=== PATIENT | male | born 1950 | race Hispanic/Latino ===

== ENCOUNTER 2017-08-10 07:49 | Emergency (ER) | payer MEDICARE, MEDICAID ==
[2017-08-10 08:31] LABS: #Eosinphils 0.1 thou/uL (0.0-0.7); #Lymphocytes 1.3 thou/uL (1.20-3.40); #Monocytes 0.6 thou/uL (0.11-0.59); #Neutrophils 7.2 thou/uL (1.40-6.50); %Basophils 0.2 % (0.0-1.0); %Eosinophils 0.6 % (0.0-10.0); %Monocytes 6.1 % (0.0-10.0); Hemoglobin 14.1 g/dL (14.0-18.0); Mean Corpuscular HGB CONC 33.3 g/dL (32.0-36.0); Mean Corpuscular Hemoglobin 30.1 pg (27.0-31.0); Mean Corpuscular Volume 90.3 fl (80.0-94.0); Mean Platelet Volume 7.3 fL (7.4-10.4); Platelet Count 221 thou/uL (130-400); RBC Distribution Width 12.9 % (11.5-14.5); Red Blood Cell (RBC) Count 4.69 mill/uL (4.70-6.10); White Blood Cell (WBC) Count 9.1 thou/uL (4.8-10.8)
[2017-08-10 08:51] LABS: ALT (SGPT) 18 U/L (8-55); AST (SGOT) 19 U/L (5-34); Albumin 4.2 g/dL (3.4-4.8); Alkaline Phosphatase 73 U/L (40-150); Anion Gap 10 mmol/L (10-20); BUN (Urea Nitrogen) 20 mg/dL (8.4-25.7); Bilirubin, Total 0.5 mg/dL (0.2-1.2); Calc. Creatinine Clearance 0 mL/min (70-130); Carbon Dioxide 27 mmol/L (23-31); Chloride 104 mmol/L (98-107); Estimated GFR-MDRD 60; Globulin 3.2 g/dL (2.4-3.5); Glucose 111 mg/dL (80-115); Potassium 4.5 mmol/L (3.5-5.1); Protein, Total 7.4 g/dL (5.8-8.1); Sodium 136 mmol/L (136-145)
[2017-08-10 09:00] LABS: Troponin I Less than 0.010 ng/mL (< 0.028)
--- NOTE | 2017-08-10 09:09 | RAD ---
PORTABLE CHEST: Date: 08/10/17 HISTORY: Cough. FINDINGS: Lung horne are clear. No infiltrate or vascular congestion. Heart and mediastinum unremarkable. IMPRESSION: No acute findings. POS: [facility]
[2017-08-10] MEDS ORDERED: methylPREDNISolone Sod Succ/PF 125 MG/2 ML VIAL ONE (09:36)
[2017-08-10] MEDS ORDERED: Sodium Chloride 0.9% 0 ML ONE ×2 (09:43→09:45)
[2017-08-10] MEDS ORDERED: cefTRIAXone\\ROCEPHIN 1 GM, Syringe 0.4 ML in Sterile Water 9.6 ML SLOW IVP SCH (10:15)
== END 2017-08-10 10:46 | disposition home or self-care (01) ==
LOC: ERS 07:49
DX: J44.9 Chronic obstructive pulmonary disease, unspecified (principal); I50.9 Heart failure, unspecified; E66.01 Morbid (severe) obesity due to excess calories; E78.5 Hyperlipidemia, unspecified; R00.1 Bradycardia, unspecified; Z87.891 Personal history of nicotine dependence; Z79.82 Long term (current) use of aspirin; Z79.899 Other long term (current) drug therapy
CPT/HCPCS: 71045; 80053; 82553; 83880; 84484; 85025; 93005; 94640; 94760; 96374; 96375; A4216; J0696; J2930; J7050; J7620

== ENCOUNTER 2018-06-02 12:21 | Day surgery (SDC) | payer MEDICARE, MEDICAID ==
[2018-05-30 14:57] VITALS: BMI 50.8
[2018-06-02 13:02] LABS: #Lymphocytes 1.2 thou/uL (1.20-3.40); #Monocytes 0.5 thou/uL (0.11-0.59); #Neutrophils 6.4 thou/uL (1.40-6.50); %Basophils 0.3 % (0.0-1.0); %Eosinophils 0.5 % (0.0-10.0); %Lymphocytes 14.9 % (21.0-51.0); %Neutrophils 78.2 % (42.0-75.0); Hemoglobin 13.1 g/dL (14.0-18.0); Mean Corpuscular HGB CONC 32.3 g/dL (32.0-36.0); Mean Corpuscular Hemoglobin 29.6 pg (27.0-31.0); Mean Corpuscular Volume 91.7 fL (78.0-98.0); Mean Platelet Volume 7.4 fL (7.4-10.4); Platelet Count 229 thou/uL (130-400); RBC Distribution Width 13.6 % (11.5-14.5); Red Blood Cell (RBC) Count 4.44 mill/uL (4.70-6.10); White Blood Cell (WBC) Count 8.2 thou/uL (4.8-10.8)
[2018-06-02 13:11] LABS: INR-International Normal Ratio 1.3; PTT 49.9 SEC (22.9-36.1); Prothrombin Time 15.8 SEC (12.0-14.7)
[2018-06-02 13:21] LABS: Anion Gap 12 mmol/L (10-20); BUN (Urea Nitrogen) 23 mg/dL (8.4-25.7); Calc. Creatinine Clearance 118 mL/min (70-130); Calcium 8.8 mg/dL (7.8-10.44); Carbon Dioxide 28 mmol/L (23-31); Chloride 105 mmol/L (98-107); Estimated GFR-MDRD 55; Glucose 101 mg/dL (80-115); Potassium 4.7 mmol/L (3.5-5.1); Sodium 140 mmol/L (136-145)
--- NOTE | 2018-06-02 15:56 | PRG ---
DATE OF SERVICE: 06/02/2018 SUBJECTIVE: I am seeing Mr. Quijano here at our [facility] PACU for a planned cardioversion. He was seen in our office on May 21, at which point, the flecainide was increased to 150 mg twice a day. He tolerated this well and is feeling better, but had some dizziness since. On today's EKG, he is back in sinus rhythm with radiation monitor reveals heart rate between 45-55 beats per minute. He does not pass out, though. No stroke-like symptoms. He continues on blood thinning medication regimen. No fever, chills, or cough. REVIEW OF SYSTEMS: Rest of 12-point system is otherwise unremarkable. OBJECTIVE DATA: VITAL SIGNS: Blood pressure is 120/80, but systolic blood pressure of 88 was seen on sitting up, heart rate 48, and respirations 20. The patient is afebrile. GENERAL: Alert and oriented, morbidly obese man, in no apparent distress. NECK: Supple. Jugular veins not distended. CHEST: Coarse. No crackles. HEART: Sounds are bradycardic, but regular. No murmur or gallop. ABDOMEN: Benign. Bowel sounds positive. EXTREMITIES: Lower extremities without edema, clubbing, or cyanosis. ASSESSMENT AND PLAN: Mr. Quijano is a pleasant 67-year-old Syriac-speaking gentleman with history of morbid obesity, hypertension, hypercholesteremia, and negative left heart catheterization in 2008 with preserved left ventricular ejection fraction. He does have history of severe pulmonary hypertension. It is likely due to obesity, possible respiratory issues. He has been managed with flecainide in the past with reasonable control of his atrial fibrillation, now had recurrent events on flecainide. We have increased the flecainide to 150 mg twice a day. Unfortunately, he is relatively a poor candidate for pulmonary venous isolation procedure due to the morbid obesity and history of pulmonary hypertension. We discussed the importance of weight loss. He is considering this and trying to eat less. Also due to his comorbidities, antiarrhythmic choices are limited, at this point, we agreed on 150 mg twice a day flecainide which seems to be controlling his rhythm better. For now, continue this. I would like to obtain a monitor hence he has lengthy bradycardia to assess any extreme. Also, we will reduce the metoprolol to 12.5 mg twice a day. Follow up as planned in about 6 weeks from now. Job ID: [id number]
== END 2018-06-02 14:47 | disposition home or self-care (01) ==
LOC: SDC 12:21
PROVIDERS: ATTEND Internal Medicine Cardiovascular Disease
DX: I48.91 Unspecified atrial fibrillation (principal); Z53.8 Procedure and treatment not carried out for other reasons
CPT/HCPCS: 36415; 80048; 85025; 85610; 85730; 93005; 93010

== ENCOUNTER 2018-06-06 19:11 | Observation (INO) | payer MEDICAID, MEDICARE ==
[2018-06-06] MEDS ORDERED: Atropine Sulfate 0.4 mg/1 ml Vial IVP PRN (21:55)
[2018-06-06 22:50] VITALS: BMI 50.2
[2018-06-07] MEDS ORDERED: Acetaminophen 650 MG Suppository PR PRN (02:01)
[2018-06-07] MEDS ORDERED: Acetaminophen 325 MG TAB PO PRN (02:01)
[2018-06-07 06:06] LABS: #Eosinphils 0.1 thou/uL (0.0-0.7); #Lymphocytes 1.6 thou/uL (1.20-3.40); #Monocytes 0.7 thou/uL (0.11-0.59); #Neutrophils 6.5 thou/uL (1.40-6.50); %Basophils 0.3 % (0.0-1.0); %Eosinophils 0.7 % (0.0-10.0); %Lymphocytes 17.6 % (21.0-51.0); %Monocytes 7.6 % (0.0-10.0); %Neutrophils 73.7 % (42.0-75.0); Hemoglobin 13.7 g/dL (14.0-18.0); Mean Corpuscular HGB CONC 31.3 g/dL (32.0-36.0); Mean Corpuscular Hemoglobin 29.4 pg (27.0-31.0); Mean Corpuscular Volume 93.8 fL (78.0-98.0); Mean Platelet Volume 7.6 fL (7.4-10.4); Platelet Count 241 thou/uL (130-400); RBC Distribution Width 13.6 % (11.5-14.5); Red Blood Cell (RBC) Count 4.67 mill/uL (4.70-6.10); White Blood Cell (WBC) Count 8.8 thou/uL (4.8-10.8)
[2018-06-07 06:26] LABS: Anion Gap 15 mmol/L (10-20); BUN (Urea Nitrogen) 21 mg/dL (8.4-25.7); Calc. Creatinine Clearance 112 mL/min (70-130); Calcium 9.2 mg/dL (7.8-10.44); Carbon Dioxide 28 mmol/L (23-31); Chloride 101 mmol/L (98-107); Estimated GFR-MDRD 53; Glucose 86 mg/dL (80-115); Potassium 4.6 mmol/L (3.5-5.1); Sodium 139 mmol/L (136-145)
[2018-06-07] MEDS: Apixaban 5 MG TAB PO SCH ×2 (10:22→21:33)
[2018-06-07] MEDS: Furosemide 40 MG TAB PO SCH (10:22)
[2018-06-07] MEDS ORDERED: Famotidine 20 MG TAB PO SCH (21:00)
[2018-06-07] MEDS ORDERED: Atorvastatin Calcium 20 MG TAB PO SCH (21:00)
[2018-06-08 06:47] LABS: Calcium 8.7 mg/dL (7.8-10.44); Chloride 105 mmol/L (98-107); Potassium 5.6 mmol/L (3.5-5.1); Sodium 135 mmol/L (136-145)
[2018-06-08 06:48] LABS: Glucose 85 mg/dL (80-115)
[2018-06-08 06:49] LABS: Carbon Dioxide 17 mmol/L (23-31)
[2018-06-08 06:51] LABS: Calc. Creatinine Clearance 123 mL/min (70-130); Estimated GFR-MDRD 59
[2018-06-08 06:52] LABS: BUN (Urea Nitrogen) 22 mg/dL (8.4-25.7)
[2018-06-08 06:53] LABS: Anion Gap 19 mmol/L (10-20)
[2018-06-08] MEDS: Furosemide 40 MG TAB PO SCH (08:34)
[2018-06-08] MEDS: Apixaban 5 MG TAB PO SCH (08:34)
[2018-06-08 11:49] VITALS: TEMP 98.1
[2018-06-08 12:50] LABS: Potassium 4.5 mmol/L (3.5-5.1)
[2018-06-08 17:12] VITALS: BP 133/87
--- NOTE | 2018-06-09 02:05 | DIS ---
DATE OF ADMISSION: 06/06/2018 DATE OF DISCHARGE: 06/08/2018 ALLERGIES: NO KNOWN DRUG ALLERGIES. CHIEF COMPLAINT: Bradycardia, unintentional flecainide overdose. FINAL DIAGNOSES: 1. Symptomatic bradycardia, secondary to unintentional increase in flecainide dose, resolved. 2. Paroxysmal atrial fibrillation. 3. Morbid obesity. 4. Hypertension. 5. Chronic venous insufficiency and chronic venous stasis dermatitis. 6. Obstructive sleep apnea. PROCEDURES PERFORMED: None. LABORATORY RESULTS: Hemoglobin 13.7, hematocrit 43.8. Sodium 135, potassium 4.5, chloride 105, anion gap 19, BUN 22, creatinine 1.23, estimated GFR 59, glucose 85, and calcium 8.7. CONSULTATIONS: None. HOSPITAL COURSE: The patient is a Syriac-speaking 67-year-old male with past medical history significant for morbid obesity and paroxysmal atrial fibrillation, who presented to the ER at the behest of his primary care physician after being seen in the office on 06/06. During that visit, PCP realized that the patient was actually taking 300 mg twice daily of flecainide as opposed to 150 mg p.o. b.i.d. She sent him to the ER for further workup and evaluation. The patient was actually seen by his EP distance learning program coordinator, Dr. Gavin, on 06/02/2018. He was actually scheduled for a cardioversion that day, but was back in normal sinus rhythm. EKG on 06/02 did show heart rate between 45 and 55 beats per minute. At that time, the patient was told to continue his flecainide 150 mg b.i.d. as well as to reduce his metoprolol to 12.5 mg twice daily. Apparently, the patient did not understand those directions. Since his hospitalization, the metoprolol and the flecainide have been held. His EKG on arrival did show sinus bradycardia with a ventricular rate of 45 beats per minute. As mentioned, his metoprolol and flecainide have been held, and his heart rate did indeed recovery per telemetry review to 80s to 100s overnight. This morning and throughout the afternoon, the patient's heart rate has been 60s to 70s. He has no symptoms. He denies any chest pain, shortness of breath, palpitations, or dizziness. He has ambulated around the room. His family is at the bedside and care has been discussed with length about appropriate medication doses. Poison Control was called when the patient was initially in the emergency room and their recommendation was admission for observation, but they did not recommend any other treatment. PHYSICAL EXAMINATION: VITAL SIGNS: Blood pressure 129/67, O2 saturation 98% on room air, pulse 72, and afebrile. GENERAL: The patient is awake, alert, and oriented x3. He is in no acute distress. He is breathing comfortably. HEENT: Atraumatic, normocephalic. Eye movement intact. NECK: Supple, no JVD. No carotid bruits. RESPIRATORY: Regular respiratory rate and pattern, clear to auscultation bilaterally. CV: S1, S2, regular rate and rhythm, no appreciable murmurs, rubs, or gallops. GI: Soft, nontender, morbidly obese. PERIPHERAL VASCULAR: Lower extremities positive for dark skin pigment consistent with chronic venous stasis dermatitis, trace edema bilaterally. NEUROLOGIC: Nonfocal. CONDITION AT DISCHARGE: Stable. DISCHARGE MEDICATIONS: 1. Eliquis 5 mg one tablet p.o. b.i.d. 2. Famotidine 20 mg tablet one tablet p.o. at bedtime. 3. Furosemide 40 mg tablet one p.o. daily. 4. Atorvastatin 20 mg one tablet p.o. at bedtime. 5. Enalapril 10 mg one tablet daily. His home medication of metoprolol has been stopped. I have instructed him to restart flecainide 150 mg p.o. b.i.d. in another 24 hours. This has been discussed with the patient at length. DISCHARGE DISPOSITION: Home. PLAN: The patient's heart rate has recovered, he is completely asymptomatic, and will be discharged home today. Considering the 20-hour half-life of flecainide, it is reasonable for him to restart his flecainide day after tomorrow. He has remained in sinus rhythm, and serial EKGs have showed QTc in the 480 millisecond range. He will follow up with Dr. Gavin as an outpatient. We will hold metoprolol indefinitely in light of bradycardia, and this will be deferred to Dr. Gavin to manage as an outpatient. He has been counseled regarding the dangers and risks to help with his morbid obesity. Diet and exercise discussed. He will also follow up with his primary care physician. Job ID: [id number]
--- NOTE | 2018-06-09 07:53 | HP ---
CHIEF COMPLAINT: Flecainide overdose, asymptomatic. HISTORY OF PRESENT ILLNESS: The patient is a 67-year-old male, who speaks very little Greenlandic, who presented to the emergency room in [place]. Yesterday, apparently he was taking flecainide double dose, instead of one tablet he was taking two tablets twice a day. He was bradycardic and was sent to emergency room at [facility] for further management. The patient did not have any complaints to offer. He denied any chest pain. He denied any shortness of breath. He denied any palpitations. PAST MEDICAL HISTORY: Positive for: 1. Congestive heart failure. 2. Atrial fibrillation. 3. Gastroesophageal reflux disease. 4. Hyperlipidemia. 5. Osteoarthritis. 6. Obesity. 7. Chronic obstructive pulmonary disease. 8. Sleep apnea. PAST SURGICAL HISTORY: Umbilical hernia repair. ALLERGIES: NONE. FAMILY HISTORY: Parents in their 70s and 80s of unclear cause. SOCIAL HISTORY: He used to smoke. He quit 10 years ago. He denies any alcohol intake and illicit drug use. MEDICATIONS: 1. Atorvastatin 20 mg at bedtime. 2. Eliquis 5 mg twice a day. 3. Enalapril 10 mg twice a day. 4. Flecainide as stated above double dose, which was 2 tablets twice a day for 2 weeks by accident. 5. Lasix 40 mg once a day. 6. Lopressor 50 mg half a tablet twice a day. REVIEW OF SYSTEMS: Unobtainable at this moment since the patient does not speak much Greenlandic and official court interpreter is not available. PHYSICAL EXAMINATION: VITAL SIGNS: Blood pressure is 124/73, pulse is 48, temperature is 97.9, respirations 20, and O2 saturation is 99% on 2 L by nasal cannula. GENERAL: He is not in any distress during my visit. His is present in the room. HEENT: His head is atraumatic and normocephalic. Eyes, pupils are responding to light properly. Sclerae are nonicteric. Oral mucosa is moist. NECK: Supple. LUNGS: Breath sounds somewhat diminished at both bases. HEART: S1 and S2. Bradycardic. No S3. No S4. ABDOMEN: Soft, obese, distended, but nontender to palpation. No guarding. No masses. EXTREMITIES: 1 to 2+ peripheral edema with black skin discoloration of both lower extremities above both ankles. Pulses are somewhat diminished on both feet on dorsalis pedis and tibialis posterior arteries similar bilaterally. NEUROLOGIC: He follows my commands. He moves his all 4 extremities. There are no any motor or sensory deficits. Cranial nerves are intact. LABORATORY DATA: Labs showed white count of 8.8, hemoglobin 13.7, hematocrit 43.8, platelet count 241,000. Normal electrolytes. Creatinine 1.35, glucose 86, calcium 9.2, and the rest of chemistry within normal limits. IMPRESSION: 1. Overdose on flecainide with bradycardia on the heart monitoring. The patient is asymptomatic. 2. Bradycardia secondary to #1. 3. History of congestive heart failure. 4. History of chronic obstructive pulmonary disease. 5. Hyperlipidemia. 6. History of atrial fibrillation. 7. Noncompliance. 8. Osteoarthritis. 9. Obesity. 10. Sleep apnea. 11. Gastroesophageal reflux disease. PLAN: Plan is admission to observation. Condition is fair. Telemetry bed. Cardiac monitoring. Diet, low salt. Activity, bedrest and bathroom privileges without assistance. He is on apixaban. We are going to continue that. We will do SCDs for DVT prophylaxis. We are holding his flecainide and beta eusebia. We will restart his IRENE inhibitor, most likely tomorrow. His creatinine is slightly elevated at 1.35. This could be related to his diuretic use. We will continue Lasix starting tomorrow after repeating his creatinine in the morning. [facility] from the emergency room and they recommend just monitoring and supportive care, and the patient should be able to go home in the next approximately 48 hours most likely. Job ID: [id number]
== END 2018-06-08 17:32 | disposition home or self-care (01) ==
LOC: ERS 19:11 → 2NO 19:50
PROVIDERS: ADMIT Hospitalist; ATTEND Hospitalist
DX: T46.2X1A Poisoning by other antidysrhythmic drugs, accidental (unintentional), initial encounter (principal); R00.1 Bradycardia, unspecified; I48.0 Paroxysmal atrial fibrillation; E66.01 Morbid (severe) obesity due to excess calories; Z68.43 Body mass index [BMI] 50.0-59.9, adult; I10 Essential (primary) hypertension; I87.2 Venous insufficiency (chronic) (peripheral); G47.33 Obstructive sleep apnea (adult) (pediatric); K21.9 Gastro-esophageal reflux disease without esophagitis; E78.5 Hyperlipidemia, unspecified; M19.90 Unspecified osteoarthritis, unspecified site; J44.9 Chronic obstructive pulmonary disease, unspecified; Z87.891 Personal history of nicotine dependence; Z79.01 Long term (current) use of anticoagulants; Z79.899 Other long term (current) drug therapy; Z98.890 Other specified postprocedural states
CPT/HCPCS: 80048 ×2; 84132; 85025; 93005 ×2; 99285; G0378 ×2; 36415; 93010

== ENCOUNTER 2018-07-04 07:03 | Observation (INO) | payer MEDICARE, MEDICAID ==
[2018-07-04 07:58] LABS: #Lymphocytes 1.4 thou/uL (1.20-3.40); #Monocytes 0.4 thou/uL (0.11-0.59); #Neutrophils 5.8 thou/uL (1.40-6.50); %Basophils 0.1 % (0.0-1.0); %Eosinophils 0.6 % (0.0-10.0); %Lymphocytes 17.9 % (21.0-51.0); %Monocytes 4.8 % (0.0-10.0); %Neutrophils 76.5 % (42.0-75.0); Hemoglobin 13.1 g/dL (14.0-18.0); Mean Corpuscular HGB CONC 32.1 g/dL (32.0-36.0); Mean Corpuscular Hemoglobin 28.6 pg (27.0-31.0); Mean Corpuscular Volume 89.1 fL (78.0-98.0); Platelet Count 222 thou/uL (130-400); RBC Distribution Width 13.1 % (11.5-14.5); Red Blood Cell (RBC) Count 4.57 mill/uL (4.70-6.10); White Blood Cell (WBC) Count 7.6 thou/uL (4.8-10.8)
--- NOTE | 2018-07-04 08:02 | RAD ---
FPortable frontal chest radiograph: 07/04/2018 COMPARISON: 06/06/2018 HISTORY: Chest pain and left arm numbness FINDINGS: Mild pulmonary vascular prominence. Prominent enlargement of the cardiac silhouette, stable . No focal consolidation or alveolar edema. Evaluation of the lung bases limited secondary to enlarge d cardiac silhouette, portable technique, and patient body habitus. IMPRESSION: Prominent cardiac silhouette.
[2018-07-04 08:26] LABS: ALT (SGPT) 15 U/L (8-55); AST (SGOT) 17 U/L (5-34); Albumin 3.9 g/dL (3.4-4.8); Alkaline Phosphatase 69 U/L (40-150); Anion Gap 11 mmol/L (10-20); BUN (Urea Nitrogen) 20 mg/dL (8.4-25.7); Bilirubin, Total 0.5 mg/dL (0.2-1.2); Calc. Creatinine Clearance 0 mL/min (70-130); Calcium 8.9 mg/dL (7.8-10.44); Carbon Dioxide 28 mmol/L (23-31); Chloride 102 mmol/L (98-107); Estimated GFR-MDRD 49; Globulin 2.9 g/dL (2.4-3.5); Glucose 137 mg/dL (80-115); Potassium 4.2 mmol/L (3.5-5.1); Protein, Total 6.8 g/dL (5.8-8.1); Sodium 137 mmol/L (136-145)
[2018-07-04] MEDS ORDERED: Ondansetron PF 4 MG/2 ML Vial IVP PRN (09:00)
[2018-07-04] MEDS ORDERED: Ondansetron ODT 4 MG TAB SL PRN (09:00)
[2018-07-04] MEDS ORDERED: Acetaminophen 325 MG TAB PO PRN (09:00)
[2018-07-04] MEDS ORDERED: Aspirin 300 MG Suppository ONE (09:16)
[2018-07-04] MEDS ORDERED: Aspirin 325 MG TAB ONE (09:17)
[2018-07-04 11:10] LABS: Troponin I Less than 0.010 ng/mL (< 0.028)
[2018-07-04 11:23] VITALS: BMI 49.8
[2018-07-04 13:41] LABS: Troponin I Less than 0.010 ng/mL (< 0.028)
--- NOTE | 2018-07-04 16:07 | HP ---
CHIEF COMPLAINT: Chest pain. HISTORY OF PRESENT ILLNESS: This patient is a 67-year-old male, who presented via the emergency department, complaining of chest pain and shortness of breath history. The patient reported sensation of chest pressure on the left side of the chest starting yesterday. It lasted for about 4 hours and then spontaneously resolved. He had not had prior symptoms like this previously. He states that the pressure was associated with some shortness of breath and lightheadedness as well as some numbness that he felt going down his left arm. He states that the dizziness and shortness of breath resolved with the chest symptoms, however, the numbness has persisted and is only now starting to completely resolve. He does have some generalized exertional dyspnea, but none at rest. He has edema in his lower extremities. It was worse yesterday. Denies any recent medication changes, palpitations, other neurologic symptoms, nausea, or vomiting. REVIEW OF SYSTEMS: Notable for some constipation, which he relates to medications. All other systems reviewed and pertinent positives and negatives noted in the history of present illness. PAST MEDICAL HISTORY: Notable for atrial fibrillation. The patient was recently admitted to the hospital with a flecainide overdose due to some miscommunication, but he continues to follow with Dr. Gavin and remains on the flecainide. He has a history of normal heart cath in June of 2016 showing normal coronaries, but he did have severe pulmonary hypertension at that time, had an echo in June 2016 showing an ejection fraction of 55% to 60% showing mild atrial dilatation, mild MR, and mild TR. He has morbid obesity, has obstructive sleep apnea for which he wears CPAP. Has hyperlipidemia, osteoarthritis, reflux, COPD, obstructive sleep apnea, and as mentioned above, severe pulmonary hypertension. He also has history of lower extremity blood clots. PAST SURGICAL HISTORY: Umbilical hernia repair. FAMILY HISTORY: Reviewed and negative per the patient. SOCIAL HISTORY: Former smoker, quit 10 years ago. Denies alcohol or drugs. He is . He is full code and his is his surrogate decision maker. ALLERGIES: NONE. CURRENT MEDICATIONS: 1. Atorvastatin 20 mg p.o. at bedtime. 2. Eliquis 5 mg p.o. b.i.d. 3. Famotidine 20 mg p.o. at bedtime. 4. Lasix 40 mg p.o. daily. 5. Enalapril 10 mg p.o. daily. 6. Flecainide 150 mg b.i.d. PHYSICAL EXAMINATION: VITAL SIGNS: Blood pressure 141/88, pulse 61, respirations 16, and O2 sat 96% on room air. GENERAL APPEARANCE: Age-appropriate male, in no distress. He is awake and alert. HEENT: PERRL. No OP lesions. Anicteric sclera. NECK: Supple and symmetric with no lymphadenopathy, JVD, or bruits. HEART: Regular with no murmurs, gallops, or rubs. LUNGS: Clear to auscultation bilaterally with no wheezes or rales. Fair air exchange. ABDOMEN: Soft, nontender, and nondistended. Normal bowel sounds. No guarding or organomegaly. EXTREMITIES: No cyanosis or clubbing. He does have 1+ pretibial pitting edema with chronic stasis dermatitis in both calves. Pulses are present, symmetric. SKIN: Warm and dry with no wheezes or rashes other than the hyperpigmentation associated with chronic stasis dermatitis. PSYCH: The patient has normal affect and normal behavior. NEUROLOGIC: Alert and oriented x3. Cranial nerves intact. Very minimal decreased sensation in the left hand. LABORATORY DATA: White count 7.6, hemoglobin 13.1, and platelets 222. Sodium 137, potassium 4.2, chloride 102, CO2 of 28, BUN 20, creatinine is 1.44, and glucose 133. Troponin less than 0.01. LFTs normal. IMAGING DATA: Chest x-ray shows prominent cardiac silhouette, but no acute cardiopulmonary disease. EKG shows first-degree AV block. IMPRESSION AND PLAN: 1. Chest pain that has resolved. The patient has a history of negative heart catheterization 2 years ago making significant coronary occlusive disease unlikely. The patient is admitted to observation. We will continue with telemetry monitoring and serial troponins. 2. History of atrial fibrillation. The patient's symptoms could potentially be related to arrhythmia. We will notify Dr. Gavin of the patient's admission. 3. Left upper extremity paresthesia, again the etiology is unclear. Does not appear to be transient ischemic attack related as it was in conjunction with the chest discomfort and appears to be resolving spontaneously. 4. Hyperlipidemia. Continue with the atorvastatin. 5. History of atrial fibrillation. Continue with the Eliquis and flecainide. 6. Hypertension. Continue enalapril. 7. Chronic kidney disease, stage 3. His creatinine is consistent with his previous readings. No further workup indicated. Job ID: [id number]
[2018-07-04] MEDS ORDERED: Atorvastatin Calcium 20 MG TAB PO SCH (21:45)
[2018-07-04] MEDS ORDERED: Apixaban 5 MG TAB PO SCH (21:45)
[2018-07-04] MEDS ORDERED: Flecainide 50 MG TAB PO SCH (22:00)
[2018-07-05 08:09] VITALS: BP 137/65; TEMP 97.7
[2018-07-05] MEDS ORDERED: Apixaban 5 MG TAB PO SCH (09:00)
[2018-07-05] MEDS ORDERED: Flecainide 50 MG TAB PO SCH (09:00)
[2018-07-05] MEDS ORDERED: Furosemide 40 MG TAB PO SCH (09:00)
--- NOTE | 2018-07-05 10:56 | DIS ---
DATE OF ADMISSION: 07/04/2018 DATE OF DISCHARGE: 07/05/2018 ALLERGIES: NO KNOWN DRUG ALLERGIES. CHIEF COMPLAINT: Chest pain, left arm numbness. FINAL DIAGNOSES: 1. Chest pain with left arm paresthesia, atypical, resolved, acute coronary syndrome ruled out. Suspect musculoskeletal radiculopathy. Normal coronary arteries per left heart catheterization in June 2016. 2. Severe obesity. 3. Obstructive sleep apnea resulting in pulmonary hypertension. 4. Paroxysmal atrial fibrillation, CHADS-VASc 3, anticoagulated with Eliquis, currently in sinus rhythm on flecainide. He will be maintained on flecainide, followed by Dr. Gavin. 5. Chronic venous insufficiency and chronic venous dermatitis. PROCEDURES PERFORMED: None. LABORATORY RESULTS: White blood cell count 7.6, hemoglobin 13.1, hematocrit 40.1, platelets 222. Sodium 137, potassium 4.2, chloride 102, BUN 20, creatinine 1.44. Liver function enzymes within normal limits. Troponin is negative x3. IMAGING RESULTS: Chest x-ray shows a prominent cardiac silhouette and no other acute cardiopulmonary process. CONSULTATIONS: None. VITAL SIGNS: Blood pressure is 137/65, O2 saturation is 93% on room air, respirations are 20. The patient is afebrile. Pulse is 63. HOSPITAL COURSE: The patient is a Irish-speaking only, 67-year-old male with past medical history significant for morbid obesity, pulmonary hypertension, paroxysmal atrial fibrillation, and obstructive sleep apnea, who presented to the hospital with complaints of chest discomfort that had actually completely resolved the day prior to his presentation at the ER. He states that the chest discomfort lasted for about 4 hours, before completely resolving on its own. He did have some numbness up and down his left arm associated with the discomfort along with some shortness of breath. The shortness of breath resolved along with the chest discomfort, but he did have some lingering symptoms of paresthesia down his left arm, so he presented to the hospital for further workup and treatment. He was admitted for chest pain rule out. All of his troponins have been negative. He has ambulated the halls without any issue. All of his presenting symptoms have now completely resolved. He denies any further chest discomfort, shortness of breath, dizziness, or paresthesias. Dr. Alexander did discuss the case with Dr. aGvin, who recommended admission overnight for telemetry monitoring. Per telemetry, the patient has remained in sinus rhythm throughout the night. He has had no pauses or noted arrhythmias. PHYSICAL EXAMINATION: GENERAL: This is a morbidly obese male, resting comfortably in no acute distress. HEENT: Atraumatic and normocephalic. Eye movements intact. Mucous membranes are moist. NECK: Supple, obese. No appreciable JVD. No carotid bruits. RESPIRATORY: Regular respiratory rate and pattern. Clear to auscultation bilaterally. CV: S1 and S2. Regular rate and rhythm. No appreciable murmurs, rubs, or gallops. GI: Abdomen is soft and nontender. Normal bowel sounds. Obese. PERIPHERAL VASCULAR: The patient has trace pitting edema bilaterally along with skin changes consistent with chronic venous stasis dermatitis. MUSCULOSKELETAL: No joint effusion or swelling. NEUROLOGIC: Cranial nerves 2 through 12 were intact. The patient has no focal deficits at this time. SKIN: Warm and dry. Chronic venous stasis dermatitis of the lower extremities as mentioned above. CONDITION AT DISCHARGE: Stable. DISCHARGE MEDICATIONS: 1. Eliquis 5 mg tablet one tablet p.o. b.i.d. 2. Enalapril 10 mg tablet one tablet p.o. b.i.d. 3. Flecainide 150 mg tablet p.o. b.i.d. 4. LASIX 40 mg tab daily. 5. Lipitor 20 mg tab at bedtime. DISCHARGE DISPOSITION: Home. PLAN: The patient will continue to monitor his symptoms. I have counseled him extensively on the importance of weight loss and diet. I suspect that some of his symptoms of paresthesia might be musculoskeletal discomfort from his body habitus. In any case, all of his symptoms have resolved and ACS has been ruled out. He will continue his home medications including flecainide and Eliquis. He will follow up in the outpatient setting with his primary care doctor and Dr. Gavin. Care discussed with Dr. Alexander, who agrees with the above. Job ID: [id number]
[2018-07-05] MEDS ORDERED: Atorvastatin Calcium 20 MG TAB PO SCH (21:00)
== END 2018-07-05 10:16 | disposition home or self-care (01) ==
LOC: ERS 07:03 → 2SW 08:49
PROVIDERS: ADMIT Internal Medicine; ATTEND Internal Medicine
DX: R07.89 Other chest pain (principal); G47.33 Obstructive sleep apnea (adult) (pediatric); E78.5 Hyperlipidemia, unspecified; M19.90 Unspecified osteoarthritis, unspecified site; K21.9 Gastro-esophageal reflux disease without esophagitis; J44.9 Chronic obstructive pulmonary disease, unspecified; I27.20 Pulmonary hypertension, unspecified; I12.9 Hypertensive chronic kidney disease with stage 1 through stage 4 chronic kidney disease, or unspecified chronic kidney disease; N18.3 Chronic kidney disease, stage 3 (moderate); I48.0 Paroxysmal atrial fibrillation; I87.2 Venous insufficiency (chronic) (peripheral); E66.01 Morbid (severe) obesity due to excess calories; Z68.42 Body mass index [BMI] 45.0-49.9, adult; Z87.891 Personal history of nicotine dependence; Z79.01 Long term (current) use of anticoagulants; Z79.899 Other long term (current) drug therapy; Z99.89 Dependence on other enabling machines and devices
CPT/HCPCS: 71045; 80053; 84484 ×2; 85025; 93005; 99285; G0378 ×2; 36415

== ENCOUNTER 2018-09-14 18:54 | Observation (INO) | payer MEDICARE, MEDICAID ==
--- NOTE | 2018-09-14 19:25 | RAD ---
RADIOGRAPH CHEST 1 VIEW: DATE: 09/14/2018 HISTORY: 68-year-old male with chest pain FINDINGS: There is cardiomegaly. There is no evidence of airspace density, pulmonary edema, or pneumothorax. Th e lateral costophrenic angles are not effaced. Large bilateral pericardial fat pads partially obscuring lung bases. No interval change overall compared to 10/14/2016. IMPRESSION: 1) No acute pulmonary findings. 2) cardiomegaly without congestive heart failure.
[2018-09-14 19:29] LABS: #Eosinphils 0.1 thou/uL (0.0-0.7); #Lymphocytes 1.5 thou/uL (1.20-3.40); #Monocytes 0.8 thou/uL (0.11-0.59); #Neutrophils 7.5 thou/uL (1.40-6.50); %Basophils 0.2 % (0.0-1.0); %Eosinophils 0.6 % (0.0-10.0); %Lymphocytes 15.2 % (21.0-51.0); %Monocytes 7.7 % (0.0-10.0); %Neutrophils 76.2 % (42.0-75.0); Mean Corpuscular HGB CONC 32.6 g/dL (32.0-36.0); Mean Corpuscular Hemoglobin 29.3 pg (27.0-31.0); Mean Corpuscular Volume 89.6 fL (78.0-98.0); Mean Platelet Volume 7.4 fL (7.4-10.4); Platelet Count 224 thou/uL (130-400); RBC Distribution Width 13.1 % (11.5-14.5); Red Blood Cell (RBC) Count 4.43 mill/uL (4.70-6.10); White Blood Cell (WBC) Count 9.8 thou/uL (4.8-10.8)
[2018-09-14 19:54] LABS: ALT (SGPT) 13 U/L (8-55); AST (SGOT) 16 U/L (5-34); Albumin 4.2 g/dL (3.4-4.8); Alkaline Phosphatase 75 U/L (40-150); Anion Gap 15 mmol/L (10-20); BUN (Urea Nitrogen) 26 mg/dL (8.4-25.7); Bilirubin, Total 0.4 mg/dL (0.2-1.2); CK (CPK) 92 U/L (30-200); Calc. Creatinine Clearance 0 mL/min (70-130); Calcium 8.9 mg/dL (7.8-10.44); Carbon Dioxide 24 mmol/L (23-31); Chloride 104 mmol/L (98-107); Estimated GFR-MDRD 57; Globulin 2.6 g/dL (2.4-3.5); Glucose 114 mg/dL (80-115); Potassium 4.4 mmol/L (3.5-5.1); Protein, Total 6.8 g/dL (5.8-8.1); Sodium 139 mmol/L (136-145)
[2018-09-14] MEDS ORDERED: Albuterol Sulfate 2.5 mg/3 ml Neb ONE (20:11)
[2018-09-14] MEDS ORDERED: HYDROcodone/Acetaminophen 5/325 mg Tablet PO PRN ×2 (22:16)
[2018-09-14] MEDS ORDERED: Acetaminophen 325 MG TAB PO PRN (22:16)
[2018-09-14] MEDS ORDERED: Ondansetron ODT 4 MG TAB SL PRN (22:16)
[2018-09-14] MEDS ORDERED: Ondansetron PF 4 MG/2 ML Vial IVP PRN (22:16)
[2018-09-14] MEDS ORDERED: Aspirin 325 MG TAB PO SCH (22:30)
[2018-09-14 22:42] VITALS: BMI 50.9
[2018-09-14 22:56] LABS: Troponin I Less than 0.010 ng/mL (< 0.028)
--- NOTE | 2018-09-15 02:10 | HP ---
PRIMARY CARE PHYSICIAN: Juanita Jin PA-C CODE STATUS: Full code. TIME OF EVALUATION: 1105 hours. CHIEF COMPLAINT: Chest pain. HISTORY OF PRESENT ILLNESS: A 68-year-old male patient with past medical history of obesity, congestive heart failure, hyperlipidemia, came to the hospital after having chest pain that was ongoing, left-sided, no specific radiation. The chest pain lasted for one hour. It was dull, started suddenly. No clear triggers. No alleviating factors. REVIEW OF SYSTEMS: CONSTITUTIONAL: No fever, chills, or generalized weakness. RESPIRATORY: No cough, sputum production, or shortness of breath. CARDIOVASCULAR: The patient has chest pain as described in HPI. No palpitation. GASTROINTESTINAL: No nausea, vomiting, diarrhea, or abdominal pain. STAFF HOME THERAPY RN: No dizziness, headache, or feeling lightheaded. GENITOURINARY: No burning on urination. EXTREMITIES: No leg swelling. All other systems were reviewed and negative except for the findings mentioned above. PAST MEDICAL HISTORY: As mentioned in the HPI. PAST SURGICAL HISTORY: Hernia repair. PSYCHIATRIC HISTORY: No previous psych history. FAMILY HISTORY:Reviewed and no contributory for current presentation. SOCIAL HISTORY: No alcohol. No drugs. The patient is a former smoker, quit more than 30 years ago. KNOWN ALLERGIES: No known drug allergies. REPORTED MEDICATIONS: 1. Flecainide. 2. Atorvastatin. 3. Lasix. 4. Eliquis. PHYSICAL EXAMINATION: VITAL SIGNS: On presentation, blood pressure 128/66, heart rate 77, respiratory rate was 24, temperature 98.4, saturation 97% on room air. GENERAL APPEARANCE: The patient is alert, oriented, in no acute distress. HEENT: Eyes, normal conjunctivae. Moist oral mucosa. Anicteric. No JVD. RESPIRATORY: Bilateral air entry. No rales. No wheezes. Symmetric expansion. CARDIOVASCULAR: Normal rate, regular rhythm. No murmurs. No gallop. No edema. ABDOMEN: Soft. Normal bowel sounds. MUSCULOSKELETAL: Baseline range of motion and strength. SKIN: Warm and intact. No pallor. No rash. No redness. Capillary refill seems to be intact. NEURO: No evidence of any new focal weakness. Cranial nerves seems to be intact. PSYCH: The patient is in good mood. No anxiety. Optimal judgment. IMAGING STUDIES: EKG was reviewed. The patient has a normal sinus rhythm with a rate of 77. Chest x-ray was negative except for cardiomegaly. LABORATORY DATA: Reviewed. The patient has white count 9.8, hemoglobin 13, MCV 89.6, platelet count 224. Sodium 139, potassium 4.4, chloride 104, carbon dioxide 24, anion gap 15, BUN 26, creatinine 1.26, GFR of , glucose 114, calcium 8.9, total bilirubin 0.4. LFTs were negative. Troponin was negative x2. ASSESSMENT AND PLAN: The patient will be placed in the hospital with the following medical problems: 1. Chest pain, rule out acute coronary syndrome. The patient has chest pain, troponins are negative. EKG nondiagnostic for any acute coronary syndrome. We will monitor overnight. We will repeat troponin. We will trend. If nothing is positive, the patient may need to go for a stress test in the morning. 2. Morbidly obese. The patient has associated hypoxic, hypoventilation syndrome. We will continue oxygen support/cpap as needed especially overnight. 3. History of gastroesophageal reflux disease, reconcile home medications. This is chronic, stable. 4. Hyperlipidemia. Low-cholesterol diet is advised. Reconcile home medications. 5. Deep venous thrombosis prophylaxis. Job ID: [id number] [facility]
[2018-09-15 02:34] LABS: Troponin I Less than 0.010 ng/mL (< 0.028)
[2018-09-15] MEDS ORDERED: Apixaban 5 MG TAB PO SCH (09:00)
[2018-09-15] MEDS ORDERED: Flecainide 50 MG TAB PO SCH (09:00)
--- NOTE | 2018-09-15 11:15 | PDOC.PN ---
- Subjective Encounter Start Date: 09/15/18 Encounter Start Time: 11:13 Subjective: Patient states he is no longer experiencing left sided chest pain. -: Reports pain in right lateral chest, usually worse with coughing and moving -: Denies any trauma/strenuous activity. States its been going on for 7 days. Denies any recent long flights or car rides. No more sedentary than normal. States cough is occasional. Non productive and denies hemoptysis. Unable to characterize either left anterior nor right lateral chest pain. Reports long standing bilateral lower leg swelling with discoloration. No calf tenderness. - Objective Vital Signs & Weight: Vital Signs (12 hours) Temp Pulse Resp BP Pulse Ox 09/15/18 07:16 97.5 F L 66 24 H 115/59 L 94 L 09/15/18 03:39 97.5 F L 77 24 H 133/75 92 L Weight Weight 325 lb 6.4 oz I&O: 09/14/18 09/15/18 09/16/18 06:59 06:59 06:59 Intake Total 325 Balance 325 Result Diagrams: 09/14/18 19:21 09/14/18 19:21 Phys Exam - Physical Examination Constitutional: NAD HEENT: PERRLA Neck: supple, full ROM Respiratory: no wheezing, no rales, no rhonchi, clear to auscultation bilateral Cardiovascular: RRR Gastrointestinal: soft, non-tender, no distention, positive bowel sounds Musculoskeletal: no edema black dicoloration to bilateral lower legs, chronic due to venous stasis Neurological: normal sensation, moves all 4 limbs Psychiatric: normal affect, A&O x 3 Skin: no rash Dx/Plan (1) Chest pain Code(s): R07.9 - CHEST PAIN, UNSPECIFIED Status: Resolved Qualifiers: Chest pain type: unspecified Qualified Code(s): R07.9 - Chest pain, unspecified Plan: Trop neg x 3. No left anterior chest pain at present. For stress test today. With right lower lateral chest pain x 7 days. Pleuritic in nature. Tachypneic. O2 sat 94% on RA. D-Dimer. (2) CHF (congestive heart failure) Code(s): I50.9 - HEART FAILURE, UNSPECIFIED Status: Chronic (3) HTN (hypertension) Code(s): I10 - ESSENTIAL (PRIMARY) HYPERTENSION Status: Chronic Qualifiers: Hypertension type: essential hypertension Qualified Code(s): I10 - Essential (primary) hypertension Comment: improved control this AM (4) Hyperlipidemia Code(s): E78.5 - HYPERLIPIDEMIA, UNSPECIFIED Status: Chronic (5) Morbid obesity due to excess calories Code(s): E66.01 - MORBID (SEVERE) OBESITY DUE TO EXCESS CALORIES Status: Chronic - Plan cont current plan of care, incentive spirometry, out of bed/ambulate * .
[2018-09-15 11:21] LABS: #Eosinphils 0.1 thou/uL (0.0-0.7); #Lymphocytes 1.5 thou/uL (1.20-3.40); #Monocytes 0.6 thou/uL (0.11-0.59); #Neutrophils 6.2 thou/uL (1.40-6.50); %Basophils 0.3 % (0.0-1.0); %Eosinophils 0.8 % (0.0-10.0); %Lymphocytes 17.9 % (21.0-51.0); Hemoglobin 13.5 g/dL (14.0-18.0); Mean Corpuscular HGB CONC 33.1 g/dL (32.0-36.0); Mean Corpuscular Hemoglobin 29.6 pg (27.0-31.0); Mean Corpuscular Volume 89.2 fL (78.0-98.0); Mean Platelet Volume 7.6 fL (7.4-10.4); Platelet Count 211 thou/uL (130-400); RBC Distribution Width 13.3 % (11.5-14.5); Red Blood Cell (RBC) Count 4.55 mill/uL (4.70-6.10); White Blood Cell (WBC) Count 8.3 thou/uL (4.8-10.8)
[2018-09-15 11:41] LABS: Anion Gap 13 mmol/L (10-20); BUN (Urea Nitrogen) 19 mg/dL (8.4-25.7); Calc. Creatinine Clearance 134 mL/min (70-130); Calcium 9.2 mg/dL (7.8-10.44); Carbon Dioxide 27 mmol/L (23-31); Chloride 105 mmol/L (98-107); Estimated GFR-MDRD 65; Glucose 100 mg/dL (80-115); Potassium 4.5 mmol/L (3.5-5.1); Sodium 140 mmol/L (136-145)
--- NOTE | 2018-09-15 13:08 | NM ---
NUCLEAR MEDICINE CARDIAC MYOCARDIAL PERFUSION SPECT EJECTION FRACTION STUDY WALL MOTION CINE: DATE: 09/15/2018 History: 68 year old male with dyslipidemia and history of congestive heart failure presents with acute chest pain. TECHNIQUE: Number of days:1 Rest study: Not performed Pharmacologic stress: Lexiscan dose:0.4 mg Stress study: Technetium 99m-sestamibi (Cardiolite) dose:29.0 mCi FINDINGS: Cardiac (myocardial perfusion) SPECT There are no significant myocardial perfusion defects. Ejection fraction study Left ventricular EF = 63% Wall motion cine Normal IMPRESSION: Negative
[2018-09-15 16:13] VITALS: BP 128/64; TEMP 97.8
[2018-09-15] MEDS ORDERED: Regadenoson 0.4 MG/5 ML SYRINGE ONE (20:09)
[2018-09-15] MEDS ORDERED: Atorvastatin Calcium 20 MG TAB PO SCH (21:00)
--- NOTE | 2018-09-16 10:21 | DIS ---
DATE OF ADMISSION: 09/14/2018 DATE OF DISCHARGE: 09/15/2018 This is JENNIFER Reyes dictating a report for Kyle Hendrix MD. CONSULTING PHYSICIAN: None. DISCHARGE DIAGNOSES: 1. Atypical chest pain. 2. Congestive heart failure. 3. Hypertension. 4. Hyperlipidemia. 5. Morbid obesity. HOSPITAL COURSE: Mr. Quijano is a pleasant 68-year-old man who presented with complaints of left-sided chest pain lasting an hour. The patient's pain resolved and he remained without pain throughout his stay. He was admitted for further workup and investigations. He had serial troponins done which were negative. EKG did not show any ST changes or T-wave abnormalities. He was scheduled for a stress test done on 09/15/2018, and showed left ventricular EF of 63%, otherwise negative. The patient is therefore medically cleared for discharge home. REVIEW OF SYSTEMS: On day of discharge, the patient denies having any chest pain or shortness of breath. Denies having any nausea or vomiting. No abdominal pain or cramping. Has been tolerating regular diet after the stress test without any difficulty. Denies any abdominal pain. Has been mobilizing without any lightheadedness or dizziness. All other review of systems are negative. PHYSICAL EXAMINATION: GENERAL: The patient is obese, well developed, in no acute distress. VITAL SIGNS: Temperature 97.8, pulse 61, respirations 16, O2 saturation 97% on room air, blood pressure 128/64. HEENT: Normocephalic and atraumatic. Pupils are equal, round, and reactive to light. Sclerae without icterus. Oropharynx is clear. NECK: Supple. LUNGS: Clear to auscultation bilaterally. CARDIAC: Regular rate and rhythm. ABDOMEN: Soft, obese, nontender, nondistended. Normoactive bowel sounds present. EXTREMITIES: The patient with very black discoloration to the bilateral lower leg. It is likely associated with chronic venous stasis. No edema. No calf swelling or tenderness, the patient at baseline. NEUROLOGIC: Alert and oriented x3. No neuro deficits. Gait normal. SKIN: Without rash or jaundice. LABORATORY DATA: White blood count 8.3, hemoglobin 13.5, hematocrit 40.6, platelets 211. D-dimer 0.31. Sodium 140, potassium 4.5, chloride 105, BUN 19, creatinine 1.13, GFR 65, glucose 100, calcium 9.2. Troponin negative x3. LFTs unremarkable. Lipase normal. BNP 57.5. IMAGING DATA: Chest x-ray on 09/14/2018, no acute pulmonary findings. Cardiomegaly without congestive heart failure. CONDITION: Stable at discharge. ACTIVITY: As tolerated. DIET: Heart healthy. DISCHARGE MEDICATIONS: The patient is advised to resume his regular home medications. FOLLOWUP: 1. The patient is advised to follow up with Dr. Niño, his product development consultant as an outpatient. 2. He was advised to follow up with his primary care physician within 1 week. DISPOSITION: The patient is medically cleared for discharge home on 09/15/2018. The patient's case was discussed with Dr. Hendrix, who agrees with the plan of care as described above. Job ID: [id number]
== END 2018-09-15 18:02 | disposition home or self-care (01) ==
LOC: ERS 18:54 → 2SW 20:39
PROVIDERS: ADMIT Hospitalist; ATTEND Hospitalist
DX: R07.89 Other chest pain (principal); I11.0 Hypertensive heart disease with heart failure; I50.9 Heart failure, unspecified; E78.5 Hyperlipidemia, unspecified; E66.01 Morbid (severe) obesity due to excess calories; Z68.43 Body mass index [BMI] 50.0-59.9, adult; Z87.891 Personal history of nicotine dependence; Z79.01 Long term (current) use of anticoagulants; Z79.899 Other long term (current) drug therapy
CPT/HCPCS: 71045; 78452; 80048; 80053; 82550; 83690; 83880; 84484 ×3; 85025 ×2; 85379; 93005; 93017; 94640; 94760; 99285; A9500; G0378 ×2; 36415; J2785; J7611

== ENCOUNTER 2019-02-11 17:25 | Emergency (ER) | payer MEDICARE, MEDICAID | END 2019-02-11 20:45 | disposition home or self-care (01) | LOC: ERS 17:25 | DX: B37.2 Candidiasis of skin and nail (principal); K21.9 Gastro-esophageal reflux disease without esophagitis; I10 Essential (primary) hypertension; I48.91 Unspecified atrial fibrillation; M19.90 Unspecified osteoarthritis, unspecified site; J44.9 Chronic obstructive pulmonary disease, unspecified; E66.9 Obesity, unspecified; E78.5 Hyperlipidemia, unspecified; F03.90 Unspecified dementia, unspecified severity, without behavioral disturbance, psychotic disturbance, mood disturbance, and anxiety; Z87.891 Personal history of nicotine dependence; Z79.899 Other long term (current) drug therapy | CPT/HCPCS: 99282 ==

== ENCOUNTER 2020-01-18 08:30 | Observation (INO) | payer MEDICARE, MEDICAID, OTHER ==
--- NOTE | 2020-01-18 09:19 | RAD ---
Chest one view HISTORY: Chest pain. COMPARISON: 01/15/2020. FINDINGS: Cardiac silhouette is magnified and enlarged. Pulmonary vasculature is unremarkable. Mediastinum is midline. Left hemidiaphragm incompletely imaged. Prominent bilateral pericardial fat p ads. Upper lobes are clear. No evidence of pneumothorax. IMPRESSION : Cardiomegaly and other chronic-type findings are stable.
[2020-01-18 09:22] LABS: #Basophils 0.2 thou/uL (0.0-0.2); #Lymphocytes 1.1 thou/uL (1.20-3.40); #Monocytes 0.6 thou/uL (0.11-0.59); #Neutrophils 6.2 thou/uL (1.40-6.50); %Basophils 2.7 % (0.0-1.0); %Eosinophils 0.5 % (0.0-10.0); %Lymphocytes 13.2 % (21.0-51.0); %Monocytes 7.2 % (0.0-10.0); %Neutrophils 76.3 % (42.0-75.0); Hemoglobin 13.4 g/dL (14.0-18.0); Mean Corpuscular HGB CONC 31.6 g/dL (32.0-36.0); Mean Corpuscular Volume 88.8 fL (78.0-98.0); Mean Platelet Volume 7.7 fL (7.4-10.4); Platelet Count 238 thou/uL (130-400); RBC Distribution Width 13.2 % (11.5-14.5); Red Blood Cell (RBC) Count 4.79 mill/uL (4.70-6.10); White Blood Cell (WBC) Count 8.1 thou/uL (4.8-10.8)
[2020-01-18 09:41] LABS: ALT (SGPT) 13 U/L (8-55); AST (SGOT) 17 U/L (5-34); Albumin 4.2 g/dL (3.4-4.8); Alkaline Phosphatase 79 U/L (40-110); Anion Gap 13 mmol/L (10-20); BUN (Urea Nitrogen) 18 mg/dL (8.4-25.7); Bilirubin, Total 0.5 mg/dL (0.2-1.2); Calc. Creatinine Clearance 0 mL/min (70-130); Calcium 8.5 mg/dL (7.8-10.44); Carbon Dioxide 26 mmol/L (23-31); Chloride 102 mmol/L (98-107); Estimated GFR-MDRD 55; Globulin 3.4 g/dL (2.4-3.5); Glucose 111 mg/dL (80-115); Lipase 4 U/L (8-78); Potassium 4.8 mmol/L (3.5-5.1); Protein, Total 7.6 g/dL (5.8-8.1); Sodium 136 mmol/L (136-145)
[2020-01-18] MEDS ORDERED: Nitroglycerin 2% Ointment 1 INCH/1 GM Packet ONE (10:37)
[2020-01-18] MEDS ORDERED: Aspirin Chewable 81 MG TAB ONE (10:37)
--- NOTE | 2020-01-18 11:49 | PDOC.HHP ---
Hospitalist HPI - History of Present Illness chest pain History of Present Illness: Mr. Quijano is a 69 year-old male with a PMHx of HTN, HLD, CHF with recent EF of 63%, COPD, and ?arrhythmia (on Eliquis and Flecanide) who presents for 3 days of intermittent chest pain. Pt reports that his pain is crushing on the left side of his chest and will last for a few minutes then go away. Associated with mild SOB. Denies dizziness, lightheadedness, or palpitations. Denies N/V/D or abdominal pain. No history of prior MIs or family history of heart disease. Pt is a non-smoker. No cough or other respiratory symptoms. No known exposure to COVID. In ED initial vital signs 154/78, 85, 18, 98.2, 95% on RA. EKG showed NSR with old RBBB, no ischemic changes. Initial troponin 0.013, BNP 79.9, Na 136, K 4.8, BUN/Cr 18/1.30. CXR with no acute findings. Pt received 325 mg of ASA and nitro paste in ED. On my exam pt denies chest pain currently. Hospitalist ROS - Review of Systems Constitutional: denies: fever, chills, sweats, weakness, malaise, other Eyes: denies: pain, vision change, conjunctivae inflammation, eyelid i nflammation, redness, other ENT: denies: ear pain, ear discharge, nose pain, nose discharge, nose congestion, mouth pain, mouth swelling, throat pain, throat swelling, other Respiratory: denies: cough, dry, shortness of breath, hemoptysis, SOB with e xcertion, pleuritic pain, sputum, wheezing, other Cardiovascular: reports: chest pain. denies: palpitations, orthopnea, paroxysmal noc. dyspnea, edema, light headedness, other Gastrointestinal: denies: nausea, vomiting, abdominal pain, diarrhea, con stipation, melena, hematochezia, other Genitourinary: denies: dysuria, frequency, incontinence, hematuria, retention, other Musculoskeletal: denies: neck pain, shoulder pain, arm pain, back pain, hand pain, leg pain, foot pain, other Skin: denies: rash Neurological: denies: weakness, numbness - Medication Medications: enalapril maleate TABLET : Strength - 10 mg : ORAL Patient Dose: 10 mg Oral 2 times a day (before meals). flecainide TABLET : Strength - 100 mg : ORAL Patient Dose: 100 mg Oral 2 times a day.pt has been taking 2 pills 2x a day by accident for past 2 weeks. atorvastatin TABLET : Strength - 20 mg : ORAL Patient Dose: 20 mg Oral once a day (at bedtime). Lasix oral TABLET : Strength - 40 mg : ORAL Patient Dose: 40 mg Oral once a day. Eliquis TABLET : Strength - 5 mg : ORAL Patient Dose: 5 mg Oral 2 times a day. NKDA Hospitalist History - Past Medical History Other Medical History: Past Medical History: 1. HTN 2. HLD 3. GERD 4. COPD/Obesity hypoventilation syndrome 5. UABREE 6. Arrythmia 7. CHF - Past Surgical History Other Surgical History: Hernia Repair - Family History Family History: reports: no pertinent history - Social History Smoking Status: Never smoker Alcohol: reports: None Drugs: reports: none Living Situation: With Family Activity level: independent ambulation - Exam General Appearance: NAD, awake alert Eye: PERRL, anicteric sclera ENT: normocephalic atraumatic, no oropharyngeal lesions, moist mucosa Neck: supple, no JVD Heart: RRR, no murmur, no gallops, no rubs, normal peripheral pulses Respiratory: CTAB, no wheezes, no rales, no ronchi, normal chest expansion, no tachypnea, normal percussion Gastrointestinal: soft, non-tender, non-distended, normal bowel sounds, no palpable masses, no hepatomegaly, no splenomegaly, no bruit Extremities - other findings: hemosiderin deposition, 1+ edema Skin: normal turgor, no lesions, no rashes Neurological: cranial nerve grossly intact, normal sensation to touch, no weakness, no focal deficits, no new deficit Musculoskeletal: normal tone, normal strength, no muscle wasting Psychiatric: normal affect, normal behavior, A&O x 3 Hospitalist Results - Labs Result Diagrams: 01/19/20 04:42 01/19/20 04:42 Lab results: WBC 8.1 thou/uL (4.8-10.8) 01/18/20 09:06 Hgb 13.4 g/dL (14.0-18.0) L 01/18/20 09:06 Hct 42.5 % (42.0-52.0) 01/18/20 09:06 MCV 88.8 fL (78.0-98.0) 01/18/20 09:06 Plt Count 238 thou/uL (130-400) 01/18/20 09:06 Neutrophils % 76.3 % (42.0-75.0) H 01/18/20 09:06 Sodium 136 mmol/L (136-145) 01/18/20 09:06 Potassium 4.8 mmol/L (3.5-5.1) 01/18/20 09:06 Chloride 102 mmol/L (98-107) 01/18/20 09:06 Carbon Dioxide 26 mmol/L (23-31) 01/18/20 09:06 BUN 18 mg/dL (8.4-25.7) 01/18/20 09:06 Creatinine 1.30 mg/dL (0.7-1.3) 01/18/20 09:06 Glucose 111 mg/dL (80-115) 01/18/20 09:06 Calcium 8.5 mg/dL (7.8-10.44) 01/18/20 09:06 Total Bilirubin 0.5 mg/dL (0.2-1.2) 01/18/20 09:06 AST 17 U/L (5-34) 01/18/20 09:06 ALT 13 U/L (8-55) 01/18/20 09:06 Alkaline Phosphatase 79 U/L (40-110) 01/18/20 09:06 Troponin I 0.013 ng/mL (< 0.028) 01/18/20 09:06 B-Natriuretic Peptide 79.9 pg/mL (0-100) 01/18/20 09:06 Serum Total Protein 7.6 g/dL (5.8-8.1) 01/18/20 09:06 Albumin 4.2 g/dL (3.4-4.8) 01/18/20 09:06 Lipase 4 U/L (8-78) L 01/18/20 09:06 Hospitalist H&P A/P - Plan Plan: Mr. Quijano is a 69 year-old male with a PMHx of HTN, HLD, CHF with EF of 63%, AUBREE who presented to the ED on 01/18/20 for 3 days of intermittent chest pain. Pt admitted to medical floor for observation. Chest pain: Pt with 3 days of intermittent chest pain described as a crushing sensation on the L side of his chest that radiates to his arm. Pt experiencing chest pain at rest and on exertions. Initial troponin negative. EKG with NSR and old RBBB. BNp 79, CXR with no acute findings. Received ASA and nitro paste in ED. Will trend troponins and consult cardiology for further recommendations. PLAN: -Telemetry -Trend troponins -ASA daily -Nitro paste prn -Consider AM stress test if troponins negative -Cardiology consult Atrial-fibrillation: Hx of heart arrhythmia, presumably atrial-fibrillation although unable to confirm. Follows with Dr. Niño. Pt currently on Eliquis 5 mg BID and Flecanide 150 mg BID. EKG showed NSR. Will continue home medications and continue to monitor. PLAN: -Continue Flecanide 150 mg BID -Continue Eliquis 5 mg BID -Telemetry CHF: Hx of CHF with EF of 63%. On lasix 40 mg daily. BNP on admission 79. CXR with no acute findings. Lungs clear. PLAN: -Continue home lasix 40 mg daily -I/Os -Monitor fluid status HTN: Hx of HTN on home Enalapril 10 mg BID. Will continue. HLD: Continue home atrovastatin 20 mg. Will check lipid panel. Obesity hypoventilation syndrome/AUBREE: Uses CPAP at night. Will continue. No signs of respiratory distress. Saturating well on RA. Will continue to monitor. DVT prophylaxis: on Eliquis FULL CODE Case discussed with attending physician, Dr. De La Paz.
[2020-01-18 13:16] VITALS: BMI 50.1
[2020-01-18 13:21] LABS: Troponin I Less than 0.010 ng/mL (< 0.028)
[2020-01-18 16:06] LABS: Troponin I 0.019 ng/mL (< 0.028)
[2020-01-18 16:11] LABS: Calcium 8.7 mg/dL (7.8-10.44); Magnesium 3.1 mg/dL (1.6-2.6)
[2020-01-18 16:21] LABS: SARS-CoV-2 MS2 Positive; SARS-CoV-2 N Gene Negative; SARS-CoV-2 S Gene Negative; SARS-CoV-2 by NAA Not Detected (NotDetected); SARS-CoV-2 orf1ab Negative
[2020-01-18] MEDS: Flecainide 50 MG TAB PO SCH (20:42)
[2020-01-18] MEDS: Apixaban 5 MG TAB PO SCH (20:42)
[2020-01-19 05:50] LABS: Anion Gap 13 mmol/L (10-20); BUN (Urea Nitrogen) 17 mg/dL (8.4-25.7); Calc. Creatinine Clearance 125 mL/min (70-130); Carbon Dioxide 22 mmol/L (23-31); Chloride 104 mmol/L (98-107); Estimated GFR-MDRD 62; Potassium 5.2 mmol/L (3.5-5.1); Sodium 134 mmol/L (136-145)
[2020-01-19 05:51] LABS: Calcium 8.4 mg/dL (7.8-10.44); Cardiac Risk 2.7 (Less than 4.5); Cholesterol 102 mg/dl (< 200 Desired); Glucose 93 mg/dL (80-115); HDL Cholesterol 38 mg/dL (>60 Neg Risk); LDL Cholesterol, Calculated 50 mg/dL; Triglycerides 72 mg/dL (Less than 150)
[2020-01-19 06:04] LABS: Band 1 % (5-11); Hemoglobin 13.1 g/dL (14.0-18.0); Lymphocytes 12 % (21-51); MDiff Complete? YES; Mean Corpuscular HGB CONC 33.2 g/dL (32.0-36.0); Mean Corpuscular Hemoglobin 29.8 pg (27.0-31.0); Mean Corpuscular Volume 89.6 fL (78.0-98.0); Mean Platelet Volume 8.5 fL (7.4-10.4); Monocytes 9 % (0-10); Neutrophil 78 % (42-75); Platelet Count 205 thou/uL (130-400); RBC Distribution Width 13.2 % (11.5-14.5); Red Blood Cell (RBC) Count 4.41 mill/uL (4.70-6.10); White Blood Cell (WBC) Count 7.5 thou/uL (4.8-10.8)
[2020-01-19] MEDS ORDERED: Aspirin 325 mg Enteric Coated Tablet PO SCH (09:00)
[2020-01-19] MEDS ORDERED: Regadenoson 0.4 MG/5 ML SYRINGE ONE (09:16)
--- NOTE | 2020-01-19 13:31 | NM ---
EXAM: Cardiac SPECT HISTORY: Chest pain, CHF, COPD, atrial fibrillation, DVT, hypertension, dyslipidemia PROTOCOL: Stress only, single isotope TYPE OF STRESS: Pharmacologic stress with Lexiscan was monitored and interpreted by Dr. Mantilla RADIOPHARMACEUTICAL: 30 mCi technetium 99m-sestamibi injected intravenously FINDINGS: Homogeneous tracer distribution is seen in the myocardial segments on the post stress images. Gated SPECT LVEF: 66%% Wall motion exam: Normal IMPRESSION: Normal post stress myocardial perfusion scan.
[2020-01-19] MEDS: Flecainide 50 MG TAB PO SCH (13:43)
[2020-01-19] MEDS: Apixaban 5 MG TAB PO SCH (13:43)
[2020-01-19] MEDS ORDERED: Lisinopril 10 MG TAB PO SCH ×2 (15:30→21:00)
[2020-01-19 15:37] LABS: Magnesium 2.8 mg/dL (1.6-2.6); Potassium 4.8 mmol/L (3.5-5.1)
[2020-01-19 15:55] VITALS: TEMP 98.1
[2020-01-19 16:51] VITALS: BP 135/69
--- NOTE | 2020-01-20 00:53 | DIS ---
DATE OF ADMISSION: 01/18/2020 DATE OF DISCHARGE: 01/19/2020 DISCHARGE DIAGNOSES: 1. Chest pain, possibly secondary to gastroesophageal reflux disease. 2. Hyponatremia. 3. Hyperkalemia. 4. Anemia. CONSULTATIONS: Cardiology with Dr. Nicolas Niño. BRIEF HISTORY OF PRESENT ILLNESS: This is a 69-year-old male with a past medical history of hypertension, CHF, COPD, who presented to the emergency room with chest pain on the left side of his chest. He states that it lasts for few minutes and goes away on its own. He states that it is constant and occurs at rest and on exertion. He denies dizziness, lightheadedness, or palpitations. He described a burning sensation. When he presented to the emergency room, his vitals were normal. EKG showed normal sinus rhythm with old right bundle branch block. Initial troponin was normal. Labs showed a hemoglobin of 13.4. He was admitted for further workup. HOSPITAL COURSE: Chest pain: The patient underwent a nuclear stress test, which was normal. This was recommended by Cardiology. His troponins were trended, which were negative x3. The patient stated that his chest pain had resolved. He was advised to start taking Protonix since this might be GERD. Consider followup with his PCP in a week. Hyperkalemia: The patient's potassium increased to 5.2 on 01/18, which resolved to 4.8 after Kayexalate administration. He did receive lisinopril and his potassium did not go up. Consider repeat BMP in a week. Hypermagnesemia: The patient's magnesium level was 3.1, which improved to 2.8. The patient was advised to avoid magnesium supplementation on discharge. DISCHARGE PHYSICAL EXAMINATION: VITAL SIGNS: Temperature 98.1, heart rate 75, respiratory rate 18, O2 saturation 95% on room air, and blood pressure 135/69. GENERAL: The patient is alert, awake, and oriented x3. CVS: Regular rate and rhythm with no murmurs, rubs, or gallops. LUNGS: Clear to auscultation bilaterally. ABDOMEN: Positive bowel sounds, soft, nontender, nondistended. EXTREMITIES: No edema. LABORATORY DATA: CBC 01/18: White count 7.5, hemoglobin 13.1, hematocrit 39.5, platelet count 205. BMP 01/18: Sodium 134, potassium 4.8, chloride 104, BUN 17, creatinine 1.18. Magnesium level :3.1, which improved to 2.8. Calcium :8.4. Troponin I: 0.013, 0.010, 0.019. Lipid panel: Triglycerides 72, cholesterol 102, LDL 50, HDL 38. Lipase: 4. TSH: 0.9243. BNP: 79.9. COVID PCR 01/17: Negative. IMAGING: Chest x-ray 01/17: Cardiomegaly and other chronic type findings. Nuclear stress test 01/18: Normal post-stress myocardial scan. DISCHARGE CONDITION: Stable. ACTIVITY: As tolerated. DIET: Heart healthy diet. DISCHARGE MEDICATIONS: Protonix 40 mg p.o. daily. All other home medications were resumed. Please refer to discharge work sheet. DISCHARGE INSTRUCTIONS: The patient to follow up with his PCP in a week. He can stop taking Lasix since the EF is normal. Stop taking any multivitamins or magnesium supplementation. Job ID: [id number] [facility]
--- NOTE | 2020-02-13 13:04 | EKG ---
Test Reason : Blood Pressure : / mmHG Vent. Rate : 074 BPM Atrial Rate : 074 BPM P-R Int : 246 ms QRS Dur : 136 ms QT Int : 430 ms P-R-T Axes : 075 104 056 degrees QTc Int : 477 ms Sinus rhythm with 1st degree A-V block Right bundle branch block Abnormal ECG Confirmed by PHILIP JOHNSTON DO ([id number]), advertising editor CAMILA LUCAS ([id number] on 02/13/2020 1:03:31 PM Referred By: Confirmed By:PHILIP JOHNSTON DO
== END 2020-01-19 18:10 | disposition home or self-care (01) ==
LOC: ERS 08:30 → 2SW 10:54
PROVIDERS: ADMIT Student in an Organized Health Care Education/Training Program; ATTEND Student in an Organized Health Care Education/Training Program
DX: R07.9 Chest pain, unspecified (principal); E87.1 Hypo-osmolality and hyponatremia; E87.5 Hyperkalemia; E83.41 Hypermagnesemia; D64.9 Anemia, unspecified; I11.0 Hypertensive heart disease with heart failure; I50.9 Heart failure, unspecified; E78.5 Hyperlipidemia, unspecified; J44.9 Chronic obstructive pulmonary disease, unspecified; K21.9 Gastro-esophageal reflux disease without esophagitis; I48.91 Unspecified atrial fibrillation; E66.2 Morbid (severe) obesity with alveolar hypoventilation; Z68.43 Body mass index [BMI] 50.0-59.9, adult; Z87.891 Personal history of nicotine dependence; Z79.01 Long term (current) use of anticoagulants; Z79.899 Other long term (current) drug therapy; Z20.828 Contact with and (suspected) exposure to other viral communicable diseases
CPT/HCPCS: 71045; 78452; 80048; 80061; 82310; 83690; 83735 ×2; 83880; 84132; 84484 ×2; 85025; 93005; 93017; 94760; 99285; A9500; U0003; 36415; 80053; 84443; 87635; G0378; J2785

== ENCOUNTER 2020-01-21 18:50 | Emergency (ER) | payer MEDICARE, MEDICAID ==
[2020-01-21 19:40] LABS: #Eosinphils 0.1 thou/uL (0.0-0.7); #Lymphocytes 1.4 thou/uL (1.20-3.40); #Monocytes 0.6 thou/uL (0.11-0.59); #Neutrophils 6.9 thou/uL (1.40-6.50); %Eosinophils 0.7 % (0.0-10.0); %Lymphocytes 15.6 % (21.0-51.0); %Monocytes 6.7 % (0.0-10.0); %Neutrophils 76.9 % (42.0-75.0); Hemoglobin 13.6 g/dL (14.0-18.0); Mean Corpuscular HGB CONC 34.6 g/dL (32.0-36.0); Mean Corpuscular Hemoglobin 30.4 pg (27.0-31.0); Mean Corpuscular Volume 87.8 fL (78.0-98.0); Mean Platelet Volume 7.6 fL (7.4-10.4); Platelet Count 221 thou/uL (130-400); RBC Distribution Width 13.1 % (11.5-14.5); Red Blood Cell (RBC) Count 4.47 mill/uL (4.70-6.10)
--- NOTE | 2020-01-21 21:13 | RAD ---
PORTABLE CHEST: 01/21/20 COMPARISON: 01/18/20 exam. HISTORY: Syncope. Heart size is enlarged. Increased density in the basis is of a similar appearance to the previous ex am. Some of the changes on the right appear to be related to a prominent epicardial fat pad. The roberts ges on the left are probably also related to this. IMPRESSION: Stable overall exam. POS: HELIO
[2020-01-21 21:18] LABS: ALT (SGPT) 18 U/L (8-55); AST (SGOT) 17 U/L (5-34); Alkaline Phosphatase 72 U/L (40-110); Anion Gap 13 mmol/L (10-20); BUN (Urea Nitrogen) 17 mg/dL (8.4-25.7); Bilirubin, Total 0.4 mg/dL (0.2-1.2); Calc. Creatinine Clearance 0 mL/min (70-130); Carbon Dioxide 23 mmol/L (23-31); Chloride 102 mmol/L (98-107); Estimated GFR-MDRD 55; Globulin 3.4 g/dL (2.4-3.5); Glucose 113 mg/dL (80-115); Potassium 4.7 mmol/L (3.5-5.1); Protein, Total 7.4 g/dL (5.8-8.1); Sodium 133 mmol/L (136-145)
[2020-01-21 21:54] LABS: Bilirubin Negative (Negative); Blood, Urine Negative (Negative); Clarity Clear (Clear); Glucose, Urine (Dipstick) Normal (Negative); Ketone, Urine Negative (Negative); Leukocyte Negative Leu/uL (Negative); Nitrite Negative (Negative); Protein, Urine (Dipstick) Negative (Neg-Trace); Specific Gravity, Urine 1.013 (1.002-1.036); Urobilinogen Normal mg/dL (Less than 2)
--- NOTE | 2020-01-23 13:28 | EKG ---
Test Reason : Blood Pressure : / mmHG Vent. Rate : 069 BPM Atrial Rate : 069 BPM P-R Int : 240 ms QRS Dur : 128 ms QT Int : 446 ms P-R-T Axes : 089 104 045 degrees QTc Int : 477 ms Sinus rhythm with 1st degree A-V block Right bundle branch block Abnormal ECG Confirmed by ARMEN WISE DO ([id number]), food expeditor CAMILA LUCAS ([id number]) on 01/23/2020 1:28:23 PM Referred By: Confirmed By:ARMEN WISE DO
== END 2020-01-21 22:35 | disposition home or self-care (01) ==
LOC: ERS 18:50
DX: R53.1 Weakness (principal); I48.91 Unspecified atrial fibrillation; K21.9 Gastro-esophageal reflux disease without esophagitis; E78.5 Hyperlipidemia, unspecified; I11.0 Hypertensive heart disease with heart failure; I50.9 Heart failure, unspecified; J44.9 Chronic obstructive pulmonary disease, unspecified; G47.30 Sleep apnea, unspecified; M19.90 Unspecified osteoarthritis, unspecified site; E66.9 Obesity, unspecified; Z87.891 Personal history of nicotine dependence; Z79.01 Long term (current) use of anticoagulants; Z79.899 Other long term (current) drug therapy
CPT/HCPCS: 36415; 71045; 80053; 81003; 85025; 93005

== ENCOUNTER 2020-06-10 09:16 | Outpatient (CLI) | payer MEDICARE, MEDICAID | END 2020-06-10 09:17 | disposition home or self-care (01) | LOC: BICRAD 09:16 | PROVIDERS: ATTEND Internal Medicine Critical Care Medicine | DX: R06.00 Dyspnea, unspecified (principal) | CPT/HCPCS: 71046 ==

== ENCOUNTER 2020-07-03 06:48 | Observation (INO) | payer MEDICARE, MEDICAID ==
[2020-07-03 08:04] LABS: #Eosinphils 0.1 thou/uL (0.0-0.7); #Lymphocytes 1.1 thou/uL (1.20-3.40); #Monocytes 0.4 thou/uL (0.11-0.59); #Neutrophils 5.5 thou/uL (1.40-6.50); %Basophils 0.2 % (0.0-1.0); %Eosinophils 0.7 % (0.0-10.0); %Lymphocytes 15.2 % (21.0-51.0); %Monocytes 6.2 % (0.0-10.0); %Neutrophils 77.8 % (42.0-75.0); Hemoglobin 13.6 g/dL (14.0-18.0); Mean Corpuscular HGB CONC 32.2 g/dL (32.0-36.0); Mean Corpuscular Hemoglobin 28.8 pg (27.0-31.0); Mean Corpuscular Volume 89.4 fL (78.0-98.0); Mean Platelet Volume 7.7 fL (7.4-10.4); Platelet Count 180 thou/uL (130-400); RBC Distribution Width 13.2 % (11.5-14.5); Red Blood Cell (RBC) Count 4.73 mill/uL (4.70-6.10); White Blood Cell (WBC) Count 7.1 thou/uL (4.8-10.8)
[2020-07-03 08:25] LABS: ALT (SGPT) 18 U/L (8-55); AST (SGOT) 17 U/L (5-34); Albumin 4.1 g/dL (3.4-4.8); Alkaline Phosphatase 75 U/L (40-110); Anion Gap 14 mmol/L (10-20); BUN (Urea Nitrogen) 15 mg/dL (8.4-25.7); Bilirubin, Total 0.9 mg/dL (0.2-1.2); Calc. Creatinine Clearance 0 mL/min (70-130); Calcium 8.7 mg/dL (7.8-10.44); Carbon Dioxide 28 mmol/L (23-31); Chloride 102 mmol/L (98-107); Globulin 3.1 g/dL (2.4-3.5); Glucose 106 mg/dL (80-115); Lipase Less than 4 U/L (8-78); Potassium 4.5 mmol/L (3.5-5.1); Protein, Total 7.2 g/dL (5.8-8.1); Sodium 139 mmol/L (136-145)
[2020-07-03] MEDS ORDERED: Aspirin Chewable 81 MG TAB ONE (08:44)
[2020-07-03] MEDS ORDERED: Nitroglycerin 2% Ointment 1 INCH/1 GM Packet ONE (08:44)
[2020-07-03 13:04] LABS: Troponin I 0.013 ng/mL (< 0.028)
[2020-07-03] MEDS ORDERED: Acetaminophen 325 MG TAB PO PRN (13:29)
[2020-07-03] MEDS ORDERED: Senokot S 8.6-50 MG TAB PO PRN (13:29)
[2020-07-03] MEDS ORDERED: Ondansetron ODT 4 MG TAB PO PRN (13:29)
[2020-07-03] MEDS ORDERED: Bisacodyl 5 MG TAB PO PRN (13:29)
[2020-07-03] MEDS ORDERED: HYDROcodone/Acetaminophen 5/325 mg Tablet PO PRN (13:29)
[2020-07-03 15:36] LABS: Troponin I 0.012 ng/mL (< 0.028)
[2020-07-03 17:06] LABS: SARS-CoV-2 PCR by NAA Not Detected (NotDetected)
[2020-07-03 17:56] VITALS: BMI 54.1
[2020-07-03] MEDS: Apixaban 5 MG TAB PO SCH (19:56)
[2020-07-03] MEDS: Atorvastatin Calcium 20 MG TAB PO SCH (19:56)
[2020-07-03] MEDS: Flecainide 50 MG TAB PO SCH (19:57)
[2020-07-03] MEDS: Lisinopril 10 MG TAB PO SCH (19:57)
[2020-07-04 05:05] LABS: #Eosinphils 0.1 thou/uL (0.0-0.7); #Monocytes 0.4 thou/uL (0.11-0.59); #Neutrophils 5.7 thou/uL (1.40-6.50); %Basophils 0.5 % (0.0-1.0); %Eosinophils 0.8 % (0.0-10.0); %Lymphocytes 13.7 % (21.0-51.0); %Monocytes 6.2 % (0.0-10.0); %Neutrophils 78.9 % (42.0-75.0); Hemoglobin 12.3 g/dL (14.0-18.0); Mean Corpuscular HGB CONC 32.2 g/dL (32.0-36.0); Mean Corpuscular Hemoglobin 28.7 pg (27.0-31.0); Mean Corpuscular Volume 89.3 fL (78.0-98.0); Mean Platelet Volume 7.6 fL (7.4-10.4); Platelet Count 173 thou/uL (130-400); RBC Distribution Width 13.1 % (11.5-14.5); White Blood Cell (WBC) Count 7.2 thou/uL (4.8-10.8)
[2020-07-04 05:07] LABS: Hemoglobin A1c 5.8 % (4.0-6.0)
[2020-07-04 05:25] LABS: Anion Gap 10 mmol/L (10-20); BUN (Urea Nitrogen) 12 mg/dL (8.4-25.7); Calc. Creatinine Clearance 159 mL/min (70-130); Calcium 8.2 mg/dL (7.8-10.44); Carbon Dioxide 28 mmol/L (23-31); Chloride 104 mmol/L (98-107); Cholesterol 114 mg/dl (< 200 Desired); Glucose 94 mg/dL (80-115); HDL Cholesterol 38 mg/dL (>60 Neg Risk); LDL Cholesterol, Calculated 62 mg/dL; Potassium 4.5 mmol/L (3.5-5.1); Sodium 137 mmol/L (136-145); Triglycerides 72 mg/dL (Less than 150)
[2020-07-04] MEDS: Lisinopril 10 MG TAB PO SCH ×2 (08:50→20:45)
[2020-07-04] MEDS: Apixaban 5 MG TAB PO SCH (08:50)
[2020-07-04] MEDS: Flecainide 50 MG TAB PO SCH ×2 (08:51→20:45)
[2020-07-04] MEDS ORDERED: Enoxaparin Sodium 40 MG/0.4 ML SYRINGE SC SCH (09:00)
[2020-07-04] MEDS: Sodium Chloride 0.9% 1,000 ML IV SCH (14:36)
[2020-07-04] MEDS: Atorvastatin Calcium 20 MG TAB PO SCH (20:45)
[2020-07-05] MEDS: Sodium Chloride 0.9% 1,000 ML IV SCH (04:58)
[2020-07-05 08:23] VITALS: TEMP 98
[2020-07-05] MEDS: Flecainide 50 MG TAB PO SCH (09:00)
[2020-07-05] MEDS: Lisinopril 10 MG TAB PO SCH (09:00)
[2020-07-05 12:23] VITALS: BP 128/64
== END 2020-07-05 14:29 | disposition home or self-care (01) ==
LOC: ERS 06:48 → ERHOLD 12:15 → 2SW 17:12
PROVIDERS: ADMIT Internal Medicine; ATTEND Internal Medicine
DX: R07.89 Other chest pain (principal); R20.0 Anesthesia of skin; R13.19 Other dysphagia; I48.0 Paroxysmal atrial fibrillation; I11.0 Hypertensive heart disease with heart failure; I50.9 Heart failure, unspecified; K21.9 Gastro-esophageal reflux disease without esophagitis; E78.5 Hyperlipidemia, unspecified; I73.9 Peripheral vascular disease, unspecified; J44.9 Chronic obstructive pulmonary disease, unspecified; M47.22 Other spondylosis with radiculopathy, cervical region; I87.8 Other specified disorders of veins; L97.929 Non-pressure chronic ulcer of unspecified part of left lower leg with unspecified severity; L97.919 Non-pressure chronic ulcer of unspecified part of right lower leg with unspecified severity; I45.10 Unspecified right bundle-branch block; K59.00 Constipation, unspecified; G47.33 Obstructive sleep apnea (adult) (pediatric); E66.01 Morbid (severe) obesity due to excess calories; Z68.42 Body mass index [BMI] 45.0-49.9, adult; Z87.891 Personal history of nicotine dependence; Z79.01 Long term (current) use of anticoagulants; Z79.899 Other long term (current) drug therapy; Z20.822 Contact with and (suspected) exposure to COVID-19
CPT/HCPCS: 71045; 72040; 80048; 80061; 83036; 83690; 83880; 84484 ×2; 85025; 93005; 99285; U0003; U0005; 36415; 80053; 84443; 87635; G0378

== ENCOUNTER 2020-08-09 08:31 | Emergency (ER) | payer MEDICARE, MEDICAID ==
[2020-08-09] MEDS ORDERED: Iopamidol-370 76% 500 ML 1 ML ONE (09:41)
[2020-08-09 11:09] LABS: #Lymphocytes 1.1 thou/uL (1.20-3.40); #Monocytes 0.4 thou/uL (0.11-0.59); #Neutrophils 5.9 thou/uL (1.40-6.50); %Basophils 0.1 % (0.0-1.0); %Eosinophils 0.6 % (0.0-10.0); %Lymphocytes 14.3 % (21.0-51.0); %Monocytes 4.9 % (0.0-10.0); %Neutrophils 80.1 % (42.0-75.0); Hemoglobin 13.7 g/dL (14.0-18.0); Mean Corpuscular HGB CONC 32.1 g/dL (32.0-36.0); Mean Corpuscular Hemoglobin 28.9 pg (27.0-31.0); Mean Corpuscular Volume 90.1 fL (78.0-98.0); Mean Platelet Volume 7.6 fL (7.4-10.4); Platelet Count 213 thou/uL (130-400); RBC Distribution Width 13.5 % (11.5-14.5); Red Blood Cell (RBC) Count 4.74 mill/uL (4.70-6.10); White Blood Cell (WBC) Count 7.4 thou/uL (4.8-10.8)
[2020-08-09 11:27] LABS: ALT (SGPT) 13 U/L (8-55); AST (SGOT) 17 U/L (5-34); Albumin 4.1 g/dL (3.4-4.8); Alkaline Phosphatase 78 U/L (40-110); Anion Gap 12 mmol/L (10-20); BUN (Urea Nitrogen) 11 mg/dL (8.4-25.7); Bilirubin, Total 0.6 mg/dL (0.2-1.2); Calc. Creatinine Clearance 0 mL/min (70-130); Calcium 9.2 mg/dL (7.8-10.44); Carbon Dioxide 28 mmol/L (23-31); Chloride 104 mmol/L (98-107); Globulin 3.1 g/dL (2.4-3.5); Glucose 103 mg/dL (80-115); Lipase 6 U/L (8-78); Potassium 4.5 mmol/L (3.5-5.1); Protein, Total 7.2 g/dL (5.8-8.1); Sodium 139 mmol/L (136-145)
[2020-08-09 11:45] LABS: Bilirubin Negative (Negative); Blood, Urine Negative (Negative); Clarity Clear (Clear); Glucose, Urine (Dipstick) Normal (Negative); Ketone, Urine Negative (Negative); Leukocyte Negative Leu/uL (Negative); Nitrite Negative (Negative); Protein, Urine (Dipstick) Negative (Neg-Trace); Specific Gravity, Urine 1.013 (1.002-1.036); Urobilinogen Normal mg/dL (Less than 2); pH, Urine 7.5 (5.0-9.0)
== END 2020-08-09 13:23 | disposition home or self-care (01) ==
LOC: ERS 08:31
DX: K59.00 Constipation, unspecified (principal); K86.9 Disease of pancreas, unspecified; M54.6 Pain in thoracic spine; I50.9 Heart failure, unspecified; K21.9 Gastro-esophageal reflux disease without esophagitis; E78.5 Hyperlipidemia, unspecified; M19.90 Unspecified osteoarthritis, unspecified site; E66.9 Obesity, unspecified; J44.9 Chronic obstructive pulmonary disease, unspecified; Z87.891 Personal history of nicotine dependence
CPT/HCPCS: 74177; 80053; 81003; 83690; 85025; Q9967

== ENCOUNTER 2020-11-04 07:08 | Emergency (ER) | payer MEDICARE, MEDICAID ==
[2020-11-04 08:20] LABS: #Eosinphils 0.1 thou/uL (0.0-0.7); #Lymphocytes 1.2 thou/uL (1.20-3.40); #Monocytes 0.6 thou/uL (0.11-0.59); #Neutrophils 5.7 thou/uL (1.40-6.50); %Basophils 0.1 % (0.0-1.0); %Eosinophils 0.8 % (0.0-10.0); %Lymphocytes 16.3 % (21.0-51.0); %Monocytes 7.8 % (0.0-10.0); Hemoglobin 13.3 g/dL (14.0-18.0); Mean Corpuscular HGB CONC 33.3 g/dL (32.0-36.0); Mean Corpuscular Hemoglobin 30.5 pg (27.0-31.0); Mean Corpuscular Volume 91.3 fL (78.0-98.0); Mean Platelet Volume 7.8 fL (7.4-10.4); Platelet Count 221 thou/uL (130-400); Red Blood Cell (RBC) Count 4.35 mill/uL (4.70-6.10); White Blood Cell (WBC) Count 7.6 thou/uL (4.8-10.8)
[2020-11-04 08:36] LABS: ALT (SGPT) 14 U/L (8-55); AST (SGOT) 17 U/L (5-34); Albumin 3.9 g/dL (3.4-4.8); Alkaline Phosphatase 74 U/L (40-110); Anion Gap 8 mmol/L (10-20); BUN (Urea Nitrogen) 14 mg/dL (8.4-25.7); Bilirubin, Total 0.5 mg/dL (0.2-1.2); Calc. Creatinine Clearance 0 mL/min (70-130); Calcium 8.9 mg/dL (7.8-10.44); Carbon Dioxide 32 mmol/L (23-31); Chloride 102 mmol/L (98-107); Glucose 105 mg/dL (80-115); Lipase 4 U/L (8-78); Potassium 4.3 mmol/L (3.5-5.1); Protein, Total 6.9 g/dL (5.8-8.1); Sodium 138 mmol/L (136-145)
[2020-11-04 08:59] LABS: Bilirubin Negative (Negative); Blood, Urine Negative (Negative); Clarity Clear (Clear); Glucose, Urine (Dipstick) Normal (Negative); Ketone, Urine Negative (Negative); Leukocyte Negative Leu/uL (Negative); Nitrite Negative (Negative); Protein, Urine (Dipstick) Negative (Neg-Trace); Specific Gravity, Urine 1.016 (1.002-1.036); Urobilinogen Normal mg/dL (Less than 2)
[2020-11-04] MEDS ORDERED: Iopamidol-370 76% 500 ML 1 ML ONE (10:13)
== END 2020-11-04 11:36 | disposition home or self-care (01) ==
LOC: ERS 07:08
DX: K80.20 Calculus of gallbladder without cholecystitis without obstruction (principal); K76.0 Fatty (change of) liver, not elsewhere classified; R10.816 Epigastric abdominal tenderness; R10.33 Periumbilical pain; I11.0 Hypertensive heart disease with heart failure; I50.9 Heart failure, unspecified; I48.91 Unspecified atrial fibrillation; K21.9 Gastro-esophageal reflux disease without esophagitis; E66.9 Obesity, unspecified; J44.9 Chronic obstructive pulmonary disease, unspecified; G47.30 Sleep apnea, unspecified; E78.5 Hyperlipidemia, unspecified; I87.2 Venous insufficiency (chronic) (peripheral); Z87.891 Personal history of nicotine dependence; Z79.01 Long term (current) use of anticoagulants; Z79.899 Other long term (current) drug therapy
CPT/HCPCS: 74177; 76705; 80053; 81003; 83605; 83690; 84484; 85025; 93005; 96372; J0500; Q9967

== ENCOUNTER 2021-04-10 18:43 | Emergency (ER) | payer MEDICARE, MEDICAID ==
[~2021-04-10 18:43] MED LIST: Iopamidol-370 76% 500 ML 1 ML ONE
[2021-04-10 19:17] LABS: #Lymphocytes 0.8 thou/uL (1.20-3.40); #Monocytes 0.5 thou/uL (0.11-0.59); #Neutrophils 10.1 thou/uL (1.40-6.50); %Basophils 0.1 % (0.0-1.0); %Eosinophils 0.4 % (0.0-10.0); %Lymphocytes 7.3 % (21.0-51.0); %Monocytes 4.7 % (0.0-10.0); %Neutrophils 87.6 % (42.0-75.0); Hemoglobin 14.7 g/dL (14.0-18.0); Mean Corpuscular HGB CONC 33.4 g/dL (32.0-36.0); Mean Corpuscular Hemoglobin 30.1 pg (27.0-31.0); Mean Corpuscular Volume 90.2 fL (78.0-98.0); Mean Platelet Volume 7.1 fL (7.4-10.4); Platelet Count 224 thou/uL (130-400); RBC Distribution Width 12.7 % (11.5-14.5); Red Blood Cell (RBC) Count 4.87 mill/uL (4.70-6.10); White Blood Cell (WBC) Count 11.6 thou/uL (4.8-10.8)
[2021-04-10 19:42] LABS: ALT (SGPT) 15 U/L (8-55); AST (SGOT) 22 U/L (5-34); Alkaline Phosphatase 82 U/L (40-110); Anion Gap 14 mmol/L (10-20); BUN (Urea Nitrogen) 14 mg/dL (8.4-25.7); Bilirubin, Total 0.4 mg/dL (0.2-1.2); Calc. Creatinine Clearance 0 mL/min (70-130); Calcium 8.8 mg/dL (7.8-10.44); Carbon Dioxide 26 mmol/L (23-31); Chloride 104 mmol/L (98-107); Globulin 3.4 g/dL (2.4-3.5); Glucose 111 mg/dL (80-115); Lipase Less than 4 U/L (8-78); Protein, Total 7.4 g/dL (5.8-8.1); Sodium 139 mmol/L (136-145)
[2021-04-10] MEDS ORDERED: Acetaminophen 500 MG TAB ONE (23:02)
[2021-04-10 23:14] LABS: Bilirubin Negative (Negative); Blood, Urine Negative (Negative); Clarity Clear (Clear); Glucose, Urine (Dipstick) Normal (Negative); Ketone, Urine Negative (Negative); Leukocyte Negative Leu/uL (Negative); Nitrite Negative (Negative); Protein, Urine (Dipstick) 10 mg/dL (Neg-Trace); Specific Gravity, Urine 1.023 (1.002-1.036); Urobilinogen Normal mg/dL (Less than 2); pH, Urine 6.5 (5.0-9.0)
== END 2021-04-11 01:50 | disposition home or self-care (01) ==
LOC: ERS 18:43
DX: R10.11 Right upper quadrant pain (principal); I11.0 Hypertensive heart disease with heart failure; I50.9 Heart failure, unspecified; I48.91 Unspecified atrial fibrillation; K21.9 Gastro-esophageal reflux disease without esophagitis; E66.9 Obesity, unspecified; J44.9 Chronic obstructive pulmonary disease, unspecified; G47.30 Sleep apnea, unspecified; Z87.891 Personal history of nicotine dependence; Z79.01 Long term (current) use of anticoagulants; Z79.899 Other long term (current) drug therapy
CPT/HCPCS: 36415; 74177; 80053; 81003; 83690; 85025; Q9967

== ENCOUNTER 2021-07-15 18:36 | Observation (INO) | payer MEDICAID, MEDICARE ==
[2021-07-15 19:18] LABS: #Eosinphils 0.1 thou/uL (0.0-0.7); #Lymphocytes 1.5 thou/uL (1.20-3.40); #Monocytes 0.6 thou/uL (0.11-0.59); #Neutrophils 6.8 thou/uL (1.40-6.50); %Basophils 0.1 % (0.0-1.0); %Eosinophils 0.6 % (0.0-10.0); %Lymphocytes 17.1 % (21.0-51.0); %Monocytes 6.3 % (0.0-10.0); %Neutrophils 75.9 % (42.0-75.0); Hemoglobin 13.7 g/dL (14.0-18.0); Mean Corpuscular HGB CONC 31.6 g/dL (32.0-36.0); Mean Corpuscular Hemoglobin 29.5 pg (27.0-31.0); Mean Corpuscular Volume 93.5 fL (78.0-98.0); Mean Platelet Volume 7.1 fL (7.4-10.4); Platelet Count 229 thou/uL (130-400); RBC Distribution Width 12.9 % (11.5-14.5); Red Blood Cell (RBC) Count 4.65 mill/uL (4.70-6.10); White Blood Cell (WBC) Count 8.9 thou/uL (4.8-10.8)
[2021-07-15 19:34] LABS: ALT (SGPT) 16 U/L (8-55); AST (SGOT) 17 U/L (5-34); Albumin 4.1 g/dL (3.4-4.8); Alkaline Phosphatase 77 U/L (40-110); Anion Gap 15 mmol/L (10-20); BUN (Urea Nitrogen) 14 mg/dL (8.4-25.7); Bilirubin, Total 0.4 mg/dL (0.2-1.2); Calc. Creatinine Clearance 0 mL/min (70-130); Calcium 8.5 mg/dL (7.8-10.44); Carbon Dioxide 25 mmol/L (23-31); Chloride 104 mmol/L (98-107); Globulin 2.6 g/dL (2.4-3.5); Glucose 138 mg/dL (80-115); Potassium 4.6 mmol/L (3.5-5.1); Protein, Total 6.7 g/dL (5.8-8.1); Sodium 139 mmol/L (136-145)
[2021-07-15] MEDS ORDERED: Aspirin 325 MG TAB ONE (20:02)
[2021-07-15 21:30] VITALS: BMI 48.8
[2021-07-15 22:34] LABS: Troponin I Less than 0.010 ng/mL (< 0.028)
[2021-07-16 01:13] LABS: Troponin I Less than 0.010 ng/mL (< 0.028)
[2021-07-16] MEDS ORDERED: Nitroglycerin 0.4 MG TAB (25 Tab Bottle) SL PRN (02:54)
[2021-07-16] MEDS ORDERED: Acetaminophen 650 MG Suppository PR PRN (02:54)
[2021-07-16] MEDS ORDERED: Ondansetron ODT 4 MG TAB PO PRN (02:54)
[2021-07-16] MEDS ORDERED: Acetaminophen 325 MG TAB PO PRN (02:54)
[2021-07-16] MEDS ORDERED: Ondansetron PF 4 MG/2 ML Vial IVP PRN (02:54)
[2021-07-16] MEDS ORDERED: Pantoprazole 40 MG VIAL IVP SCH ×2 (03:15→09:00)
[2021-07-16 05:21] LABS: #Eosinphils 0.1 thou/uL (0.0-0.7); #Lymphocytes 1.4 thou/uL (1.20-3.40); #Monocytes 0.5 thou/uL (0.11-0.59); #Neutrophils 5.3 thou/uL (1.40-6.50); %Basophils 0.3 % (0.0-1.0); %Eosinophils 0.8 % (0.0-10.0); %Lymphocytes 18.9 % (21.0-51.0); %Monocytes 6.8 % (0.0-10.0); %Neutrophils 73.1 % (42.0-75.0); Hemoglobin 13.1 g/dL (14.0-18.0); Mean Corpuscular HGB CONC 32.8 g/dL (32.0-36.0); Mean Corpuscular Hemoglobin 30.7 pg (27.0-31.0); Mean Corpuscular Volume 93.8 fL (78.0-98.0); Platelet Count 185 thou/uL (130-400); RBC Distribution Width 12.8 % (11.5-14.5); Red Blood Cell (RBC) Count 4.28 mill/uL (4.70-6.10); White Blood Cell (WBC) Count 7.2 thou/uL (4.8-10.8)
[2021-07-16 05:41] LABS: Anion Gap 11 mmol/L (10-20); BUN (Urea Nitrogen) 12 mg/dL (8.4-25.7); Calc. Creatinine Clearance 137 mL/min (70-130); Calcium 8.1 mg/dL (7.8-10.44); Carbon Dioxide 27 mmol/L (23-31); Chloride 105 mmol/L (98-107); Glucose 103 mg/dL (80-115); Potassium 4.5 mmol/L (3.5-5.1); Sodium 138 mmol/L (136-145)
[2021-07-16 07:57] VITALS: TEMP 98.1
[2021-07-16] MEDS ORDERED: Enoxaparin Sodium 40 MG/0.4 ML SYRINGE SC SCH (09:00)
[2021-07-16] MEDS ORDERED: Aspirin Chewable 81 MG TAB PO SCH (09:00)
[2021-07-16 11:36] VITALS: BP 165/80
[2021-07-16 21:03] LABS: SARS-CoV-2 PCR by NAA Not Detected (NotDetected)
== END 2021-07-16 12:10 | disposition home or self-care (01) ==
LOC: ERS 18:36 → 2SW 19:55
PROVIDERS: ADMIT Student in an Organized Health Care Education/Training Program; ATTEND Internal Medicine
DX: R07.89 Other chest pain (principal); G47.33 Obstructive sleep apnea (adult) (pediatric); I48.0 Paroxysmal atrial fibrillation; I11.0 Hypertensive heart disease with heart failure; I50.30 Unspecified diastolic (congestive) heart failure; E78.5 Hyperlipidemia, unspecified; K21.9 Gastro-esophageal reflux disease without esophagitis; E66.01 Morbid (severe) obesity due to excess calories; Z68.42 Body mass index [BMI] 45.0-49.9, adult; Z87.891 Personal history of nicotine dependence; Z79.01 Long term (current) use of anticoagulants; Z79.899 Other long term (current) drug therapy; Z20.822 Contact with and (suspected) exposure to COVID-19
CPT/HCPCS: 71045; 80048; 80053; 83880; 84484 ×3; 85025 ×2; 93005; 94760; 99285; U0003; U0005; 36415; 96374; C9113; G0378

== ENCOUNTER 2021-08-05 21:17 | Observation (INO) | payer MEDICARE ==
[2021-08-05 22:11] LABS: #Lymphocytes 1.5 thou/uL (1.20-3.40); #Monocytes 0.6 thou/uL (0.11-0.59); #Neutrophils 6.2 thou/uL (1.40-6.50); %Basophils 0.2 % (0.0-1.0); %Eosinophils 0.6 % (0.0-10.0); %Lymphocytes 17.8 % (21.0-51.0); %Neutrophils 74.5 % (42.0-75.0); Hemoglobin 13.4 g/dL (14.0-18.0); Mean Corpuscular HGB CONC 32.8 g/dL (32.0-36.0); Mean Corpuscular Hemoglobin 30.2 pg (27.0-31.0); Mean Corpuscular Volume 92.3 fL (78.0-98.0); Mean Platelet Volume 7.1 fL (7.4-10.4); Platelet Count 208 thou/uL (130-400); RBC Distribution Width 12.6 % (11.5-14.5); Red Blood Cell (RBC) Count 4.42 mill/uL (4.70-6.10); White Blood Cell (WBC) Count 8.4 thou/uL (4.8-10.8)
[2021-08-05 22:38] LABS: ALT (SGPT) 13 U/L (8-55); AST (SGOT) 17 U/L (5-34); Albumin 3.9 g/dL (3.4-4.8); Alkaline Phosphatase 66 U/L (40-110); Anion Gap 13 mmol/L (10-20); BUN (Urea Nitrogen) 21 mg/dL (8.4-25.7); Bilirubin, Total 0.4 mg/dL (0.2-1.2); Calc. Creatinine Clearance 0 mL/min (70-130); Calcium 8.6 mg/dL (7.8-10.44); Carbon Dioxide 25 mmol/L (23-31); Chloride 103 mmol/L (98-107); Globulin 2.6 g/dL (2.4-3.5); Glucose 105 mg/dL (80-115); Potassium 4.4 mmol/L (3.5-5.1); Protein, Total 6.5 g/dL (5.8-8.1); Sodium 137 mmol/L (136-145)
[2021-08-06] MEDS ORDERED: Senokot S 8.6-50 MG TAB PO PRN (01:21)
[2021-08-06] MEDS ORDERED: Acetaminophen 325 MG TAB PO PRN (01:21)
[2021-08-06] MEDS ORDERED: Ondansetron PF 4 MG/2 ML Vial IVP PRN (01:21)
[2021-08-06] MEDS ORDERED: Bisacodyl 5 MG TAB PO PRN (01:21)
[2021-08-06] MEDS ORDERED: hydrALAZINE 20 MG/ML VIAL SLOW IVP PRN (01:24)
[2021-08-06] MEDS ORDERED: Melatonin 3 MG TAB PO PRN (01:24)
[2021-08-06 01:26] LABS: Troponin I Less than 0.010 ng/mL (< 0.028)
[2021-08-06] MEDS ORDERED: Sodium Chloride 0.9% 1,000 ML IV SCH (01:30)
[2021-08-06] MEDS ORDERED: Aspirin Chewable 81 MG TAB PO SCH (02:09)
[2021-08-06 02:20] VITALS: BMI 34.7
[2021-08-06] MEDS ORDERED: Pantoprazole 40 MG VIAL IVP SCH (02:20)
[2021-08-06 04:40] LABS: #Eosinphils 0.1 thou/uL (0.0-0.7); #Lymphocytes 1.7 thou/uL (1.20-3.40); #Monocytes 0.5 thou/uL (0.11-0.59); %Basophils 0.5 % (0.0-1.0); %Eosinophils 1.1 % (0.0-10.0); %Monocytes 6.7 % (0.0-10.0); %Neutrophils 68.8 % (42.0-75.0); Hemoglobin 14.1 g/dL (14.0-18.0); Mean Corpuscular HGB CONC 33.6 g/dL (32.0-36.0); Mean Corpuscular Hemoglobin 31.4 pg (27.0-31.0); Mean Corpuscular Volume 93.3 fL (78.0-98.0); Mean Platelet Volume 7.1 fL (7.4-10.4); Platelet Count 184 thou/uL (130-400); RBC Distribution Width 12.7 % (11.5-14.5); White Blood Cell (WBC) Count 7.3 thou/uL (4.8-10.8)
[2021-08-06 05:07] LABS: Hemoglobin A1c 5.8 % (4.0-6.0)
[2021-08-06 05:08] LABS: Troponin I Less than 0.010 ng/mL (< 0.028)
[2021-08-06 05:10] LABS: ALT (SGPT) 13 U/L (8-55); AST (SGOT) 19 U/L (5-34); Albumin 3.8 g/dL (3.4-4.8); Alkaline Phosphatase 65 U/L (40-110); Anion Gap 14 mmol/L (10-20); BUN (Urea Nitrogen) 17 mg/dL (8.4-25.7); Bilirubin, Total 0.6 mg/dL (0.2-1.2); Calc. Creatinine Clearance 126 mL/min (70-130); Calcium 8.5 mg/dL (7.8-10.44); Carbon Dioxide 22 mmol/L (23-31); Chloride 106 mmol/L (98-107); Globulin 2.8 g/dL (2.4-3.5); Glucose 102 mg/dL (80-115); Potassium 4.2 mmol/L (3.5-5.1); Protein, Total 6.6 g/dL (5.8-8.1); Sodium 138 mmol/L (136-145)
[2021-08-06 05:11] LABS: Cardiac Risk 2.7 (Less than 4.5)
[2021-08-06] MEDS: Furosemide 40 MG TAB PO SCH (11:57)
[2021-08-06] MEDS: Aspirin Chewable 81 MG TAB PO SCH (11:57)
[2021-08-06] MEDS: Lisinopril 10 MG TAB PO SCH ×2 (11:57→19:49)
[2021-08-06] MEDS: Flecainide 50 MG TAB PO SCH ×2 (11:57→19:48)
[2021-08-06] MEDS: Pantoprazole 40 MG VIAL IVP SCH (11:58)
[2021-08-06] MEDS ORDERED: Regadenoson 0.4 MG/5 ML SYRINGE ONE (13:57)
[2021-08-06 16:23] LABS: SARS-CoV-2 PCR by NAA Not Detected (NotDetected)
[2021-08-06] MEDS: Apixaban 5 MG TAB PO SCH (19:49)
[2021-08-06] MEDS ORDERED: Atorvastatin Calcium 20 MG TAB PO SCH (21:00)
[2021-08-07] MEDS: Furosemide 40 MG TAB PO SCH (08:28)
[2021-08-07] MEDS: Aspirin Chewable 81 MG TAB PO SCH (08:28)
[2021-08-07] MEDS: Apixaban 5 MG TAB PO SCH (08:28)
[2021-08-07] MEDS: Lisinopril 10 MG TAB PO SCH (08:28)
[2021-08-07] MEDS: Flecainide 50 MG TAB PO SCH (08:29)
[2021-08-07] MEDS: Pantoprazole 40 MG VIAL IVP SCH (08:29)
[2021-08-07] MEDS ORDERED: Nitroglycerin 0.4 MG TAB (25 Tab Bottle) SL PRN (13:41)
[2021-08-07 19:53] VITALS: BP 133/76; TEMP 98.2
[2021-08-07] MEDS ORDERED: Enoxaparin Sodium 120 MG/0.8 ML SYRINGE SC SCH (21:00)
[2021-08-08] MEDS ORDERED: Aspirin 81 mg Enteric Coated Tablet PO SCH (09:00)
== END 2021-08-07 19:50 | disposition home or self-care (01) ==
LOC: ERS 21:17 → 2SW 08-06 00:11
PROVIDERS: ADMIT Internal Medicine; ATTEND Internal Medicine
DX: R07.89 Other chest pain (principal); R55 Syncope and collapse; I11.0 Hypertensive heart disease with heart failure; I50.33 Acute on chronic diastolic (congestive) heart failure; I48.0 Paroxysmal atrial fibrillation; K21.9 Gastro-esophageal reflux disease without esophagitis; E78.2 Mixed hyperlipidemia; J44.9 Chronic obstructive pulmonary disease, unspecified; I87.8 Other specified disorders of veins; I44.0 Atrioventricular block, first degree; I45.10 Unspecified right bundle-branch block; I08.0 Rheumatic disorders of both mitral and aortic valves; R94.39 Abnormal result of other cardiovascular function study; E66.2 Morbid (severe) obesity with alveolar hypoventilation; Z68.34 Body mass index [BMI] 34.0-34.9, adult; Z87.891 Personal history of nicotine dependence; Z79.01 Long term (current) use of anticoagulants; Z79.899 Other long term (current) drug therapy; Z20.822 Contact with and (suspected) exposure to COVID-19
CPT/HCPCS: 70450; 71045; 78452; 80053; 80061; 83036; 83880; 84484 ×3; 85025; 93005; 93017; 93306; 99285; A9500; U0003; U0005; 36415; 84443; 96374; 96376; C9113; G0378; J2785; J7050

== ENCOUNTER 2021-09-03 10:02 | Emergency (ER) | payer MEDICAID, MEDICARE ==
[2021-09-03] MEDS ORDERED: Iopamidol-370 76% 500 ML 1 ML ONE (10:25)
[2021-09-03 10:32] LABS: #Eosinphils 0.1 thou/uL (0.0-0.7); #Lymphocytes 1.2 thou/uL (1.20-3.40); #Monocytes 0.5 thou/uL (0.11-0.59); %Basophils 0.5 % (0.0-1.0); %Eosinophils 0.8 % (0.0-10.0); %Neutrophils 77.6 % (42.0-75.0); Mean Corpuscular HGB CONC 32.2 g/dL (32.0-36.0); Mean Corpuscular Hemoglobin 29.9 pg (27.0-31.0); Mean Corpuscular Volume 92.9 fL (78.0-98.0); Mean Platelet Volume 7.1 fL (7.4-10.4); Platelet Count 181 thou/uL (130-400); RBC Distribution Width 12.7 % (11.5-14.5); Red Blood Cell (RBC) Count 4.68 mill/uL (4.70-6.10); White Blood Cell (WBC) Count 7.7 thou/uL (4.8-10.8)
[2021-09-03 10:56] LABS: ALT (SGPT) 12 U/L (8-55); AST (SGOT) 13 U/L (5-34); Albumin 3.9 g/dL (3.4-4.8); Alkaline Phosphatase 66 U/L (40-110); Anion Gap 9 mmol/L (10-20); BUN (Urea Nitrogen) 21 mg/dL (8.4-25.7); Bilirubin, Total 0.7 mg/dL (0.2-1.2); Calc. Creatinine Clearance 0 mL/min (70-130); Calcium 8.7 mg/dL (7.8-10.44); Carbon Dioxide 29 mmol/L (23-31); Chloride 103 mmol/L (98-107); Globulin 3.1 g/dL (2.4-3.5); Glucose 99 mg/dL (80-115); Lipase 6 U/L (8-78); Potassium 4.8 mmol/L (3.5-5.1); Sodium 136 mmol/L (136-145)
== END 2021-09-03 12:17 | disposition home or self-care (01) ==
LOC: ERS 10:02
DX: K59.00 Constipation, unspecified (principal); K86.89 Other specified diseases of pancreas; I11.0 Hypertensive heart disease with heart failure; I50.9 Heart failure, unspecified; I48.91 Unspecified atrial fibrillation; K21.9 Gastro-esophageal reflux disease without esophagitis; E78.5 Hyperlipidemia, unspecified; E66.9 Obesity, unspecified; J44.9 Chronic obstructive pulmonary disease, unspecified; Z79.01 Long term (current) use of anticoagulants; Z79.899 Other long term (current) drug therapy; Z87.891 Personal history of nicotine dependence
CPT/HCPCS: 71045; 74177; 80053; 83690; 84484; 85025; 93005; Q9967

== ENCOUNTER 2021-12-11 09:14 | Observation (INO) | payer OTHER ==
[2021-12-11 10:35] LABS: #Eosinphils 0.1 thou/uL (0.0-0.7); #Lymphocytes 1.4 thou/uL (1.20-3.40); #Monocytes 0.6 thou/uL (0.11-0.59); #Neutrophils 7.4 thou/uL (1.40-6.50); %Basophils 0.2 % (0.0-1.0); %Eosinophils 0.6 % (0.0-10.0); %Lymphocytes 15.1 % (21.0-51.0); %Monocytes 6.2 % (0.0-10.0); %Neutrophils 77.9 % (42.0-75.0); Hemoglobin 14.2 g/dL (14.0-18.0); Mean Corpuscular HGB CONC 32.6 g/dL (32.0-36.0); Mean Corpuscular Hemoglobin 30.4 pg (27.0-31.0); Mean Platelet Volume 7.7 fL (7.4-10.4); Platelet Count 211 thou/uL (130-400); RBC Distribution Width 12.7 % (11.5-14.5); Red Blood Cell (RBC) Count 4.68 mill/uL (4.70-6.10); White Blood Cell (WBC) Count 9.5 thou/uL (4.8-10.8)
[2021-12-11 10:47] LABS: ALT (SGPT) 16 U/L (8-55); AST (SGOT) 17 U/L (5-34); Albumin 4.2 g/dL (3.4-4.8); Alkaline Phosphatase 76 U/L (40-110); Anion Gap 14 mmol/L (10-20); BUN (Urea Nitrogen) 17 mg/dL (8.4-25.7); Bilirubin, Total 0.6 mg/dL (0.2-1.2); Calc. Creatinine Clearance 0 mL/min (70-130); Calcium 9.3 mg/dL (7.8-10.44); Carbon Dioxide 27 mmol/L (23-31); Chloride 102 mmol/L (98-107); Estimated GFR 77; Globulin 2.6 g/dL (2.4-3.5); Glucose 94 mg/dL (80-115); Lipase 5 U/L (8-78); Potassium 5.2 mmol/L (3.5-5.1); Protein, Total 6.8 g/dL (5.8-8.1); Sodium 138 mmol/L (136-145)
[2021-12-11 11:17] LABS: Bilirubin Negative (Negative); Blood, Urine Negative (Negative); Clarity Clear (Clear); Glucose, Urine (Dipstick) Normal (Negative); Ketone, Urine Negative (Negative); Leukocyte Negative Leu/uL (Negative); Nitrite Negative (Negative); Protein, Urine (Dipstick) Negative (Neg-Trace); Specific Gravity, Urine 1.008 (1.002-1.036); Urobilinogen Normal mg/dL (Less than 2); pH, Urine 6.5 (5.0-9.0)
[2021-12-11] MEDS ORDERED: Senokot S 8.6-50 MG TAB PO PRN (13:27)
[2021-12-11] MEDS ORDERED: Ondansetron PF 4 MG/2 ML Vial IVP PRN (13:27)
[2021-12-11] MEDS ORDERED: Bisacodyl 5 MG TAB PO PRN (13:27)
[2021-12-11] MEDS ORDERED: Acetaminophen 325 MG TAB PO PRN (13:27)
[2021-12-11] MEDS ORDERED: Ondansetron ODT 4 MG TAB PO PRN (13:27)
[2021-12-11 16:11] LABS: Magnesium 2.2 mg/dL (1.6-2.6)
[2021-12-11 16:18] LABS: Troponin I Less than 0.010 ng/mL (< 0.028)
[2021-12-11 18:06] LABS: SARS-CoV-2 NAA Rapid Test Not Detected (NotDetected)
[2021-12-11 18:26] VITALS: BMI 47.9
[2021-12-11 22:14] LABS: Troponin I Less than 0.010 ng/mL (< 0.028)
[2021-12-12 05:19] LABS: #Eosinphils 0.1 thou/uL (0.0-0.7); #Lymphocytes 1.1 thou/uL (1.20-3.40); #Monocytes 0.5 thou/uL (0.11-0.59); #Neutrophils 5.4 thou/uL (1.40-6.50); %Basophils 0.2 % (0.0-1.0); %Eosinophils 1.1 % (0.0-10.0); %Lymphocytes 15.5 % (21.0-51.0); %Monocytes 7.1 % (0.0-10.0); %Neutrophils 76.3 % (42.0-75.0); Hemoglobin 13.8 g/dL (14.0-18.0); Mean Corpuscular HGB CONC 32.6 g/dL (32.0-36.0); Mean Corpuscular Hemoglobin 30.2 pg (27.0-31.0); Mean Corpuscular Volume 92.6 fL (78.0-98.0); Mean Platelet Volume 7.4 fL (7.4-10.4); Platelet Count 179 thou/uL (130-400); RBC Distribution Width 12.7 % (11.5-14.5); Red Blood Cell (RBC) Count 4.56 mill/uL (4.70-6.10)
[2021-12-12 05:37] LABS: Anion Gap 13 mmol/L (10-20); BUN (Urea Nitrogen) 15 mg/dL (8.4-25.7); Calc. Creatinine Clearance 138 mL/min (70-130); Calcium 8.8 mg/dL (7.8-10.44); Carbon Dioxide 27 mmol/L (23-31); Chloride 103 mmol/L (98-107); Estimated GFR 82; Glucose 92 mg/dL (80-115); Potassium 4.4 mmol/L (3.5-5.1); Sodium 139 mmol/L (136-145)
[2021-12-12] MEDS ORDERED: Acetaminophen 325 MG TAB PO PRN (08:23)
[2021-12-12] MEDS: Polyethylene Glycol 3350 17 GM Packet PO SCH ×2 (09:40→09:50)
[2021-12-12] MEDS: Flecainide 50 MG TAB PO SCH ×2 (09:41→20:47)
[2021-12-12] MEDS: Lisinopril 10 MG TAB PO SCH ×2 (09:41→20:47)
[2021-12-12] MEDS: Furosemide 40 MG TAB PO SCH (09:41)
[2021-12-12] MEDS ORDERED: Bisacodyl 5 MG TAB PO SCH (10:45)
[2021-12-12] MEDS ORDERED: Polyethylene Glycol 3350 17 GM Packet PO SCH (18:00)
[2021-12-12] MEDS ORDERED: Atorvastatin Calcium 20 MG TAB PO SCH (21:00)
[2021-12-12] MEDS: Apixaban 5 MG TAB PO SCH (21:28)
[2021-12-13 05:26] LABS: #Eosinphils 0.1 thou/uL (0.0-0.7); #Lymphocytes 1.3 thou/uL (1.20-3.40); #Monocytes 0.7 thou/uL (0.11-0.59); #Neutrophils 6.2 thou/uL (1.40-6.50); %Eosinophils 0.9 % (0.0-10.0); %Lymphocytes 15.5 % (21.0-51.0); %Monocytes 7.9 % (0.0-10.0); %Neutrophils 75.7 % (42.0-75.0); Hemoglobin 14.2 g/dL (14.0-18.0); Mean Corpuscular HGB CONC 32.4 g/dL (32.0-36.0); Mean Corpuscular Volume 92.4 fL (78.0-98.0); Mean Platelet Volume 7.3 fL (7.4-10.4); Platelet Count 189 thou/uL (130-400); RBC Distribution Width 12.7 % (11.5-14.5); Red Blood Cell (RBC) Count 4.73 mill/uL (4.70-6.10); White Blood Cell (WBC) Count 8.2 thou/uL (4.8-10.8)
[2021-12-13 05:52] LABS: Anion Gap 14 mmol/L (10-20); BUN (Urea Nitrogen) 20 mg/dL (8.4-25.7); Calc. Creatinine Clearance 117 mL/min (70-130); Calcium 8.7 mg/dL (7.8-10.44); Carbon Dioxide 27 mmol/L (23-31); Chloride 101 mmol/L (98-107); Estimated GFR 67; Glucose 93 mg/dL (80-115); Potassium 4.2 mmol/L (3.5-5.1); Sodium 138 mmol/L (136-145)
[2021-12-13] MEDS: Flecainide 50 MG TAB PO SCH (08:32)
[2021-12-13] MEDS: Apixaban 5 MG TAB PO SCH (08:32)
[2021-12-13] MEDS: Furosemide 40 MG TAB PO SCH (08:34)
[2021-12-13] MEDS: Lisinopril 10 MG TAB PO SCH (08:34)
[2021-12-13] MEDS: Polyethylene Glycol 3350 17 GM Packet PO SCH (08:36)
[2021-12-13 12:24] VITALS: BP 127/76; TEMP 98.1
== END 2021-12-13 12:58 | disposition home or self-care (01) ==
LOC: ERS 09:14 → ERHOLD 13:27 → NEURO 18:10
PROVIDERS: ADMIT Internal Medicine; ATTEND Internal Medicine
DX: J44.9 Chronic obstructive pulmonary disease, unspecified (principal); J96.11 Chronic respiratory failure with hypoxia; K59.00 Constipation, unspecified; R10.84 Generalized abdominal pain; E87.6 Hypokalemia; G47.33 Obstructive sleep apnea (adult) (pediatric); I48.20 Chronic atrial fibrillation, unspecified; I11.9 Hypertensive heart disease without heart failure; K21.9 Gastro-esophageal reflux disease without esophagitis; E78.5 Hyperlipidemia, unspecified; I73.9 Peripheral vascular disease, unspecified; I87.2 Venous insufficiency (chronic) (peripheral); K80.20 Calculus of gallbladder without cholecystitis without obstruction; K86.2 Cyst of pancreas; E66.01 Morbid (severe) obesity due to excess calories; Z68.42 Body mass index [BMI] 45.0-49.9, adult; Z79.01 Long term (current) use of anticoagulants; Z79.899 Other long term (current) drug therapy; Z99.81 Dependence on supplemental oxygen; Z20.822 Contact with and (suspected) exposure to COVID-19
CPT/HCPCS: 71045; 74177; 80048 ×2; 81003; 83690; 83735; 84484 ×2; 85025 ×2; 93005; U0002; 36415; 80053; 84443; G0378; Q9967

== ENCOUNTER 2022-02-18 10:16 | Observation (INO) | payer OTHER ==
[2022-02-18 11:01] LABS: #Eosinphils 0.1 thou/uL (0.0-0.7); #Lymphocytes 1.2 thou/uL (1.20-3.40); #Monocytes 0.5 thou/uL (0.11-0.59); %Eosinophils 0.8 % (0.0-10.0); %Neutrophils 77.1 % (42.0-75.0); Hemoglobin 13.4 g/dL (14.0-18.0); Mean Corpuscular HGB CONC 32.6 g/dL (32.0-36.0); Mean Corpuscular Hemoglobin 30.1 pg (27.0-31.0); Mean Corpuscular Volume 92.4 fl (78.0-98.0); Mean Platelet Volume 7.6 fL (7.4-10.4); Platelet Count 219 10x3/uL (130-400); RBC Distribution Width 12.4 % (11.5-14.5); Red Blood Cell (RBC) Count 4.46 mill/uL (4.70-6.10); White Blood Cell (WBC) Count 7.7 10x3/uL (4.8-10.8)
[2022-02-18 11:22] LABS: ALT (SGPT) 19 U/L (8-55); AST (SGOT) 17 U/L (5-34); Alkaline Phosphatase 75 U/L (40-110); Anion Gap 12 mmol/L (10-20); BUN (Urea Nitrogen) 16 mg/dL (8.4-25.7); Bilirubin, Total 0.6 mg/dL (0.2-1.2); Calc. Creatinine Clearance 0 mL/min (70-130); Carbon Dioxide 25 mmol/L (23-31); Chloride 103 mmol/L (98-107); Estimated GFR 74; Globulin 3.2 g/dL (2.4-3.5); Glucose 105 mg/dL (80-115); Lipase 4 U/L (8-78); Potassium 4.5 mmol/L (3.5-5.1); Protein, Total 7.2 g/dL (5.8-8.1); Sodium 135 mmol/L (136-145)
[2022-02-18] MEDS ORDERED: Aspirin Chewable 81 MG TAB ONE (12:00)
[2022-02-18 12:03] LABS: SARS-CoV-2 NAA Rapid Test Not Detected (NotDetected)
[2022-02-18] MEDS ORDERED: Ondansetron PF 4 MG/2 ML Vial ONE (12:26)
[2022-02-18] MEDS ORDERED: Morphine 4 MG/ML VIAL ONE (12:26)
[2022-02-18] MEDS ORDERED: Acetaminophen 325 MG TAB PO PRN (13:29)
[2022-02-18 14:27] VITALS: BMI 50.1
[2022-02-18 14:27] LABS: Troponin I Less than 0.010 ng/mL (< 0.028)
[2022-02-18] MEDS: Flecainide 50 MG TAB PO SCH (20:13)
[2022-02-18] MEDS: Apixaban 5 MG TAB PO SCH (20:13)
[2022-02-18] MEDS: Famotidine 20 MG TAB PO SCH (20:13)
[2022-02-18] MEDS ORDERED: Atorvastatin Calcium 20 MG TAB PO SCH (21:00)
[2022-02-19 05:21] LABS: #Eosinphils 0.1 thou/uL (0.0-0.7); #Lymphocytes 1.3 thou/uL (1.20-3.40); #Monocytes 0.6 thou/uL (0.11-0.59); #Neutrophils 5.2 thou/uL (1.40-6.50); %Basophils 0.2 % (0.0-1.0); %Eosinophils 0.9 % (0.0-10.0); %Monocytes 7.8 % (0.0-10.0); Hemoglobin 12.7 g/dL (14.0-18.0); Mean Corpuscular HGB CONC 32.2 g/dL (32.0-36.0); Mean Corpuscular Hemoglobin 30.5 pg (27.0-31.0); Mean Corpuscular Volume 94.8 fl (78.0-98.0); Mean Platelet Volume 7.4 fL (7.4-10.4); Platelet Count 214 10x3/uL (130-400); RBC Distribution Width 12.4 % (11.5-14.5); Red Blood Cell (RBC) Count 4.15 mill/uL (4.70-6.10); White Blood Cell (WBC) Count 7.1 10x3/uL (4.8-10.8)
[2022-02-19 05:42] LABS: Anion Gap 11 mmol/L (10-20); BUN (Urea Nitrogen) 16 mg/dL (8.4-25.7); Calc. Creatinine Clearance 123 mL/min (70-130); Calcium 8.5 mg/dL (7.8-10.44); Carbon Dioxide 26 mmol/L (23-31); Chloride 105 mmol/L (98-107); Estimated GFR 70; Glucose 97 mg/dL (80-115); Potassium 4.5 mmol/L (3.5-5.1); Sodium 137 mmol/L (136-145)
[2022-02-19] MEDS: Flecainide 50 MG TAB PO SCH (08:49)
[2022-02-19] MEDS: Famotidine 20 MG TAB PO SCH (08:49)
[2022-02-19] MEDS ORDERED: Aspirin Chewable 81 MG TAB PO SCH (09:00)
[2022-02-19] MEDS ORDERED: Furosemide 40 MG TAB PO SCH (09:00)
[2022-02-19] MEDS ORDERED: Lisinopril 10 MG TAB PO SCH (09:00)
[2022-02-19 11:56] VITALS: BP 131/66; TEMP 97.5
[2022-02-19] MEDS: Apixaban 5 MG TAB PO SCH (15:07)
== END 2022-02-19 15:33 | disposition home or self-care (01) ==
LOC: ERS 10:16 → 2SW 12:49
PROVIDERS: ADMIT Internal Medicine; ATTEND Internal Medicine
DX: R07.2 Precordial pain (principal); I11.0 Hypertensive heart disease with heart failure; I50.33 Acute on chronic diastolic (congestive) heart failure; K21.9 Gastro-esophageal reflux disease without esophagitis; I44.0 Atrioventricular block, first degree; I48.0 Paroxysmal atrial fibrillation; I87.8 Other specified disorders of veins; J44.9 Chronic obstructive pulmonary disease, unspecified; E78.2 Mixed hyperlipidemia; I87.2 Venous insufficiency (chronic) (peripheral); I08.1 Rheumatic disorders of both mitral and tricuspid valves; E66.2 Morbid (severe) obesity with alveolar hypoventilation; Z68.43 Body mass index [BMI] 50.0-59.9, adult; Z87.891 Personal history of nicotine dependence; Z79.01 Long term (current) use of anticoagulants; Z79.899 Other long term (current) drug therapy; Z20.822 Contact with and (suspected) exposure to COVID-19
CPT/HCPCS: 71045; 80048; 80053; 83690; 83880; 84484 ×2; 85025 ×2; 93005; 93306; 94760; 96374; 96375; 99285; U0002; 36415; G0378; J2270; J2405

== ENCOUNTER 2022-04-24 10:39 | Outpatient (CLI) | payer OTHER | END 2022-04-24 10:40 | disposition home or self-care (01) | LOC: BICRAD 10:39 | PROVIDERS: ATTEND Family Medicine | DX: R06.02 Shortness of breath (principal) | CPT/HCPCS: 71045 ==

== ENCOUNTER 2022-04-27 15:55 | Emergency (ER) | payer OTHER ==
[2022-04-27 16:32] LABS: #Eosinphils 0.1 thou/uL (0.0-0.7); #Lymphocytes 1.5 thou/uL (1.20-3.40); #Monocytes 0.8 thou/uL (0.11-0.59); %Basophils 0.3 % (0.0-1.0); %Eosinophils 0.7 % (0.0-10.0); %Lymphocytes 12.3 % (21.0-51.0); %Monocytes 6.2 % (0.0-10.0); %Neutrophils 80.5 % (42.0-75.0); Hemoglobin 14.3 g/dL (14.0-18.0); Mean Corpuscular HGB CONC 32.8 g/dL (32.0-36.0); Mean Corpuscular Hemoglobin 29.8 pg (27.0-31.0); Mean Corpuscular Volume 90.8 fl (78.0-98.0); Mean Platelet Volume 7.4 fL (7.4-10.4); Platelet Count 197 10x3/uL (130-400); RBC Distribution Width 12.8 % (11.5-14.5); Red Blood Cell (RBC) Count 4.81 mill/uL (4.70-6.10); White Blood Cell (WBC) Count 12.4 10x3/uL (4.8-10.8)
[2022-04-27 16:55] LABS: ALT (SGPT) 18 U/L (8-55); AST (SGOT) 16 U/L (5-34); Albumin 3.6 g/dL (3.4-4.8); Alkaline Phosphatase 71 U/L (40-110); Anion Gap 11 mmol/L (10-20); BUN (Urea Nitrogen) 20 mg/dL (8.4-25.7); Bilirubin, Total 0.5 mg/dL (0.2-1.2); Calc. Creatinine Clearance 0 mL/min (70-130); Calcium 8.7 mg/dL (7.8-10.44); Carbon Dioxide 24 mmol/L (23-31); Chloride 104 mmol/L (98-107); Estimated GFR 81; Globulin 2.5 g/dL (2.4-3.5); Glucose 108 mg/dL (80-115); Lipase 8 U/L (8-78); Protein, Total 6.1 g/dL (5.8-8.1); Sodium 134 mmol/L (136-145)
[2022-04-27 17:27] LABS: SARS-CoV-2 NAA Rapid Test Not Detected (NotDetected)
== END 2022-04-27 19:09 | disposition home or self-care (01) ==
LOC: ERS 15:55
DX: J20.9 Acute bronchitis, unspecified (principal); K85.90 Acute pancreatitis without necrosis or infection, unspecified; E78.5 Hyperlipidemia, unspecified; K21.9 Gastro-esophageal reflux disease without esophagitis; E66.9 Obesity, unspecified; J44.9 Chronic obstructive pulmonary disease, unspecified; I11.0 Hypertensive heart disease with heart failure; I50.9 Heart failure, unspecified; Z20.822 Contact with and (suspected) exposure to COVID-19
CPT/HCPCS: 71045; 0240U; 71275; 74177; 80053; 83690; 83880; 84484; 85025; 93005; 94760; Q9967

== ENCOUNTER 2022-05-20 10:27 | Emergency (ER) | payer OTHER ==
[2022-05-20 11:13] LABS: #Basophils 0.1 thou/uL (0.0-0.2); #Eosinphils 0.2 thou/uL (0.0-0.7); #Lymphocytes 1.1 thou/uL (1.20-3.40); #Monocytes 0.6 thou/uL (0.11-0.59); %Basophils 0.6 % (0.0-1.0); %Eosinophils 2.9 % (0.0-10.0); %Lymphocytes 13.8 % (21.0-51.0); %Monocytes 7.1 % (0.0-10.0); %Neutrophils 75.6 % (42.0-75.0); Hemoglobin 14.3 g/dL (14.0-18.0); Mean Corpuscular HGB CONC 34.1 g/dL (32.0-36.0); Mean Corpuscular Hemoglobin 31.3 pg (27.0-31.0); Mean Corpuscular Volume 91.7 fl (78.0-98.0); Mean Platelet Volume 7.5 fL (7.4-10.4); Platelet Count 134 10x3/uL (130-400); RBC Distribution Width 13.4 % (11.5-14.5); Red Blood Cell (RBC) Count 4.56 mill/uL (4.70-6.10)
[2022-05-20 11:29] LABS: ALT (SGPT) 37 U/L (8-55); AST (SGOT) 22 U/L (5-34); Albumin 3.5 g/dL (3.4-4.8); Alkaline Phosphatase 72 U/L (40-110); Anion Gap 14 mmol/L (10-20); BUN (Urea Nitrogen) 20 mg/dL (8.4-25.7); Bilirubin, Total 0.5 mg/dL (0.2-1.2); Calc. Creatinine Clearance 0 mL/min (70-130); Calcium 8.8 mg/dL (7.8-10.44); Carbon Dioxide 23 mmol/L (23-31); Chloride 103 mmol/L (98-107); Estimated GFR 80; Globulin 2.7 g/dL (2.4-3.5); Glucose 111 mg/dL (80-115); Lipase 6 U/L (8-78); Potassium 4.6 mmol/L (3.5-5.1); Protein, Total 6.2 g/dL (5.8-8.1); Sodium 135 mmol/L (136-145)
== END 2022-05-20 13:07 | disposition home or self-care (01) ==
LOC: ERS 10:27
DX: J18.9 Pneumonia, unspecified organism (principal); I11.0 Hypertensive heart disease with heart failure; I50.9 Heart failure, unspecified; E78.5 Hyperlipidemia, unspecified; K21.9 Gastro-esophageal reflux disease without esophagitis; E66.9 Obesity, unspecified; J44.9 Chronic obstructive pulmonary disease, unspecified; Z79.01 Long term (current) use of anticoagulants; Z79.899 Other long term (current) drug therapy
CPT/HCPCS: 36415; 71045; 80053; 83605; 83690; 83880; 84484; 85025; 87040; 93005

== ENCOUNTER 2022-06-02 13:04 | Inpatient (IN) | payer OTHER ==
[2022-06-02 13:34] LABS: #Eosinphils 0.2 thou/uL (0.0-0.7); #Lymphocytes 1.9 thou/uL (1.20-3.40); #Monocytes 0.6 thou/uL (0.11-0.59); #Neutrophils 3.3 thou/uL (1.40-6.50); %Basophils 0.4 % (0.0-1.0); %Eosinophils 2.9 % (0.0-10.0); %Lymphocytes 31.4 % (21.0-51.0); %Monocytes 10.1 % (0.0-10.0); %Neutrophils 55.1 % (42.0-75.0); Hemoglobin 12.5 g/dL (14.0-18.0); Mean Corpuscular HGB CONC 34.1 g/dL (32.0-36.0); Mean Corpuscular Volume 90.9 fl (78.0-98.0); Platelet Count 204 10x3/uL (130-400); RBC Distribution Width 13.9 % (11.5-14.5); Red Blood Cell (RBC) Count 4.03 mill/uL (4.70-6.10)
[2022-06-02 13:56] LABS: ALT (SGPT) 35 U/L (8-55); AST (SGOT) 28 U/L (5-34); Albumin 3.7 g/dL (3.4-4.8); Alkaline Phosphatase 67 U/L (40-110); Anion Gap 14 mmol/L (10-20); BUN (Urea Nitrogen) 17 mg/dL (8.4-25.7); Bilirubin, Total 0.7 mg/dL (0.2-1.2); Calc. Creatinine Clearance 0 mL/min (70-130); Calcium 8.7 mg/dL (7.8-10.44); Carbon Dioxide 25 mmol/L (23-31); Chloride 105 mmol/L (98-107); Estimated GFR 70; Globulin 2.8 g/dL (2.4-3.5); Glucose 123 mg/dL (80-115); Potassium 4.4 mmol/L (3.5-5.1); Protein, Total 6.5 g/dL (5.8-8.1); Sodium 140 mmol/L (136-145)
[2022-06-02] MEDS ORDERED: Acetaminophen 500 MG TAB ONE (14:19)
[2022-06-02] MEDS ORDERED: Aspirin Chewable 81 MG TAB ONE (14:19)
[2022-06-02] MEDS ORDERED: Furosemide 40 MG/4 ML VIAL ONE (14:19)
[2022-06-02] MEDS ORDERED: Dexamethasone 10 MG/ML VIAL ONE (14:39)
[2022-06-02] MEDS ORDERED: Ipratropium/Albuterol 3 ML NEB ONE ×2 (14:39→14:41)
[2022-06-02] MEDS ORDERED: Magnesium 2 GM/50 ML BAG (IN WATER) ONE (14:39)
[2022-06-02] MEDS ORDERED: Bisacodyl 5 MG TAB PO PRN (18:45)
[2022-06-02] MEDS ORDERED: Bisacodyl 10 MG SUPP PR PRN (18:45)
[2022-06-02] MEDS ORDERED: Acetaminophen 325 MG TAB PO PRN ×2 (18:45→19:00)
[2022-06-02] MEDS ORDERED: Senokot S 8.6-50 MG TAB PO PRN (18:45)
[2022-06-02] MEDS ORDERED: Ondansetron PF 4 MG/2 ML Vial IVP PRN (19:00)
[2022-06-02] MEDS ORDERED: Ondansetron ODT 4 MG TAB SL PRN (19:00)
[2022-06-02 19:27] VITALS: BMI 49.9
[2022-06-02] MEDS ORDERED: Furosemide 20 MG/2 ML VIAL SLOW IVP SCH (20:30)
[2022-06-02] MEDS: Famotidine 20 MG TAB PO SCH (20:38)
[2022-06-02] MEDS: Apixaban 5 MG TAB PO SCH (20:38)
[2022-06-02] MEDS: Flecainide 50 MG TAB PO SCH (20:39)
[2022-06-02] MEDS: Atorvastatin Calcium 20 MG TAB PO SCH (20:39)
[2022-06-02 21:29] LABS: Troponin I Less than 0.010 ng/mL (< 0.028)
[2022-06-03] MEDS: Furosemide 40 MG/4 ML VIAL SLOW IVP SCH ×2 (05:02→15:24)
[2022-06-03 05:44] LABS: #Eosinphils 0.2 thou/uL (0.0-0.7); #Lymphocytes 0.8 thou/uL (1.20-3.40); #Monocytes 0.3 thou/uL (0.11-0.59); %Basophils 0.1 % (0.0-1.0); %Eosinophils 2.8 % (0.0-10.0); %Lymphocytes 12.9 % (21.0-51.0); %Monocytes 4.7 % (0.0-10.0); %Neutrophils 79.6 % (42.0-75.0); Hemoglobin 12.8 g/dL (14.0-18.0); Mean Corpuscular HGB CONC 33.4 g/dL (32.0-36.0); Mean Corpuscular Hemoglobin 30.2 pg (27.0-31.0); Mean Corpuscular Volume 90.5 fl (78.0-98.0); Mean Platelet Volume 7.3 fL (7.4-10.4); Platelet Count 221 10x3/uL (130-400); RBC Distribution Width 14.1 % (11.5-14.5); Red Blood Cell (RBC) Count 4.24 mill/uL (4.70-6.10); White Blood Cell (WBC) Count 6.3 10x3/uL (4.8-10.8)
[2022-06-03 06:04] LABS: Anion Gap 15 mmol/L (10-20); BUN (Urea Nitrogen) 18 mg/dL (8.4-25.7); Calc. Creatinine Clearance 121 mL/min (70-130); Calcium 8.9 mg/dL (7.8-10.44); Carbon Dioxide 21 mmol/L (23-31); Chloride 103 mmol/L (98-107); Estimated GFR 67; Glucose 142 mg/dL (80-115); Potassium 4.4 mmol/L (3.5-5.1); Sodium 135 mmol/L (136-145)
[2022-06-03] MEDS: Famotidine 20 MG TAB PO SCH ×2 (08:00→21:21)
[2022-06-03] MEDS: Lisinopril 10 MG TAB PO SCH (08:00)
[2022-06-03] MEDS: Apixaban 5 MG TAB PO SCH ×2 (08:00→21:21)
[2022-06-03] MEDS: Flecainide 50 MG TAB PO SCH ×2 (08:00→21:21)
[2022-06-03] MEDS: Atorvastatin Calcium 20 MG TAB PO SCH (21:21)
[2022-06-04 05:25] LABS: #Eosinphils 0.2 thou/uL (0.0-0.7); #Neutrophils 6.1 thou/uL (1.40-6.50); %Basophils 0.1 % (0.0-1.0); %Eosinophils 2.4 % (0.0-10.0); %Lymphocytes 21.7 % (21.0-51.0); %Monocytes 10.6 % (0.0-10.0); %Neutrophils 65.2 % (42.0-75.0); Mean Corpuscular Hemoglobin 29.9 pg (27.0-31.0); Mean Corpuscular Volume 90.6 fl (78.0-98.0); Mean Platelet Volume 7.4 fL (7.4-10.4); Platelet Count 256 10x3/uL (130-400); RBC Distribution Width 14.4 % (11.5-14.5); Red Blood Cell (RBC) Count 4.35 mill/uL (4.70-6.10); White Blood Cell (WBC) Count 9.3 10x3/uL (4.8-10.8)
[2022-06-04 05:41] LABS: Anion Gap 14 mmol/L (10-20); BUN (Urea Nitrogen) 29 mg/dL (8.4-25.7); Calc. Creatinine Clearance 100 mL/min (70-130); Calcium 9.2 mg/dL (7.8-10.44); Carbon Dioxide 27 mmol/L (23-31); Chloride 102 mmol/L (98-107); Estimated GFR 53; Glucose 104 mg/dL (80-115); Potassium 4.5 mmol/L (3.5-5.1); Sodium 138 mmol/L (136-145)
[2022-06-04] MEDS: Furosemide 40 MG/4 ML VIAL SLOW IVP SCH (06:11)
[2022-06-04] MEDS: Flecainide 50 MG TAB PO SCH (08:35)
[2022-06-04] MEDS: Lisinopril 10 MG TAB PO SCH (08:36)
[2022-06-04] MEDS: Apixaban 5 MG TAB PO SCH (08:36)
[2022-06-04] MEDS: Famotidine 20 MG TAB PO SCH (08:36)
[2022-06-04 08:46] VITALS: BP 114/59; TEMP 97.7
== END 2022-06-04 11:20 | disposition home or self-care (01) | DRG 315 ==
LOC: ERS 13:04 → 2SW 17:50 → OBSVTOIN 19:00
PROVIDERS: ADMIT Hospitalist; ATTEND Hospitalist
DX: I27.20 Pulmonary hypertension, unspecified (principal); Z68.42 Body mass index [BMI] 45.0-49.9, adult; I11.0 Hypertensive heart disease with heart failure; E66.2 Morbid (severe) obesity with alveolar hypoventilation; I50.811 Acute right heart failure; Z20.822 Contact with and (suspected) exposure to COVID-19; J44.9 Chronic obstructive pulmonary disease, unspecified; I44.0 Atrioventricular block, first degree; I48.0 Paroxysmal atrial fibrillation; I87.8 Other specified disorders of veins; K80.20 Calculus of gallbladder without cholecystitis without obstruction; I08.1 Rheumatic disorders of both mitral and tricuspid valves; Z99.89 Dependence on other enabling machines and devices; Z79.899 Other long term (current) drug therapy; Z79.01 Long term (current) use of anticoagulants; Z79.82 Long term (current) use of aspirin
CPT/HCPCS: 36415; 71045; 71275; 74177; 76705; 80048; 80053; 83880; 84484; 85025; 93005; 96365; 96375; G0378; J1100; J1940; J3475; J7620; U0003; U0005

== ENCOUNTER 2022-06-15 08:30 | Observation (INO) | payer OTHER ==
[2022-06-15 09:55] VITALS: BMI 48.9
[2022-06-15] MEDS ORDERED: Nitroglycerin 0.4 MG TAB (25 Tab Bottle) SL PRN (10:13)
[2022-06-15] MEDS ORDERED: Acetaminophen 325 MG TAB PO PRN (10:16)
[2022-06-15] MEDS ORDERED: Senokot S 8.6-50 MG TAB PO PRN (10:16)
[2022-06-15] MEDS ORDERED: Calcium Carbonate 500 MG ChewTAB PO PRN (10:16)
[2022-06-15] MEDS ORDERED: Electrolyte Replacement Protocol 1 EACH FS SCH (10:30)
[2022-06-15] MEDS ORDERED: Flecainide 50 MG TAB PO SCH (12:00)
[2022-06-15 12:05] LABS: Troponin I Less than 0.010 ng/mL (< 0.028)
[2022-06-15] MEDS ORDERED: Communication Order-Pharmacy FS SCH (12:30)
[2022-06-15] MEDS ORDERED: Adenosine 6 MG/2 ML VIAL ONE (12:40)
[2022-06-15] MEDS ORDERED: Nitroglycerin 100MG/250ML BOT 250 ML ONE (12:40)
[2022-06-15] MEDS ORDERED: Verapamil 5 MG/2 ML VIAL ONE (12:40)
[2022-06-15] MEDS ORDERED: Heparin 10,000 UNITS/ 10 ML VIAL ONE (12:40)
[2022-06-15] MEDS ORDERED: Midazolam HCl 2 mg/2 ml Vial ONE (13:16)
[2022-06-15] MEDS ORDERED: FENTANYL 50 MCG/ML 1 ML VIAL ONE (13:16)
[2022-06-15] MEDS ORDERED: Lidocaine 1% (PF) 30 ML VIAL ONE (13:17)
[2022-06-15] MEDS: Ipratropium Bromide 2.5 ml Neb NEB SCH ×2 (13:20→18:42)
[2022-06-15 15:55] LABS: Troponin I Less than 0.010 ng/mL (< 0.028)
[2022-06-15] MEDS: Atorvastatin Calcium 20 MG TAB PO SCH (20:06)
[2022-06-15] MEDS: Famotidine 20 MG TAB PO SCH (20:06)
[2022-06-15] MEDS: Flecainide 50 MG TAB PO SCH (20:06)
[2022-06-15] MEDS ORDERED: Apixaban 5 MG TAB PO SCH (21:00)
[2022-06-16] MEDS: Ipratropium Bromide 2.5 ml Neb NEB SCH ×4 (00:15→19:01)
[2022-06-16 05:08] LABS: #Eosinphils 0.2 thou/uL (0.0-0.7); #Monocytes 0.6 thou/uL (0.11-0.59); #Neutrophils 6.2 thou/uL (1.40-6.50); %Basophils 0.1 % (0.0-1.0); %Eosinophils 2.6 % (0.0-10.0); %Lymphocytes 21.8 % (21.0-51.0); %Monocytes 6.4 % (0.0-10.0); %Neutrophils 69.1 % (42.0-75.0); Hemoglobin 12.6 g/dL (14.0-18.0); Mean Corpuscular HGB CONC 33.1 g/dL (32.0-36.0); Mean Corpuscular Hemoglobin 30.5 pg (27.0-31.0); Mean Platelet Volume 7.9 fL (7.4-10.4); Platelet Count 168 10x3/uL (130-400); RBC Distribution Width 14.7 % (11.5-14.5); Red Blood Cell (RBC) Count 4.12 mill/uL (4.70-6.10)
[2022-06-16 05:19] LABS: Anion Gap 14 mmol/L (10-20); BUN (Urea Nitrogen) 17 mg/dL (8.4-25.7); Calc. Creatinine Clearance 130 mL/min (70-130); Calcium 8.7 mg/dL (7.8-10.44); Carbon Dioxide 21 mmol/L (23-31); Chloride 105 mmol/L (98-107); Estimated GFR 75; Glucose 96 mg/dL (80-115); Magnesium 2.2 mg/dL (1.6-2.6); Potassium 4.5 mmol/L (3.5-5.1); Sodium 135 mmol/L (136-145)
[2022-06-16] MEDS: Aspirin Chewable 81 MG TAB PO SCH (08:37)
[2022-06-16] MEDS: Famotidine 20 MG TAB PO SCH ×2 (08:37→21:16)
[2022-06-16] MEDS ORDERED: Furosemide 40 MG TAB PO SCH (09:00)
[2022-06-16] MEDS ORDERED: Lisinopril 10 MG TAB PO SCH (09:00)
[2022-06-16] MEDS: Flecainide 50 MG TAB PO SCH ×2 (14:23→21:16)
[2022-06-16] MEDS ORDERED: Sodium Chloride 0.9% 500 ML IV SCH (17:30)
[2022-06-16] MEDS: Atorvastatin Calcium 20 MG TAB PO SCH (21:15)
[2022-06-17] MEDS: Ipratropium Bromide 2.5 ml Neb NEB SCH ×4 (00:20→19:07)
[2022-06-17] MEDS ORDERED: Sodium Chloride 0.9% 1,000 ML IV SCH (07:00)
[2022-06-17] MEDS ORDERED: Lisinopril 5 MG TAB PO SCH (09:00)
[2022-06-17] MEDS ORDERED: Communication Order-Pharmacy FS SCH (09:15)
[2022-06-17] MEDS: Sodium Chloride 0.9% 1,000 ML IV SCH ×2 (11:28→20:49)
[2022-06-17 11:30] LABS: #Eosinphils 0.2 thou/uL (0.0-0.7); #Lymphocytes 1.8 thou/uL (1.20-3.40); #Monocytes 0.8 thou/uL (0.11-0.59); #Neutrophils 6.4 thou/uL (1.40-6.50); %Basophils 0.3 % (0.0-1.0); %Eosinophils 1.7 % (0.0-10.0); %Lymphocytes 19.5 % (21.0-51.0); %Monocytes 8.3 % (0.0-10.0); %Neutrophils 70.1 % (42.0-75.0); Hemoglobin 12.1 g/dL (14.0-18.0); Mean Corpuscular HGB CONC 32.7 g/dL (32.0-36.0); Mean Corpuscular Hemoglobin 30.2 pg (27.0-31.0); Mean Corpuscular Volume 92.2 fl (78.0-98.0); Mean Platelet Volume 7.6 fL (7.4-10.4); Platelet Count 171 10x3/uL (130-400); RBC Distribution Width 14.9 % (11.5-14.5); White Blood Cell (WBC) Count 9.1 10x3/uL (4.8-10.8)
[2022-06-17] MEDS: Aspirin Chewable 81 MG TAB PO SCH (11:35)
[2022-06-17] MEDS: Flecainide 50 MG TAB PO SCH ×2 (11:35→20:48)
[2022-06-17] MEDS: Famotidine 20 MG TAB PO SCH ×2 (11:35→20:48)
[2022-06-17 12:12] LABS: Anion Gap 13 mmol/L (10-20); BUN (Urea Nitrogen) 25 mg/dL (8.4-25.7); Calc. Creatinine Clearance 95 mL/min (70-130); Calcium 8.8 mg/dL (7.8-10.44); Carbon Dioxide 23 mmol/L (23-31); Chloride 104 mmol/L (98-107); Estimated GFR 51; Glucose 101 mg/dL (80-115); Potassium 4.5 mmol/L (3.5-5.1); Sodium 135 mmol/L (136-145)
[2022-06-17] MEDS: Atorvastatin Calcium 20 MG TAB PO SCH (20:48)
[2022-06-18] MEDS: Ipratropium Bromide 2.5 ml Neb NEB SCH ×3 (00:17→13:31)
[2022-06-18] MEDS: Sodium Chloride 0.9% 1,000 ML IV SCH (05:24)
[2022-06-18 06:05] LABS: Anion Gap 13 mmol/L (10-20); BUN (Urea Nitrogen) 19 mg/dL (8.4-25.7); Calc. Creatinine Clearance 123 mL/min (70-130); Calcium 8.6 mg/dL (7.8-10.44); Carbon Dioxide 20 mmol/L (23-31); Cardiac Risk 2.9 (Less than 4.5); Chloride 109 mmol/L (98-107); Cholesterol 112 mg/dl (< 200 Desired); Estimated GFR 70; Glucose 90 mg/dL (80-115); HDL Cholesterol 38 mg/dL (>60 Neg Risk); LDL Cholesterol, Calculated 58 mg/dL; Potassium 4.9 mmol/L (3.5-5.1); Sodium 137 mmol/L (136-145); Triglycerides 82 mg/dL (Less than 150)
[2022-06-18] MEDS ORDERED: Lidocaine 1% (PF) 30 ML VIAL ONE (06:18)
[2022-06-18] MEDS ORDERED: Heparin 10,000 UNITS/ 10 ML VIAL ONE (06:18)
[2022-06-18] MEDS ORDERED: Midazolam HCl 2 mg/2 ml Vial ONE (07:16)
[2022-06-18] MEDS ORDERED: FENTANYL 50 MCG/ML 1 ML VIAL ONE (07:16)
[2022-06-18] MEDS ORDERED: Protamine Sulfate 50 MG/5 ML VIAL ONE (07:40)
[2022-06-18] MEDS ORDERED: Acetaminophen/Codeine 30-300mg Tablet PO PRN ×2 (07:57)
[2022-06-18] MEDS ORDERED: Sodium Chloride 0.9% 200 ML IV PRN (07:57)
[2022-06-18] MEDS ORDERED: Sodium Chloride 0.9% 1,000 ML IV SCH (07:58)
[2022-06-18] MEDS: Aspirin Chewable 81 MG TAB PO SCH (08:45)
[2022-06-18] MEDS: Famotidine 20 MG TAB PO SCH (08:45)
[2022-06-18] MEDS: Flecainide 50 MG TAB PO SCH (08:45)
[2022-06-18] MEDS ORDERED: Iopamidol 370 76% 100 ML VIAL ONE (11:22)
[2022-06-18 15:58] VITALS: BP 124/60; TEMP 97.2
[2022-06-19] MEDS ORDERED: Furosemide 40 MG TAB PO SCH (07:30)
[2022-06-20] MEDS ORDERED: Apixaban 5 MG TAB PO SCH (09:00)
== END 2022-06-18 16:18 | disposition home or self-care (01) ==
LOC: 2NO 09:44
PROVIDERS: ADMIT Internal Medicine; ATTEND Internal Medicine
PROC: 4A023N7 Measurement of Cardiac Sampling and Pressure, Left Heart, Percutaneous Approach (ICD-10-PCS; principal; 2022-06-18)
PROC: B2111ZZ Fluoroscopy of Multiple Coronary Arteries using Low Osmolar Contrast (ICD-10-PCS; 2022-06-18)
DX: R07.2 Precordial pain (principal); E87.1 Hypo-osmolality and hyponatremia; N17.9 Acute kidney failure, unspecified; I11.0 Hypertensive heart disease with heart failure; I50.32 Chronic diastolic (congestive) heart failure; E78.2 Mixed hyperlipidemia; G47.33 Obstructive sleep apnea (adult) (pediatric); I48.0 Paroxysmal atrial fibrillation; J44.9 Chronic obstructive pulmonary disease, unspecified; I44.0 Atrioventricular block, first degree; R94.39 Abnormal result of other cardiovascular function study; I87.2 Venous insufficiency (chronic) (peripheral); E66.01 Morbid (severe) obesity due to excess calories; Z68.42 Body mass index [BMI] 45.0-49.9, adult; Z87.891 Personal history of nicotine dependence; Z79.01 Long term (current) use of anticoagulants; Z79.82 Long term (current) use of aspirin; Z79.899 Other long term (current) drug therapy; Z20.822 Contact with and (suspected) exposure to COVID-19
CPT/HCPCS: 80048 ×3; 80061; 83735; 83880 ×2; 84484; 85025 ×2; 85347; 93458; 94640 ×4; C1760; C1769 ×2; G0378 ×4; J3010; U0003; U0005; 36415; 99152; J0153; J1644; J2001; J2250; J2720; J7030; J7050; Q9967

== ENCOUNTER 2022-07-29 14:04 | Inpatient (IN) | payer OTHER ==
[2022-07-29 15:25] LABS: #Eosinphils 0.1 thou/uL (0.0-0.7); #Lymphocytes 1.4 thou/uL (1.20-3.40); #Monocytes 0.6 thou/uL (0.11-0.59); #Neutrophils 6.3 thou/uL (1.40-6.50); %Basophils 0.4 % (0.0-1.0); %Eosinophils 0.9 % (0.0-10.0); %Lymphocytes 16.8 % (21.0-51.0); %Monocytes 7.4 % (0.0-10.0); %Neutrophils 74.4 % (42.0-75.0); Hemoglobin 12.3 g/dL (14.0-18.0); Mean Corpuscular HGB CONC 34.2 g/dL (32.0-36.0); Mean Corpuscular Hemoglobin 31.7 pg (27.0-31.0); Mean Corpuscular Volume 92.6 fl (78.0-98.0); Mean Platelet Volume 8.2 fL (7.4-10.4); Platelet Count 196 10x3/uL (130-400); RBC Distribution Width 13.9 % (11.5-14.5); Red Blood Cell (RBC) Count 3.87 mill/uL (4.70-6.10); White Blood Cell (WBC) Count 8.4 10x3/uL (4.8-10.8)
[2022-07-29 15:47] LABS: ALT (SGPT) 15 U/L (8-55); AST (SGOT) 19 U/L (5-34); Albumin 3.8 g/dL (3.4-4.8); Alkaline Phosphatase 62 U/L (40-110); Anion Gap 16 mmol/L (10-20); BUN (Urea Nitrogen) 54 mg/dL (8.4-25.7); Bilirubin, Total 0.3 mg/dL (0.2-1.2); Calc. Creatinine Clearance 0 mL/min (70-130); Calcium 9.1 mg/dL (7.8-10.44); Carbon Dioxide 24 mmol/L (23-31); Chloride 101 mmol/L (98-107); Estimated GFR 34; Globulin 2.9 g/dL (2.4-3.5); Glucose 115 mg/dL (80-115); Lipase 6 U/L (8-78); Potassium 5.1 mmol/L (3.5-5.1); Protein, Total 6.7 g/dL (5.8-8.1); Sodium 136 mmol/L (136-145)
[2022-07-29] MEDS ORDERED: Iopamidol-370 76% 500 ML MDV (1 ML CHARGE) ONE (15:50)
[2022-07-29] MEDS ORDERED: Aspirin Chewable 81 MG TAB ONE (15:56)
[2022-07-29] MEDS ORDERED: Atropine Sulfate 1 mg/10 ml Syringe ONE (16:43)
[2022-07-29 22:56] VITALS: BMI 48.7
[2022-07-30 04:26] LABS: #Eosinphils 0.1 thou/uL (0.0-0.7); #Lymphocytes 1.3 thou/uL (1.20-3.40); #Monocytes 0.6 thou/uL (0.11-0.59); #Neutrophils 4.8 thou/uL (1.40-6.50); %Basophils 0.3 % (0.0-1.0); %Lymphocytes 19.2 % (21.0-51.0); %Monocytes 8.7 % (0.0-10.0); %Neutrophils 69.8 % (42.0-75.0); Mean Corpuscular Hemoglobin 31.5 pg (27.0-31.0); Mean Corpuscular Volume 92.5 fl (78.0-98.0); Mean Platelet Volume 8.2 fL (7.4-10.4); Platelet Count 179 10x3/uL (130-400); RBC Distribution Width 13.8 % (11.5-14.5); Red Blood Cell (RBC) Count 3.81 mill/uL (4.70-6.10); White Blood Cell (WBC) Count 6.8 10x3/uL (4.8-10.8)
[2022-07-30 04:45] LABS: ALT (SGPT) 15 U/L (8-55); AST (SGOT) 16 U/L (5-34); Albumin 3.5 g/dL (3.4-4.8); Alkaline Phosphatase 50 U/L (40-110); Anion Gap 14 mmol/L (10-20); BUN (Urea Nitrogen) 46 mg/dL (8.4-25.7); Bilirubin, Total 0.4 mg/dL (0.2-1.2); Calc. Creatinine Clearance 82 mL/min (70-130); Calcium 8.9 mg/dL (7.8-10.44); Carbon Dioxide 24 mmol/L (23-31); Chloride 104 mmol/L (98-107); Estimated GFR 43; Globulin 2.7 g/dL (2.4-3.5); Glucose 92 mg/dL (80-115); Potassium 4.5 mmol/L (3.5-5.1); Protein, Total 6.2 g/dL (5.8-8.1); Sodium 137 mmol/L (136-145)
[2022-07-30] MEDS: Apixaban 5 MG TAB PO SCH (20:08)
[2022-07-30] MEDS: Atorvastatin Calcium 20 MG TAB PO SCH (20:08)
[2022-07-30] MEDS: Lisinopril 10 MG TAB PO SCH (20:08)
[2022-07-30] MEDS: Flecainide 50 MG TAB PO SCH (20:08)
[2022-07-31] MEDS: Furosemide 100 MG/10 ML VIAL SLOW IVP SCH ×2 (05:29→17:30)
[2022-07-31 05:32] LABS: #Eosinphils 0.1 thou/uL (0.0-0.7); #Lymphocytes 1.4 thou/uL (1.20-3.40); #Monocytes 0.5 thou/uL (0.11-0.59); #Neutrophils 5.1 thou/uL (1.40-6.50); %Basophils 0.6 % (0.0-1.0); %Eosinophils 1.9 % (0.0-10.0); %Lymphocytes 19.5 % (21.0-51.0); %Neutrophils 70.9 % (42.0-75.0); Hemoglobin 11.9 g/dL (14.0-18.0); Mean Corpuscular HGB CONC 35.5 g/dL (32.0-36.0); Mean Corpuscular Hemoglobin 33.2 pg (27.0-31.0); Mean Corpuscular Volume 93.5 fl (78.0-98.0); Mean Platelet Volume 8.1 fL (7.4-10.4); Platelet Count 181 10x3/uL (130-400); RBC Distribution Width 13.8 % (11.5-14.5); White Blood Cell (WBC) Count 7.2 10x3/uL (4.8-10.8)
[2022-07-31 05:53] LABS: Anion Gap 11 mmol/L (10-20); BUN (Urea Nitrogen) 36 mg/dL (8.4-25.7); Calc. Creatinine Clearance 97 mL/min (70-130); Carbon Dioxide 23 mmol/L (23-31); Chloride 107 mmol/L (98-107); Estimated GFR 54; Glucose 93 mg/dL (80-115); Potassium 4.4 mmol/L (3.5-5.1); Sodium 137 mmol/L (136-145)
[2022-07-31] MEDS: Ipratropium Bromide 2.5 ml Neb NEB SCH ×4 (07:58→23:44)
[2022-07-31] MEDS ORDERED: Apixaban 5 MG TAB PO SCH (09:00)
[2022-07-31] MEDS: Flecainide 50 MG TAB PO SCH ×2 (09:23→21:11)
[2022-07-31] MEDS: Lisinopril 10 MG TAB PO SCH (09:23)
[2022-07-31] MEDS: Apixaban 5 MG TAB PO SCH ×2 (09:24→21:11)
[2022-07-31] MEDS: Potassium Chloride 20 MEQ TAB PO SCH (16:38)
[2022-07-31] MEDS: Atorvastatin Calcium 20 MG TAB PO SCH (21:12)
[2022-08-01 04:59] LABS: #Eosinphils 0.1 thou/uL (0.0-0.7); #Lymphocytes 1.5 thou/uL (1.20-3.40); #Monocytes 0.6 thou/uL (0.11-0.59); #Neutrophils 5.3 thou/uL (1.40-6.50); %Basophils 0.4 % (0.0-1.0); %Eosinophils 1.4 % (0.0-10.0); %Lymphocytes 19.8 % (21.0-51.0); %Monocytes 7.6 % (0.0-10.0); %Neutrophils 70.8 % (42.0-75.0); Hemoglobin 11.9 g/dL (14.0-18.0); Mean Corpuscular Hemoglobin 32.6 pg (27.0-31.0); Mean Corpuscular Volume 93.3 fl (78.0-98.0); Platelet Count 194 10x3/uL (130-400); RBC Distribution Width 13.9 % (11.5-14.5); Red Blood Cell (RBC) Count 3.65 mill/uL (4.70-6.10); White Blood Cell (WBC) Count 7.4 10x3/uL (4.8-10.8)
[2022-08-01 05:19] LABS: Anion Gap 14 mmol/L (10-20); BUN (Urea Nitrogen) 42 mg/dL (8.4-25.7); Calc. Creatinine Clearance 67 mL/min (70-130); Carbon Dioxide 24 mmol/L (23-31); Chloride 103 mmol/L (98-107); Estimated GFR 34; Glucose 93 mg/dL (80-115); Magnesium 2.4 mg/dL (1.6-2.6); Potassium 4.4 mmol/L (3.5-5.1); Sodium 137 mmol/L (136-145)
[2022-08-01] MEDS ORDERED: Furosemide 40 MG/4 ML VIAL SLOW IVP SCH (06:00)
[2022-08-01] MEDS: Ipratropium Bromide 2.5 ml Neb NEB SCH (07:17)
[2022-08-01 07:52] VITALS: TEMP 97.6
[2022-08-01] MEDS: Apixaban 5 MG TAB PO SCH (07:53)
[2022-08-01] MEDS: Flecainide 50 MG TAB PO SCH (07:53)
[2022-08-01] MEDS: Potassium Chloride 20 MEQ TAB PO SCH (07:53)
[2022-08-01] MEDS ORDERED: Lisinopril 10 MG TAB PO SCH (09:00)
[2022-08-01 11:25] VITALS: BP 122/58
== END 2022-08-01 11:50 | disposition home or self-care (01) | DRG 291 ==
LOC: ERS 14:04 → ERHOLD 17:53 → 2NO 20:36 → OBSVTOIN 07-31 14:23
PROVIDERS: ADMIT Hospitalist; ATTEND Hospitalist
DX: I11.0 Hypertensive heart disease with heart failure (principal); I50.33 Acute on chronic diastolic (congestive) heart failure; N17.9 Acute kidney failure, unspecified; Z68.42 Body mass index [BMI] 45.0-49.9, adult; E66.2 Morbid (severe) obesity with alveolar hypoventilation; I48.0 Paroxysmal atrial fibrillation; E78.2 Mixed hyperlipidemia; K21.9 Gastro-esophageal reflux disease without esophagitis; I27.20 Pulmonary hypertension, unspecified; Z79.82 Long term (current) use of aspirin; Z79.51 Long term (current) use of inhaled steroids; Z79.01 Long term (current) use of anticoagulants; Z79.899 Other long term (current) drug therapy; Z99.89 Dependence on other enabling machines and devices
CPT/HCPCS: 36415; 71045; 74177; 80048; 80053; 83690; 83735; 83880; 84484; 85025; 93005; 93306; 93798; 94640; G0378; J0461; J1940; Q9967

== ENCOUNTER 2023-01-16 06:22 | Day surgery (SDC) | payer OTHER ==
[2023-01-15 10:14] VITALS: BMI 46.6
[2023-01-16] MEDS ORDERED: PROPOFOL 200 MG/20 ML VIAL ONE (08:49)
[2023-01-16] MEDS ORDERED: Lidocaine 1% PF 5 ML VIAL ONE (08:49)
== END 2023-01-16 10:15 | disposition home or self-care (01) ==
LOC: SDC 06:22
PROVIDERS: ATTEND Internal Medicine
PROC: 0DJ08ZZ Inspection of Upper Intestinal Tract, Via Natural or Artificial Opening Endoscopic (ICD-10-PCS; principal; 2023-01-16)
PROC: 0DBM8ZZ Excision of Descending Colon, Via Natural or Artificial Opening Endoscopic (ICD-10-PCS; 2023-01-16)
DX: K63.5 Polyp of colon (principal); K57.30 Diverticulosis of large intestine without perforation or abscess without bleeding; K21.9 Gastro-esophageal reflux disease without esophagitis; R63.4 Abnormal weight loss; K59.09 Other constipation; I48.91 Unspecified atrial fibrillation; I10 Essential (primary) hypertension; E78.00 Pure hypercholesterolemia, unspecified; E66.01 Morbid (severe) obesity due to excess calories; Z68.42 Body mass index [BMI] 45.0-49.9, adult; Z90.49 Acquired absence of other specified parts of digestive tract; Z79.01 Long term (current) use of anticoagulants; Z79.899 Other long term (current) drug therapy; Z87.891 Personal history of nicotine dependence
CPT/HCPCS: 88305; J2704

== ENCOUNTER 2023-02-01 06:46 | Emergency (ER) | payer OTHER ==
[2023-02-01 07:21] LABS: #Eosinphils 0.1 thou/uL (0.0-0.7); #Monocytes 0.5 thou/uL (0.11-0.59); #Neutrophils 4.4 thou/uL (1.40-6.50); %Basophils 0.3 % (0.0-1.0); %Eosinophils 0.9 % (0.0-10.0); %Lymphocytes 24.7 % (21.0-51.0); %Monocytes 7.2 % (0.0-10.0); %Neutrophils 66.1 % (42.0-75.0); Hematocrit 41.5 % (42.0-52.0); Hemoglobin 13.5 g/dL (14.0-18.0); Mean Corpuscular HGB CONC 32.5 g/dL (32.0-36.0); Mean Corpuscular Volume 89.1 fl (78.0-98.0); Mean Platelet Volume 9.6 fL (7.4-10.4); Platelet Count 229 10x3/uL (130-400); RBC Distribution Width 13.3 % (11.5-14.5); Red Blood Cell (RBC) Count 4.66 mill/uL (4.70-6.10); White Blood Cell (WBC) Count 6.7 10x3/uL (4.8-10.8)
[2023-02-01 07:43] LABS: ALT (SGPT) 12 U/L (8-55); AST (SGOT) 15 U/L (5-34); Albumin 4.3 g/dL (3.4-4.8); Alkaline Phosphatase 74 U/L (40-110); Anion Gap 14 mmol/L (10-20); BUN (Urea Nitrogen) 18 mg/dL (8.4-25.7); Bilirubin, Total 0.6 mg/dL (0.2-1.2); Calc. Creatinine Clearance 0 mL/min (70-130); Carbon Dioxide 26 mmol/L (23-31); Chloride 101 mmol/L (98-107); Estimated GFR 60; Globulin 2.9 g/dL (2.4-3.5); Glucose 104 mg/dL (80-115); Lipase 5 U/L (8-78); Potassium 4.2 mmol/L (3.5-5.1); Protein, Total 7.2 g/dL (5.8-8.1); Sodium 137 mmol/L (136-145)
[2023-02-01 07:45] LABS: Troponin I Less than 0.010 ng/mL (< 0.028)
[2023-02-01] MEDS ORDERED: Nitroglycerin 2% Ointment 1 INCH/1 GM Packet ONE (07:53)
[2023-02-01] MEDS ORDERED: Aspirin Chewable 81 MG TAB ONE (08:42)
[2023-02-01] MEDS ORDERED: Furosemide 100 MG/10 ML VIAL ONE (09:14)
[2023-02-01 09:54] LABS: Magnesium 2.4 mg/dL (1.6-2.6)
[2023-02-01 10:06] LABS: Troponin I Less than 0.010 ng/mL (< 0.028)
[2023-02-01] MEDS ORDERED: Iopamidol-370 76% 500 ML MDV (1 ML CHARGE) ONE (10:12)
== END 2023-02-01 10:20 | disposition home or self-care (01) ==
LOC: ERS 06:46
DX: R07.9 Chest pain, unspecified (principal); I11.0 Hypertensive heart disease with heart failure; I50.9 Heart failure, unspecified; I48.91 Unspecified atrial fibrillation; E78.5 Hyperlipidemia, unspecified; K21.9 Gastro-esophageal reflux disease without esophagitis; E66.9 Obesity, unspecified; J44.9 Chronic obstructive pulmonary disease, unspecified; Z87.891 Personal history of nicotine dependence; Z79.01 Long term (current) use of anticoagulants; Z79.899 Other long term (current) drug therapy
CPT/HCPCS: 36415; 71045; 71275; 74174; 80053; 83690; 83735; 83880; 84484; 85025; 93005; 96374; J1940; Q9967

== ENCOUNTER 2023-03-07 16:46 | Emergency (ER) | payer OTHER ==
[2023-03-07 17:40] LABS: #Neutrophils 12.2 thou/uL (1.40-6.50); %Basophils 0.3 % (0.0-1.0); %Eosinophils 0.1 % (0.0-10.0); %Lymphocytes 8.5 % (21.0-51.0); %Monocytes 6.6 % (0.0-10.0); %Neutrophils 83.9 % (42.0-75.0); Hematocrit 43.4 % (42.0-52.0); Mean Corpuscular HGB CONC 32.3 g/dL (32.0-36.0); Mean Corpuscular Hemoglobin 29.1 pg (27.0-31.0); Mean Corpuscular Volume 90.2 fl (78.0-98.0); Platelet Count 231 10x3/uL (130-400); RBC Distribution Width 13.4 % (11.5-14.5); Red Blood Cell (RBC) Count 4.81 mill/uL (4.70-6.10); White Blood Cell (WBC) Count 14.5 10x3/uL (4.8-10.8)
[2023-03-07 18:06] LABS: ALT (SGPT) 11 U/L (8-55); AST (SGOT) 17 U/L (5-34); Albumin 4.2 g/dL (3.4-4.8); Alkaline Phosphatase 80 U/L (40-110); Anion Gap 13 mmol/L (10-20); BUN (Urea Nitrogen) 17 mg/dL (8.4-25.7); Bilirubin, Total 0.6 mg/dL (0.2-1.2); Calc. Creatinine Clearance 0 mL/min (70-130); Calcium 9.2 mg/dL (7.8-10.44); Carbon Dioxide 28 mmol/L (23-31); Chloride 101 mmol/L (98-107); Estimated GFR 53; Globulin 3.5 g/dL (2.4-3.5); Glucose 116 mg/dL (80-115); Potassium 4.7 mmol/L (3.5-5.1); Protein, Total 7.7 g/dL (5.8-8.1); Sodium 137 mmol/L (136-145)
== END 2023-03-07 17:55 | disposition left against medical advice (07) ==
LOC: ERS 16:46
DX: Z53.21 Procedure and treatment not carried out due to patient leaving prior to being seen by health care provider (principal)
CPT/HCPCS: 36415; 80053; 85025

== ENCOUNTER 2023-03-26 08:46 | Outpatient (CLI) | payer OTHER | END 2023-03-26 08:47 | disposition home or self-care (01) | LOC: ULT 08:46 | PROVIDERS: ATTEND Physician Assistant | DX: Z13.6 Encounter for screening for cardiovascular disorders (principal) | CPT/HCPCS: 76775 ==

== ENCOUNTER 2023-09-22 10:28 | Emergency (ER) | payer OTHER ==
[~2023-09-22 10:28] MED LIST changes: -Iopamidol-370 76% 500 ML 1 ML ONE; +Iopamidol-370 76% 500 ML MDV (1 ML CHARGE) ONE
[2023-09-22 11:21] LABS: #Basophils 0.03 10x3/uL (0.0-0.2); #Eosinphils Less than 0.03 10x3/uL (0.0-0.7); %Basophils 0.4 % (0.0-1.0); %Eosinophils 0.3 % (0.0-10.0); %Lymphocytes 15.1 % (21.0-51.0); %Monocytes 6.4 % (0.0-10.0); %Neutrophils 76.8 % (42.0-75.0); Hematocrit 40.6 % (42.0-52.0); Hemoglobin 13.9 g/dL (14.0-18.0); Mean Corpuscular HGB CONC 34.2 g/dL (32.0-36.0); Mean Corpuscular Volume 87.5 fL (78.0-98.0); Platelet Count 201 10x3/uL (130-400); RBC Distribution Width 13.2 % (11.5-14.5); Red Blood Cell (RBC) Count 4.64 mill/uL (4.70-6.10)
[2023-09-22 11:42] LABS: ALT (SGPT) 10 U/L (8-55); AST (SGOT) 19 U/L (5-34); Albumin 3.7 g/dL (3.4-4.8); Alkaline Phosphatase 76 U/L (40-110); Anion Gap 14 mmol/L (10-20); BUN (Urea Nitrogen) 14 mg/dL (8.4-25.7); Bilirubin, Total 0.6 mg/dL (0.2-1.2); Calc. Creatinine Clearance 0 mL/min (70-130); Carbon Dioxide 23 mmol/L (23-31); Chloride 104 mmol/L (98-107); Estimated GFR 70; Globulin 3.4 g/dL (2.4-3.5); Glucose 100 mg/dL (83-110); Lipase 6 U/L (8-78); Potassium 4.9 mmol/L (3.5-5.1); Protein, Total 7.1 g/dL (5.8-8.1); Sodium 136 mmol/L (136-145)
[2023-09-22 11:49] LABS: Bacteria/HPF None Seen HPF (None Seen); Bilirubin Negative (Negative); Blood, Urine Negative (Negative); CAUTI Indications for Culture Acute Hematuria; Clarity Clear (Clear); Glucose, Urine (Dipstick) Normal (Negative); Ketone, Urine Negative (Negative); Leukocyte Negative Leu/uL (Negative); Nitrite Negative (Negative); Protein, Urine (Dipstick) Negative (Neg-Trace); RBC/HPF 0-3 HPF (0-3); Specific Gravity, Urine 1.009 (1.002-1.036); Squamous Epithelial None Seen HPF (0-3); Urobilinogen Normal mg/dL (Less than 2); WBC/HPF 0-3 HPF (0-3)
[2023-09-22 12:09] LABS: Urine Culture Reflex No No
[2023-09-22 13:03] LABS: Troponin I Less than 0.010 ng/mL (< 0.028)
== END 2023-09-22 13:34 | disposition home or self-care (01) ==
LOC: ERS 10:28
DX: R14.0 Abdominal distension (gaseous) (principal); I48.91 Unspecified atrial fibrillation; I10 Essential (primary) hypertension; Z79.01 Long term (current) use of anticoagulants; Z79.899 Other long term (current) drug therapy
CPT/HCPCS: 36415; 74177; 80053; 81001; 83690; 83880; 84484; 85025; 93005

== ENCOUNTER 2023-12-15 13:35 | Inpatient (IN) | payer OTHER ==
[2023-12-15] MEDS ORDERED: hydrOXYzine 25 MG TAB PO PRN (14:14)
[2023-12-15 15:29] LABS: Troponin I Less than 0.010 ng/mL (< 0.028)
[2023-12-15 18:03] LABS: Troponin I 0.011 ng/mL (< 0.028)
[2023-12-15] MEDS: Lisinopril 10 MG TAB PO SCH (20:34)
[2023-12-15] MEDS: Apixaban 5 MG TAB PO SCH (20:34)
[2023-12-15] MEDS: Atorvastatin Calcium 20 MG TAB PO SCH (20:34)
[2023-12-15] MEDS: Flecainide 50 MG TAB PO SCH (20:34)
[2023-12-15 23:34] LABS: Magnesium 2.3 mg/dL (1.6-2.6)
[2023-12-16] MEDS ORDERED: Atropine Sulfate 1 mg/10 ml Syringe IVP PRN (00:17)
[2023-12-16] MEDS: DOPamine 400 MG/D5W 250 ML 250 ML IVPB SCH ×2 (04:30→15:00)
[2023-12-16] MEDS: Ondansetron PF 4 MG/2 ML Vial IVP PRN (05:50)
[2023-12-16 07:20] LABS: #Basophils 0.03 10x3/uL (0.0-0.2); %Basophils 0.4 % (0.0-1.0); %Eosinophils 0.8 % (0.0-10.0); %Lymphocytes 20.1 % (21.0-51.0); Hematocrit 37.3 % (42.0-52.0); Hemoglobin 12.2 g/dL (14.0-18.0); Mean Corpuscular HGB CONC 32.7 g/dL (32.0-36.0); Mean Corpuscular Hemoglobin 30.4 pg (27.0-31.0); Mean Platelet Volume 10.6 fL (7.4-10.4); Platelet Count 214 10x3/uL (130-400); RBC Distribution Width 13.5 % (11.5-14.5); Red Blood Cell (RBC) Count 4.01 mill/uL (4.70-6.10)
[2023-12-16 07:48] LABS: Anion Gap 12 mmol/L (10-20); BUN (Urea Nitrogen) 14 mg/dL (8.4-25.7); Calc. Creatinine Clearance 95 mL/min (70-130); Calcium 8.4 mg/dL (7.8-10.44); Carbon Dioxide 24 mmol/L (23-31); Chloride 107 mmol/L (98-107); Estimated GFR 63; Glucose 86 mg/dL (83-110); Potassium 4.2 mmol/L (3.5-5.1); Sodium 139 mmol/L (136-145)
[2023-12-16] MEDS: Torsemide 20 MG TAB PO SCH (08:01)
[2023-12-16] MEDS: Aspirin Chewable 81 MG TAB PO SCH (08:01)
[2023-12-16] MEDS ORDERED: Bisacodyl 5 MG TAB PO PRN (11:15)
[2023-12-16] MEDS: Polyethylene Glycol 3350 17 GM Packet PO SCH (12:40)
[2023-12-16] MEDS: ALPRAZolam 0.25 MG TAB PO PRN (15:57)
[2023-12-16 16:26] LABS: Amphetamine Not Detected (NotDetected); Barbiturates Screen Not Detected (NotDetected); Benzodiazepine Screen Not Detected (NotDetected); Cocaine Metabolite Screen Not Detected (NotDetected); Methadone Not Detected (NotDetected); Methamphetamine Not Detected (NotDetected); Opiate Screen Not Detected (NotDetected); Oxycodone Screen Not Detected (NotDetected); Phencyclidine (PCP) Not Detected (NotDetected); THC/Cannabinoid Screen Not Detected (NotDetected); Tricyclic Screen Not Detected (NotDetected)
[2023-12-16] MEDS: Acetaminophen 325 MG TAB PO PRN (19:55)
[2023-12-16] MEDS: Senokot S 8.6-50 MG TAB PO SCH (19:55)
[2023-12-17 06:22] LABS: Anion Gap 13 mmol/L (10-20); BUN (Urea Nitrogen) 16 mg/dL (8.4-25.7); Calc. Creatinine Clearance 98 mL/min (70-130); Calcium 9.2 mg/dL (7.8-10.44); Carbon Dioxide 26 mmol/L (23-31); Chloride 102 mmol/L (98-107); Estimated GFR 62; Glucose 127 mg/dL (83-110); Magnesium 2.2 mg/dL (1.6-2.6); Potassium 3.7 mmol/L (3.5-5.1); Sodium 137 mmol/L (136-145)
[2023-12-17] MEDS: Polyethylene Glycol 3350 17 GM Packet PO SCH (11:03)
[2023-12-18] MEDS: Sodium Chloride 0.9% 500 ML IVPB SCH ×2 (02:08→04:00)
[2023-12-18 04:42] LABS: Anion Gap 15 mmol/L (10-20); BUN (Urea Nitrogen) 25 mg/dL (8.4-25.7); Calc. Creatinine Clearance 73 mL/min (70-130); Calcium 8.7 mg/dL (7.8-10.44); Carbon Dioxide 22 mmol/L (23-31); Chloride 102 mmol/L (98-107); Estimated GFR 44; Glucose 124 mg/dL (83-110); Magnesium 2.1 mg/dL (1.6-2.6); Potassium 4.1 mmol/L (3.5-5.1); Sodium 135 mmol/L (136-145)
[2023-12-18] MEDS: Milk Of Magnesia 30 ML UDCUP PO PRN (12:13)
[2023-12-18] MEDS: Bisacodyl 10 MG SUPP PR PRN (14:47)
[2023-12-19] MEDS: Sodium Chloride 0.9% 1,000 ML IV SCH (05:45)
[2023-12-19 06:39] LABS: Anion Gap 13 mmol/L (10-20); BUN (Urea Nitrogen) 25 mg/dL (8.4-25.7); Calc. Creatinine Clearance 87 mL/min (70-130); Carbon Dioxide 24 mmol/L (23-31); Chloride 102 mmol/L (98-107); Estimated GFR 54; Glucose 118 mg/dL (83-110); Magnesium 2.3 mg/dL (1.6-2.6); Potassium 4.4 mmol/L (3.5-5.1); Sodium 135 mmol/L (136-145)
[2023-12-19] MEDS ORDERED: Gentamicin 80 MG/2 ML VIAL ONE (07:02)
[2023-12-19] MEDS ORDERED: CEFAZOLIN 2 GM VIAL ONE (07:02)
[2023-12-19] MEDS ORDERED: CEFAZOLIN 1 GM VIAL ONE (07:02)
[2023-12-19] MEDS ORDERED: Lidocaine 1% (PF) 30 ML VIAL ONE ×2 (07:10→09:02)
[2023-12-19] MEDS ORDERED: fentaNYL 50 mcg/mL 1 mL Vial ONE (07:59)
[2023-12-19] MEDS ORDERED: Midazolam HCl 2 mg/2 ml Vial ONE (07:59)
[2023-12-19] MEDS ORDERED: DOPamine 400 MG/D5W 250 ML 250 ML IVPB SCH (10:15)
[2023-12-19] MEDS ORDERED: Iopamidol 370 76% 100 ML VIAL ONE (10:59)
[2023-12-19] MEDS: Flecainide 50 MG TAB PO SCH ×2 (11:36→20:03)
[2023-12-19] MEDS: DOPamine 400 MG/D5W 250 ML 250 ML IVPB SCH ×2 (13:19→23:50)
[2023-12-19] MEDS: traMADol HCl 50 MG TAB PO PRN (16:10)
[2023-12-19] MEDS: Cephalexin 250 MG CAP PO SCH (16:10)
[2023-12-19] MEDS: Lisinopril 10 MG TAB PO SCH (20:03)
[2023-12-19 21:32] LABS: Bacteria/HPF None Seen HPF (None Seen); Bilirubin Negative (Negative); Blood, Urine Negative (Negative); Clarity Clear (Clear); Glucose, Urine (Dipstick) Normal (Negative); Ketone, Urine Negative (Negative); Leukocyte Negative Leu/uL (Negative); Nitrite Negative (Negative); Protein, Urine (Dipstick) Negative (Neg-Trace); RBC/HPF None Seen HPF (0-3); Specific Gravity, Urine 1.008 (1.002-1.036); Squamous Epithelial 0-3 HPF (0-3); Urobilinogen Normal mg/dL (Less than 2); WBC/HPF None Seen HPF (0-3); pH, Urine 5.5 (5.0-9.0)
[2023-12-20] MEDS ORDERED: DOPamine 400 MG/D5W 250 ML 250 ML IVPB SCH (00:45)
[2023-12-20] MEDS: DOPamine 400 MG/D5W 250 ML 250 ML ONE (00:50)
[2023-12-20 06:07] LABS: Anion Gap 13 mmol/L (10-20); BUN (Urea Nitrogen) 24 mg/dL (8.4-25.7); Calc. Creatinine Clearance 79 mL/min (70-130); Calcium 9.2 mg/dL (7.8-10.44); Carbon Dioxide 27 mmol/L (23-31); Chloride 99 mmol/L (98-107); Estimated GFR 49; Glucose 106 mg/dL (83-110); Magnesium 2.2 mg/dL (1.6-2.6); Sodium 135 mmol/L (136-145)
[2023-12-20 07:49] LABS: #Basophils Less than 0.03 10x3/uL (0.0-0.2); %Basophils 0.2 % (0.0-1.0); %Eosinophils 0.4 % (0.0-10.0); %Lymphocytes 8.8 % (21.0-51.0); %Monocytes 7.1 % (0.0-10.0); Hematocrit 44.9 % (42.0-52.0); Hemoglobin 15.1 g/dL (14.0-18.0); Mean Corpuscular HGB CONC 33.6 g/dL (32.0-36.0); Mean Corpuscular Hemoglobin 30.3 pg (27.0-31.0); Mean Corpuscular Volume 90.2 fL (78.0-98.0); Mean Platelet Volume 9.6 fL (7.4-10.4); Platelet Count 239 10x3/uL (130-400); RBC Distribution Width 13.2 % (11.5-14.5); Red Blood Cell (RBC) Count 4.98 mill/uL (4.70-6.10)
[2023-12-20] MEDS: Sodium Chloride 0.9% 500 ML IV SCH (07:56)
[2023-12-20] MEDS: Midodrine HCl 5 MG TAB PO SCH (08:52)
[2023-12-20] MEDS ORDERED: Sodium Chloride 0.9% 500 ML IV SCH (14:00)
[2023-12-21 06:24] LABS: Anion Gap 13 mmol/L (10-20); BUN (Urea Nitrogen) 24 mg/dL (8.4-25.7); Calc. Creatinine Clearance 91 mL/min (70-130); Calcium 9.1 mg/dL (7.8-10.44); Carbon Dioxide 26 mmol/L (23-31); Chloride 101 mmol/L (98-107); Estimated GFR 58; Glucose 117 mg/dL (83-110); Magnesium 2.3 mg/dL (1.6-2.6); Sodium 136 mmol/L (136-145)
[2023-12-21] MEDS: Sodium Chloride 0.9% 500 ML IV SCH (13:07)
[2023-12-22 06:19] VITALS: BMI 44.6
[2023-12-22 10:08] LABS: Anion Gap 12 mmol/L (10-20); BUN (Urea Nitrogen) 19 mg/dL (8.4-25.7); Calc. Creatinine Clearance 112 mL/min (70-130); Calcium 9.1 mg/dL (7.8-10.44); Carbon Dioxide 25 mmol/L (23-31); Chloride 104 mmol/L (98-107); Estimated GFR 71; Glucose 115 mg/dL (83-110); Magnesium 2.4 mg/dL (1.6-2.6); Sodium 137 mmol/L (136-145)
[2023-12-22] MEDS: Sodium Chloride 0.9% 500 ML IV SCH (14:55)
[2023-12-22] MEDS: Enoxaparin 40 MG (0.4 mL) SYRINGE SC SCH (20:34)
[2023-12-23] MEDS ORDERED: Cosyntropin 250 MCG VIAL SLOW IVP SCH (03:00)
[2023-12-23] MEDS: Cosyntropin 250 MCG VIAL SLOW IVP SCH (09:17)
[2023-12-23 09:45] LABS: Anion Gap 14 mmol/L (10-20); BUN (Urea Nitrogen) 16 mg/dL (8.4-25.7); Calc. Creatinine Clearance 118 mL/min (70-130); Carbon Dioxide 20 mmol/L (23-31); Chloride 106 mmol/L (98-107); Estimated GFR 76; Glucose 135 mg/dL (83-110); Magnesium 2.2 mg/dL (1.6-2.6); Potassium 3.8 mmol/L (3.5-5.1); Sodium 136 mmol/L (136-145)
[2023-12-23 12:10] LABS: #Basophils 0.03 10x3/uL (0.0-0.2); %Basophils 0.4 % (0.0-1.0); %Eosinophils 1.7 % (0.0-10.0); %Lymphocytes 11.3 % (21.0-51.0); %Monocytes 5.8 % (0.0-10.0); %Neutrophils 80.1 % (42.0-75.0); Hematocrit 41.9 % (42.0-52.0); Hemoglobin 14.4 g/dL (14.0-18.0); Mean Corpuscular HGB CONC 34.4 g/dL (32.0-36.0); Mean Corpuscular Hemoglobin 30.3 pg (27.0-31.0); Mean Corpuscular Volume 88.2 fL (78.0-98.0); Platelet Count 212 10x3/uL (130-400); RBC Distribution Width 13.2 % (11.5-14.5); Red Blood Cell (RBC) Count 4.75 mill/uL (4.70-6.10)
[2023-12-23 18:58] VITALS: BMI 44.6
[2023-12-23] MEDS: Apixaban 5 MG TAB PO SCH (21:27)
[2023-12-25 08:13] VITALS: TEMP 98.2
[2023-12-25 13:45] VITALS: BP 182/92
== END 2023-12-25 16:10 | disposition home or self-care (01) | DRG 243 ==
LOC: INTOOBSV 13:35 → 2SW 13:35 → IMCU/EMU 12-16 04:13 → OBSVTOIN 12-16 06:09
PROVIDERS: ADMIT Internal Medicine; ATTEND Student in an Organized Health Care Education/Training Program
PROC: 0JH606Z Insertion of Pacemaker, Dual Chamber into Chest Subcutaneous Tissue and Fascia, Open Approach (ICD-10-PCS; principal; 2023-12-19)
PROC: 02H63JZ Insertion of Pacemaker Lead into Right Atrium, Percutaneous Approach (ICD-10-PCS; 2023-12-19)
PROC: 02HK3JZ Insertion of Pacemaker Lead into Right Ventricle, Percutaneous Approach (ICD-10-PCS; 2023-12-19)
DX: I49.5 Sick sinus syndrome (principal); E66.2 Morbid (severe) obesity with alveolar hypoventilation; I48.20 Chronic atrial fibrillation, unspecified; I50.32 Chronic diastolic (congestive) heart failure; N17.9 Acute kidney failure, unspecified; Z68.41 Body mass index [BMI] 40.0-44.9, adult; K86.2 Cyst of pancreas; I95.1 Orthostatic hypotension; I11.0 Hypertensive heart disease with heart failure; J44.9 Chronic obstructive pulmonary disease, unspecified; E78.00 Pure hypercholesterolemia, unspecified; K59.00 Constipation, unspecified; R10.30 Lower abdominal pain, unspecified; Z79.899 Other long term (current) drug therapy; Z79.01 Long term (current) use of anticoagulants; Z90.49 Acquired absence of other specified parts of digestive tract; Z87.891 Personal history of nicotine dependence
CPT/HCPCS: 33208; 36415; 71045; 71250; 80048; 80306; 80400; 81001; 82533; 83735; 84443; 85025; 86850; 86900; 86901; 93005; 93010; 93306; 93798; 94660; 96374; 96375; 99152; 99153; C1785; C1898; J0690; J0834; J1265; J1580; J1650; J2001; J2250; J2405; J3010; J7030; Q9967

== ENCOUNTER 2024-04-11 09:05 | Inpatient (IN) | payer MEDICARE, OTHER ==
[2024-04-11] MEDS ORDERED: Ipratropium/Albuterol 3 ML NEB ONE (09:36)
[2024-04-11] MEDS ORDERED: Furosemide 40 MG (4 mL) VIAL ONE (09:36)
[2024-04-11 10:06] LABS: #Basophils Less than 0.03 10x3/uL (0.0-0.2); %Basophils 0.3 % (0.0-1.0); %Eosinophils 0.9 % (0.0-10.0); %Lymphocytes 15.3 % (21.0-51.0); %Monocytes 8.9 % (0.0-10.0); %Neutrophils 73.1 % (42.0-75.0); Hematocrit 39.7 % (42.0-52.0); Hemoglobin 13.2 g/dL (14.0-18.0); Mean Corpuscular HGB CONC 33.2 g/dL (32.0-36.0); Mean Corpuscular Hemoglobin 29.4 pg (27.0-31.0); Mean Corpuscular Volume 88.4 fL (78.0-98.0); Mean Platelet Volume 9.5 fL (7.4-10.4); Platelet Count 176 10x3/uL (130-400); RBC Distribution Width 13.1 % (11.5-14.5); Red Blood Cell (RBC) Count 4.49 mill/uL (4.70-6.10)
[2024-04-11 10:20] LABS: ALT (SGPT) 17 U/L (8-55); AST (SGOT) 17 U/L (5-34); Albumin 3.3 g/dL (3.4-4.8); Alkaline Phosphatase 73 U/L (40-110); Anion Gap 12 mmol/L (10-20); BUN (Urea Nitrogen) 15 mg/dL (8.4-25.7); Bilirubin, Total 0.6 mg/dL (0.2-1.2); Calc. Creatinine Clearance 0 mL/min (70-130); Calcium 8.5 mg/dL (7.8-10.44); Carbon Dioxide 27 mmol/L (23-31); Chloride 101 mmol/L (98-107); Estimated GFR 83; Globulin 3.3 g/dL (2.4-3.5); Glucose 155 mg/dL (83-110); Potassium 4.2 mmol/L (3.5-5.1); Protein, Total 6.6 g/dL (5.8-8.1); Sodium 136 mmol/L (136-145)
[2024-04-11 11:30] LABS: Troponin I Less than 0.010 ng/mL (< 0.028)
[2024-04-11] MEDS ORDERED: Sodium Chloride 0.9% 100 ML ONE (11:43)
[2024-04-11] MEDS ORDERED: Azithromycin 500 MG VIAL ONE (11:43)
[2024-04-11] MEDS ORDERED: cefTRIAXone (ROCEPHIN) 1 GM VIAL ONE (11:44)
[2024-04-11] MEDS ORDERED: Sodium Chloride 0.9% 250 ML 250 ML ONE (11:44)
[2024-04-11 14:16] VITALS: BMI 45.9
[2024-04-11] MEDS: Furosemide 40 MG (4 mL) VIAL SLOW IVP SCH (15:49)
[2024-04-11] MEDS: guaiFENesin/DM ER PO SCH ×2 (15:50→21:52)
[2024-04-11] MEDS: Benzonatate 100 MG CAP PO SCH (15:50)
[2024-04-11] MEDS: Ipratropium/Albuterol 3 ML NEB NEB SCH (15:51)
[2024-04-11] MEDS: Flecainide 50 MG TAB PO SCH (21:49)
[2024-04-11] MEDS: Apixaban 5 MG TAB PO SCH (21:49)
[2024-04-11] MEDS: Famotidine 20 MG TAB PO SCH (21:50)
[2024-04-11] MEDS: Atorvastatin Calcium 20 MG TAB PO SCH (21:50)
[2024-04-12 04:36] LABS: #Basophils Less than 0.03 10x3/uL (0.0-0.2); %Basophils 0.2 % (0.0-1.0); %Lymphocytes 12.8 % (21.0-51.0); %Monocytes 10.3 % (0.0-10.0); %Neutrophils 74.4 % (42.0-75.0); Hematocrit 35.2 % (42.0-52.0); Hemoglobin 11.5 g/dL (14.0-18.0); Mean Corpuscular HGB CONC 32.7 g/dL (32.0-36.0); Mean Corpuscular Hemoglobin 29.4 pg (27.0-31.0); Mean Platelet Volume 9.9 fL (7.4-10.4); Platelet Count 154 10x3/uL (130-400); RBC Distribution Width 13.2 % (11.5-14.5); Red Blood Cell (RBC) Count 3.91 mill/uL (4.70-6.10)
[2024-04-12 04:52] LABS: ALT (SGPT) 13 U/L (8-55); AST (SGOT) 15 U/L (5-34); Albumin 2.8 g/dL (3.4-4.8); Alkaline Phosphatase 57 U/L (40-110); Anion Gap 12 mmol/L (10-20); BUN (Urea Nitrogen) 16 mg/dL (8.4-25.7); Bilirubin, Total 0.6 mg/dL (0.2-1.2); Calc. Creatinine Clearance 130 mL/min (70-130); Calcium 7.9 mg/dL (7.8-10.44); Carbon Dioxide 26 mmol/L (23-31); Chloride 102 mmol/L (98-107); Estimated GFR 82; Globulin 2.8 g/dL (2.4-3.5); Glucose 104 mg/dL (83-110); Magnesium 2.1 mg/dL (1.6-2.6); Protein, Total 5.6 g/dL (5.8-8.1); Sodium 136 mmol/L (136-145)
[2024-04-12 04:55] LABS: Hemoglobin A1c 5.7 % (4.0-6.0)
[2024-04-12] MEDS: cefTRIAXone\\ROCEPHIN 1 GM in Sodium Chloride 0.9% 100 ML IVPB SCH (10:05)
[2024-04-12] MEDS: Azithromycin 500 MG in Sodium Chloride 0.9% 250 ML 250 ML IVPB SCH (13:32)
[2024-04-12] MEDS: Acetaminophen 500 MG TAB PO PRN (20:53)
[2024-04-13 05:06] LABS: Anion Gap 11 mmol/L (10-20); BUN (Urea Nitrogen) 20 mg/dL (8.4-25.7); Calc. Creatinine Clearance 121 mL/min (70-130); Calcium 8.1 mg/dL (7.8-10.44); Carbon Dioxide 26 mmol/L (23-31); Chloride 102 mmol/L (98-107); Estimated GFR 78; Glucose 103 mg/dL (83-110); Potassium 3.9 mmol/L (3.5-5.1); Sodium 135 mmol/L (136-145)
[2024-04-13 12:23] VITALS: BP 153/84; TEMP 98
== END 2024-04-13 15:47 | disposition home or self-care (01) | DRG 193 ==
LOC: ERS 09:05 → 2NO 12:35
PROVIDERS: ADMIT Family Medicine; ATTEND Internal Medicine
DX: J18.9 Pneumonia, unspecified organism (principal); I50.33 Acute on chronic diastolic (congestive) heart failure; J96.21 Acute and chronic respiratory failure with hypoxia; J44.0 Chronic obstructive pulmonary disease with (acute) lower respiratory infection; Z68.41 Body mass index [BMI] 40.0-44.9, adult; I48.20 Chronic atrial fibrillation, unspecified; K21.9 Gastro-esophageal reflux disease without esophagitis; I11.0 Hypertensive heart disease with heart failure; Z79.899 Other long term (current) drug therapy; Z79.01 Long term (current) use of anticoagulants; Z98.890 Other specified postprocedural states; Z95.0 Presence of cardiac pacemaker; G47.33 Obstructive sleep apnea (adult) (pediatric); I49.5 Sick sinus syndrome; E78.5 Hyperlipidemia, unspecified; E66.01 Morbid (severe) obesity due to excess calories; Z90.49 Acquired absence of other specified parts of digestive tract; L81.9 Disorder of pigmentation, unspecified; I44.0 Atrioventricular block, first degree; I45.10 Unspecified right bundle-branch block
CPT/HCPCS: 36415; 71045; 71046; 80048; 80053; 83036; 83605; 83735; 83880; 84484; 85025; 87040; 93005; 94640; 94644; 94760; 96365; 96375; J0456; J0696; J1940; J7050; J7620

== ENCOUNTER 2024-04-19 10:50 | Emergency (ER) | payer OTHER | END 2024-04-19 13:48 | disposition home or self-care (01) | LOC: ERS 10:50 | DX: S80.12XA Contusion of left lower leg, initial encounter (principal); I11.0 Hypertensive heart disease with heart failure; I50.9 Heart failure, unspecified; K21.9 Gastro-esophageal reflux disease without esophagitis; I48.91 Unspecified atrial fibrillation; Z79.899 Other long term (current) drug therapy; Z79.01 Long term (current) use of anticoagulants; W19.XXXA Unspecified fall, initial encounter ==

== ENCOUNTER 2024-05-13 19:49 | Emergency (ER) | payer OTHER ==
[2024-05-13 20:23] LABS: INR-International Normal Ratio 1.3; PTT 47.6 sec (22.9-36.1); Prothrombin Time 16.1 sec (12.0-14.7)
[2024-05-13 20:40] LABS: ALT (SGPT) 16 U/L (Less than 45); AST (SGOT) 22 U/L (11-34); Albumin 3.7 g/dL (3.1-4.5); Alkaline Phosphatase 83 U/L (40-110); Anion Gap 11 mmol/L (10-20); BUN (Urea Nitrogen) 13 mg/dL (8.4-25.7); Bilirubin, Total 0.3 mg/dL (0.3-1.2); Calc. Creatinine Clearance 0 mL/min (70-130); Calcium 8.4 mg/dL (7.8-10.44); Carbon Dioxide 22 mmol/L (23-31); Chloride 106 mmol/L (98-107); Estimated GFR 57; Globulin 3.4 g/dL (2.4-3.5); Glucose 108 mg/dL (83-110); Potassium 4.3 mmol/L (3.5-5.1); Protein, Total 7.1 g/dL (5.8-8.1); Sodium 135 mmol/L (136-145)
[2024-05-13 21:02] LABS: #Basophils 0.05 10x3/uL (0.0-0.2); %Basophils 0.5 % (0.0-1.0); %Eosinophils 0.5 % (0.0-10.0); %Lymphocytes 21.2 % (21.0-51.0); %Monocytes 7.6 % (0.0-10.0); %Neutrophils 69.2 % (42.0-75.0); Hemoglobin 12.9 g/dL (14.0-18.0); Mean Corpuscular HGB CONC 32.3 g/dL (32.0-36.0); Mean Corpuscular Hemoglobin 29.3 pg (27.0-31.0); Mean Corpuscular Volume 90.9 fL (78.0-98.0); Mean Platelet Volume 9.3 fL (7.4-10.4); Platelet Count 238 10x3/uL (130-400); RBC Distribution Width 13.6 % (11.5-14.5)
[2024-05-13] MEDS ORDERED: Acetaminophen 500 MG TAB ONE (22:20)
== END 2024-05-13 23:17 | disposition home or self-care (01) ==
LOC: ERS 19:49
DX: I87.2 Venous insufficiency (chronic) (peripheral) (principal); I11.0 Hypertensive heart disease with heart failure; I50.9 Heart failure, unspecified; K21.9 Gastro-esophageal reflux disease without esophagitis; I48.91 Unspecified atrial fibrillation; Z55.6 Problems related to health literacy; Z79.01 Long term (current) use of anticoagulants; Z79.899 Other long term (current) drug therapy; M79.89 Other specified soft tissue disorders
CPT/HCPCS: 36415; 80053; 85025; 85379; 85610; 85730